=== PATIENT | male | born 1935 | race Caucasian/White ===

== ENCOUNTER 2022-09-03 11:42 | Emergency (ER) | payer MEDICARE, OTHER, SELFPAY ==
[2022-09-03 11:44] VITALS: BP 133/73; PULSE 53; RESP 18; TEMP 36.2; O2SAT 96; BMI 28.7
--- NOTE | 2022-09-03 11:44 | ED_ITS ---
HPI - General Adult General Date Seen: 09/03/22 Chief complaint: Neuro Symptoms/Altered Deficit Stated complaint: Slurred speech last night Time Seen by Provider: 09/03/22 11:42 Source: patient and family Mode of arrival: ambulatory Limitations: no limitations History of Present Illness HPI narrative: Patient is an 86-year-old male who had an episode last night of garbled speech. His son is here with him and helps to provide history. He apparently had called his daughter last night at around 7:00 p.m. and his speech was not making any sense. He was speaking relatively fluently but what he was saying did not make any sense. Patient says he was not aware of any problem when he called his daughter, he was surprised that his speech was off but he was aware of it once he started talking. He had not noted any problems prior to that and did not notice any other symptoms such as weakness, difficulty with vision, balance, swallowing, and did not have any headache, nausea, or other symptoms such as chest pain, lightheadedness, palpitations, shortness of breath etcetera. Over the course of their conversation, symptoms apparently improved, and they checked in on him a couple of times later in the evening and he was fine. They had apparently called paramedics but he was feeling fine at that time and declined transfer. His son does bring him in today for evaluation. He says he feels fine today, denies any symptoms. He denies any prior history of stroke. He does not have a history of atrial fibrillation, does take Coumadin due to history of valve replacement. Denies any recent trauma or illness. Related Data Home Medications Medication Instructions Recorded Confirmed atorvastatin 20 mg tablet 20 mg PO HS 12/23/21 08/26/22 celecoxib 200 mg capsule 200 mg PO DAILY 12/23/21 08/26/22 cholecalciferol (vitamin D3) 50 50 mcg PO DAILY 12/23/21 08/26/22 mcg (2,000 unit) capsule (Vitamin D3) warfarin 5 mg tablet 5 mg PO DAILY 12/23/21 08/26/22 Allergies Allergy/AdvReac Type Severity Reaction Status Date / Time indomethacin Allergy Intermediate Bleeding Verified 08/26/22 09:34 NSAIDS (Non-Steroidal Allergy Intermediate Bleeding Verified 08/26/22 09:34 Anti-Inflamma Sulfa (Sulfonamide Allergy Intermediate Hives Verified 08/26/22 09:34 Antibiotics) Review of Systems Status of ROS: Reports: 10 or more systems reviewed and unremarkable except as noted in History and below [facility] Medical History Arthritis Congestive heart failure (CHF) Hyperlipemia SHASTA (obstructive sleep apnea) Osteoarthritis of right knee Surgical History 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) H/O mitral valve replacement H/O vasectomy 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 In general, an alert, well-appearing patient. Head: Normocephalic, atraumatic. Eyes: Pupils are equal reactive. Extraocular movements are full. Conjunctivae are normal. ENT: Mucous membranes are moist. Throat is normal. Neck: Supple without lymphadenopathy. Heart: Regular rate and rhythm. No murmur or rub. Lungs: Clear bilaterally. No increased work of breathing, crackles or wheezes. Abdomen: Soft and nontender. No organomegaly. Extremities: Well perfused. No edema. No calf tenderness. Pulses intact. Neurologic: Patient is alert and oriented to person and place. Speech is fluent. Face is symmetric. Moves all extremities equally. Affect: Normal. Skin: Warm and dry. Well perfused. Const: Vital Signs, click to edit/add: Vital Signs - 24 hr 09/03/22 11:44 09/03/22 14:00 Temperature 97.2 F L Pulse Rate [Pulse Oximeter] 53 L 63 Respiratory Rate 18 Blood Pressure [Ri ght Upper Arm] 133/73 133/79 Pulse Oximetry 96 97 Oxygen Delivery Me thod Room Air Course Course Hospital Course: Diagnostic considerations include TIA, stroke, hemorrhage, encephalopathy, metabolic derangement, infectious process, acute coronary syndrome, among others. Patient had an EKG here which shows a sinus bradycardia, first-degree AV block with an incomplete right bundle-branch block. His ventricular rate is 40. I did labs which are generally unremarkable. White count is normal, hemoglobin is 13.4, platelets are very minimally low 134. INR is therapeutic at 2.4. Electrolytes are normal, creatinine is 1.1, blood sugar is 85. LFTs unremarkable, CRP less than 0.5. COVID is negative, TSH is normal, point of care troponin was 0.04. Head CT and CT angiogram read by Radiology was as fo ray[place]: IMPRESSION: 1. No CT evidence of acute cortical infarct. No acute intracranial hemorrhage. No other acute intracranial findings. 2. Mild chronic microvascular ischemic changes and multiple chronic bilateral cerebellar infarcts. Preliminary Report: Atherosclerotic disease. No large vessel occlusion. No definite acute intracranial process. No extra-axial fluid collections. No significant carotid artery stenosis. Please see final report I have reviewed all this with the patient and his son. I did discuss all this with the neurologist on-call at [place] as well, Dr. Feliciano. He did not have any recommendations for a change in anticoagulation. He felt that discharge with outpatient follow-up for further evaluation was reasonable. I do think that I am going to go ahead and have the patient set up for a Holter monitor, just to make sure that he is not having more significant bradycardia which might have contributed to his symptoms yesterday. All then have him follow up with his clinic as an outpatient and they can decide on further workup is indicated. Return at any time for recurrent symptoms or other concerns. Vital Signs Vital signs: Initial Vital Signs Temperature 97.2 F L 09/03/22 11:44 Temperature Source Temporal Artery Scan 09/03/22 11:44 Pulse Rate 53 L 09/03/22 11:44 Respiratory Rate 18 09/03/22 11:44 Blood Pressure 133/73 09/03/22 11:44 Blood Pressure Mean 93 09/03/22 11:44 Blood Pressure Position Supine 09/03/22 11:44 Pulse Oximetry 96 09/03/22 11:44 Oxygen Delivery Method 09/03/22 11:44 Vital Signs Temperature 97.2 F L 09/03/22 11:44 Pulse Rate 53 L 09/03/22 11:44 Respiratory Rate 18 09/03/22 11:44 Blood Pressure 133/73 09/03/22 11:44 Pulse Oximetry 96 09/03/22 11:44 Oxygen Delivery Method 09/03/22 11:44 Temperature 97.2 F L 09/03/22 11:44 Pulse Rate 63 09/03/22 14:00 Respiratory Rate 18 09/03/22 11:44 Blood Pressure 133/79 09/03/22 14:00 Pulse Oximetry 97 09/03/22 14:00 Oxygen Delivery Method 09/03/22 11:44 Medical Decision Making Lab Data Labs: Lab Results 09/03/22 09/03/22 09/03/22 Range/Units 12:27 12:30 12:30 WBC 8.43 (4.50-11.00) K/uL RBC 4.33 (4.30-5.90) m/uL Hgb 13.4 L (13.5-17.5) gm/dL Hct 40.8 (37.0-53.0) % MCV 94 (80-100) fL MCH 31 (26-34) pg MCHC 33 (32-36) gm/dL RDW Coeff of [place] 13.6 (11.5-15.5) % Plt Count 134 L (140-440) K/uL Neut % (Auto) 66.0 (42.0-72.0) % Lymph % (Auto) 25.6 (20-44) % [place] % (Auto) 6.3 (0.0-11.0) % Eos % (Auto) 1.8 (0.0-7.0) % Baso % (Auto) 0.2 (0.0-3.0) % Neut # (Auto) 5.56 (1.7-7.0) K/uL Lymph # (Auto) 2.16 (0.90-2.90) K/uL [place] # (Auto) 0.50 (0.00-0.90) K/UL Eos # (Auto) 0.15 (0.00-0.50) K/uL Baso # (Auto) 0.02 (0.00-0.30) K/uL ESR 3 (2-15) mm/hr INR (0.91-1.10) APTT (23-33) Seconds Sodium (135-149) mmol/L Potassium (3.6-5.1) mmol/L Chloride (96-114) mmol/L Carbon Dioxide (20-32) mmol/L BUN (7-30) mg/dL Creatinine (0.5-1.5) mg/dL Estimated Creat Clear Estimated GFR ml/min Glucose (60-115) mg/dL Calcium (8.4-10.6) mg/dL Total Bilirubin (0.1-1.5) mg/dL Direct Bilirubin (0.0-0.5) mg/dL AST (12-35) U/L ALT (4-50) U/L Alkaline Phosphatase (40-150) U/L C-Reactive Protein (0.5-1.0) mg/dL Total Protein (6.0-8.3) g/dL Albumin (3.3-5.0) g/dL TSH (0.270-4.200) uIU/mL SARS-CoV-2 (PCR) (Negative) POC Troponin I 0.04 (0.01-0.04) ng/ml 09/03/22 09/03/22 09/03/22 Range/Units 12:30 12:30 12:30 WBC (4.50-11.00) K/uL RBC (4.30-5.90) m/uL Hgb (13.5-17.5) gm/dL Hct (37.0-53.0) % MCV (80-100) fL MCH (26-34) pg MCHC (32-36) gm/dL RDW Coeff of [place] (11.5-15.5) % Plt Count (140-440) K/uL Neut % (Auto) (42.0-72.0) % Lymph % (Auto) (20-44) % [place] % (Auto) (0.0-11.0) % Eos % (Auto) (0.0-7.0) % Baso % (Auto) (0.0-3.0) % Neut # (Auto) (1.7-7.0) K/uL Lymph # (Auto) (0.90-2.90) K/uL [place] # (Auto) (0.00-0.90) K/UL Eos # (Auto) (0.00-0.50) K/uL Baso # (Auto) (0.00-0.30) K/uL ESR (2-15) mm/hr INR 2.41 H (0.91-1.10) APTT 41 H (23-33) Seconds Sodium 137 (135-149) mmol/L Potassium 4.4 (3.6-5.1) mmol/L Chloride 106 (96-114) mmol/L Carbon Dioxide 27 (20-32) mmol/L BUN 27 (7-30) mg/dL Creatinine 1.1 (0.5-1.5) mg/dL Estimated Creat Clear 51.62 Estimated GFR 66 ml/min Glucose 85 (60-115) mg/dL Calcium 8.6 (8.4-10.6) mg/dL Total Bilirubin 0.7 (0.1-1.5) mg/dL Direct Bilirubin 0.1 (0.0-0.5) mg/dL AST 29 (12-35) U/L ALT 23 (4-50) U/L Alkaline Phosphatase 78 (40-150) U/L C-Reactive Protein < 0.5 L (0.5-1.0) mg/dL Total Protein 6.4 (6.0-8.3) g/dL Albumin 3.7 (3.3-5.0) g/dL TSH 2.750 (0.270-4.200) uIU/mL SARS-CoV-2 (PCR) (Negative) POC Troponin I (0.01-0.04) ng/ml 09/03/22 Range/Units 12:30 WBC (4.50-11.00) K/uL RBC (4.30-5.90) m/uL Hgb (13.5-17.5) gm/dL Hct (37.0-53.0) % MCV (80-100) fL MCH (26-34) pg MCHC (32-36) gm/dL RDW Coeff of [place] (11.5-15.5) % Plt Count (140-440) K/uL Neut % (Auto) (42.0-72.0) % Lymph % (Auto) (20-44) % [place] % (Auto) (0.0-11.0) % Eos % (Auto) (0.0-7.0) % Baso % (Auto) (0.0-3.0) % Neut # (Auto) (1.7-7.0) K/uL Lymph # (Auto) (0.90-2.90) K/uL [place] # (Auto) (0.00-0.90) K/UL Eos # (Auto) (0.00-0.50) K/uL Baso # (Auto) (0.00-0.30) K/uL ESR (2-15) mm/hr INR (0.91-1.10) APTT (23-33) Seconds Sodium (135-149) mmol/L Potassium (3.6-5.1) mmol/L Chloride (96-114) mmol/L Carbon Dioxide (20-32) mmol/L BUN (7-30) mg/dL Creatinine (0.5-1.5) mg/dL Estimated Creat Clear Estimated GFR ml/min Glucose (60-115) mg/dL Calcium (8.4-10.6) mg/dL Total Bilirubin (0.1-1.5) mg/dL Direct Bilirubin (0.0-0.5) mg/dL AST (12-35) U/L ALT (4-50) U/L Alkaline Phosphatase (40-150) U/L C-Reactive Protein (0.5-1.0) mg/dL Total Protein (6.0-8.3) g/dL Albumin (3.3-5.0) g/dL TSH (0.270-4.200) uIU/mL SARS-CoV-2 (PCR) Negative SARS-CoV-2 (Negative) POC Troponin I (0.01-0.04) ng/ml Discharge Plan Discharge Prescriptions: No Action atorvastatin 20 mg tablet 20 mg PO HS Label Comments: TAKE 1 TABLET BY MOUTH EVERY DAY warfarin 5 mg tablet 5 mg PO DAILY Label Comments: TAKE HALF TABLET (2.5 MG) BY MOUTH EVERY MONDAY. TAKE 1 TABLET (5 MG) ALL OTHER DAYS OR DIRECTED cholecalciferol (vitamin D3) [Vitamin D3] 50 mcg (2,000 unit) capsule 50 mcg PO DAILY celecoxib 200 mg capsule 200 mg PO DAILY Label Comments: TAKE 1 CAPSULE BY MOUTH ONCE DAILY WITH A MEAL. Follow Up/Referrals: Jack Smith MD [Primary Care Provider] -
--- NOTE | 2022-09-03 12:25 | CT_ITS ---
Patient: PROSPER CANDELARIO Facility:?[facility] Patient ID:?[id number] Site Patient [id number]:?[id number]. Site :?[id number] Study:?CT-head Angio NON-ACUTE PE 95cc ISOVUE 370-09/03/2022 2:21:06 PM Ordering Physician:Christopher Dyson Final Report: INDICATION: Acute stroke, garbled speech. TECHNIQUE: CTA head with contrast bolus tracking and 3D MIP reconstruction. FINDINGS: There is normal opacification of the intracranial vasculature. There is no large vessel occlusion. No aneurysm is identified. IMPRESSION: No large vessel occlusion. Please note that all CT scans at this facility use dose modulation, iterative reconstruction, and/or weight-based dosing when appropriate to reduce radiation dose to as low as reasonably achievable. Dictated by Adriano Pendleton MD @ 09/03/2022 11:10:13 PM Signed by:?Adriano Pendleton MD @09/03/2022 11:10:13 PM (Electronic Signature)
--- NOTE | 2022-09-03 12:25 | CRLHL7_ITS ---
For Patients: As a result of the Century Cures Act, medical imaging exams and procedure reports are released immediately into your electronic medical record. You may view this report before your referring provider. If you have questions, please contact your health care provider. INDICATION: Acute stroke, garbled speech. TECHNIQUE: CTA head with contrast bolus tracking and 3D MIP reconstruction. FINDINGS: There is normal opacification of the intracranial vasculature. There is no large vessel occlusion. No aneurysm is identified. IMPRESSION: No large vessel occlusion. Please note that all CT scans at this facility use dose modulation, iterative reconstruction, and/or weight-based dosing when appropriate to reduce radiation dose to as low as reasonably achievable. Dictated by Adriano Pendleton MD @ 09/03/2022 11:10:13 PM (Electronically Signed)
--- NOTE | 2022-09-03 12:26 | CRLHL7_ITS ---
For Patients: As a result of the Century Cures Act, medical imaging exams and procedure reports are released immediately into your electronic medical record. You may view this report before your referring provider. If you have questions, please contact your health care provider. INDICATION: Garbled speech. TECHNIQUE: CT of the head without contrast. Coronal and sagittal reformats are included. COMPARISON: None. FINDINGS: No CT evidence of acute cortical infarct. No hyperdense vessels to suggest intracranial thrombus. No acute intracranial hemorrhage. No mass effect or midline shift. No hydrocephalus or extra-axial collections. Patchy white matter hypoattenuation, typical microvascular ischemic changes. Multiple small infarcts within the bilateral cerebellar hemispheres pin No acute osseous abnormalities. Mastoid air cells and paranasal sinuses are clear. Normal soft tissues. IMPRESSION: 1. No CT evidence of acute cortical infarct. No acute intracranial hemorrhage. No other acute intracranial findings. 2. Mild chronic microvascular ischemic changes and multiple chronic bilateral cerebellar infarcts. Please note that all CT scans at this facility use dose modulation, iterative reconstruction, and/or weight-based dosing when appropriate to reduce radiation dose to as low as reasonably achievable. Dictated by Ramírez Hameed MD @ 09/03/2022 2:53:11 PM (Electronically Signed)
[2022-09-03 13:05] LABS: Troponin, Point-of-Care* 0.04 ng/ml (0.01-0.04)
[2022-09-03 13:16] LABS: Basophils Absolute Auto 0.02 K/uL (0.00-0.30); Basophils Percent Auto 0.2 % (0.0-3.0); Eosinophils Absolute Auto 0.15 K/uL (0.00-0.50); Eosinophils Percent Auto 1.8 % (0.0-7.0); Hematocrit 40.8 % (37.0-53.0); Hemoglobin* 13.4 gm/dL (13.5-17.5); Immature Granulocytes Abs Auto 0.01 K/uL (0.00-0.30); Immature Granulocytes Pct Auto 0.1 %; Lymphocytes Absolute Auto 2.16 K/uL (0.90-2.90); Lymphocytes Percent Auto 25.6 % (20-44); Mean Corpuscular HGB Conc 33 gm/dL (32-36); Mean Corpuscular Hemoglobin 31 pg (26-34); Mean Corpuscular Volume 94 fL (80-100); Monocytes Percent Auto 6.3 % (0.0-11.0); Neutrophils Absolute Auto 5.56 K/uL (1.7-7.0); Platelet Count* 134 K/uL (140-440); RDW Coefficient of Variation % 13.6 % (11.5-15.5); Red Blood Count 4.33 m/uL (4.30-5.90); White Blood Count* 8.43 K/uL (4.50-11.00)
[2022-09-03 13:33] LABS: Slide Review Reflex No
[2022-09-03 13:44] LABS: Chloride* 106 mmol/L (96-114)
[2022-09-03 13:45] LABS: Albumin* 3.7 g/dL (3.3-5.0); Sodium* 137 mmol/L (135-149)
[2022-09-03 13:46] LABS: INR 2.41 (0.91-1.10); Potassium* 4.4 mmol/L (3.6-5.1); Prothrombin Time 27.4 Seconds
[2022-09-03 13:47] LABS: Creatinine* 1.1 mg/dL (0.5-1.5); Est. Creatinine Clearance* 51.62; Estimated Glomerular Filt Rate 66 ml/min; Partial Thromboplastin Time* 41 Seconds (23-33)
[2022-09-03 13:48] LABS: Alkaline Phosphatase* 78 U/L (40-150); Aspartate Amino Transferase* 29 U/L (12-35); Bilirubin Direct* 0.1 mg/dL (0.0-0.5); Bilirubin Total* 0.7 mg/dL (0.1-1.5); Carbon Dioxide* 27 mmol/L (20-32); Total Protein* 6.4 g/dL (6.0-8.3)
[2022-09-03 13:49] LABS: Alanine Aminotransferase* 23 U/L (4-50); Blood Urea Nitrogen* 27 mg/dL (7-30); Calcium* 8.6 mg/dL (8.4-10.6); Glucose* 85 mg/dL (60-115)
[2022-09-03 13:54] LABS: C Reactive Protein* < 0.5 mg/dL (0.5-1.0)
[2022-09-03 13:57] LABS: SARS PCR* Negative SARS-CoV-2 (Negative)
[2022-09-03 14:00] VITALS: BP 133/79; PULSE 63; O2SAT 97
[2022-09-03 14:25] LABS: Erythrocyte SedimentationRate* 3 mm/hr (2-15)
[2022-09-03 16:01] VITALS: BP 153/101; PULSE 53; RESP 20
== END 2022-09-03 16:29 | disposition home or self-care (01) ==
PROVIDERS: Emergency Provider Emergency Medicine; PCP Surgery
DX: R47.81 Slurred speech (principal)
CPT/HCPCS: 36415; 70450; 70496; 70498; 80048; 80076; 84443; 84484; 85025; 85610; 85651; 85730; 86140; 87635; 93005; 93225; 93226; 99284; 99285; Q9967

== ENCOUNTER 2022-10-05 15:51 | Emergency (ER) | payer MEDICARE, OTHER, SELFPAY ==
[2022-10-05 16:16] VITALS: BP 170/91; PULSE 64; RESP 16; TEMP 36.6; O2SAT 97; BMI 30.8
[2022-10-05 16:26] VITALS: O2SAT 98
--- NOTE | 2022-10-05 16:26 | CRLHL7_ITS ---
For Patients: As a result of the Cures Act, medical imaging exams and procedure reports are released immediately into your electronic medical record. You may view this report before your referring provider. If you have questions, please contact your health care provider. Indication: Trauma. Technique: Right shoulder, 3 views. Comparison: None. Findings: Bones: Alignment is normal. No fractures or bone lesions. Joint spaces: Diffuse degenerative changes.. Soft tissues: Unremarkable. Impression: No sign of acute injury. Dictated by Mary Beth Ray MD @ 10/05/2022 5:26:34 PM (Electronically Signed)
--- NOTE | 2022-10-05 16:27 | CRLHL7_ITS ---
For Patients: As a result of the Century Cures Act, medical imaging exams and procedure reports are released immediately into your electronic medical record. You may view this report before your referring provider. If you have questions, please contact your health care provider. INDICATION: FALL ON BLOOD THINNERS TECHNIQUE: CT of the head without contrast. Coronal and sagittal reformats. Bone and soft tissue algorithms. COMPARISON: CT 09/03/2022 FINDINGS: Small chronic lacunar infarcts in the bilateral cerebellum. No acute intracranial hemorrhage or extraaxial collection. No evidence of acute cortical infarction. No mass effect or midline shift. There is moderate enlargement of the 3rd and lateral ventricles, somewhat disproportionate to the depths of the sulci, with crowding of structures at the vertex. Moderate regions of decreased attenuation within the periventricular and subcortical white matter of both cerebral hemispheres most likely reflects chronic microvascular ischemic disease and age related change in this patient. Vascular calcifications within the carotid siphons and vertebral arteries. Orbital contents are normal. No calvarial fractures. No lytic or sclerotic osseous lesions within the calvarium or skull base. Scalp and other imaged soft tissue structures are normal. Mastoid air cells are clear. Chronic nonunited C1 anterior arch fracture. IMPRESSION: 1. No acute intracranial abnormality. 2. Disproportionate enlargement of the ventricles with respect to depth of the sulci raising the possibility of communicating/normal pressure hydrocephalus in the appropriate clinical setting. 3. Chronic lacunar infarcts in the bilateral cerebellum. 4. Chronic nonunited C1 anterior arch fracture. Please note that all CT scans at this facility use dose modulation, iterative reconstruction, and/or weight-based dosing when appropriate to reduce radiation dose to as low as reasonably achievable. Dictated by Royer Lovell MD @ 10/05/2022 6:06:40 PM (Electronically Signed)
[2022-10-05 17:49] LABS: Chloride* 106 mmol/L (96-114)
[2022-10-05 17:50] LABS: Potassium* 4.3 mmol/L (3.6-5.1); Sodium* 137 mmol/L (135-149)
[2022-10-05 17:52] LABS: Carbon Dioxide* 25 mmol/L (20-32); Creatinine* 1.1 mg/dL (0.5-1.5); Est. Creatinine Clearance* 51.62; Estimated Glomerular Filt Rate 66 ml/min; INR 2.91 (0.91-1.10); Prothrombin Time 31.8 Seconds
[2022-10-05 17:53] VITALS: BP 142/65; PULSE 56; O2SAT 95
[2022-10-05 17:53] LABS: Blood Urea Nitrogen* 28 mg/dL (7-30); Calcium* 9.1 mg/dL (8.4-10.6); Glucose* 112 mg/dL (60-115)
[2022-10-05 18:02] LABS: NT Pro B Type NatriureticPept* 1140 pg/mL
[2022-10-05 18:04] LABS: Troponin I* 0.04 ng/mL (0.01-0.04)
[2022-10-05 18:12] LABS: PCR FLU A Negative PCR FLU A (Negative); PCR FLU B Negative PCR FLU B (Negative); PCR RSV Negative PCR RSV (Negative)
--- NOTE | 2022-10-05 18:13 | ED.GENADULT ---
HPI - General Adult General Chief complaint: Fall/Minor Trauma Stated complaint: Fall, dizzy, doesn't know why he fell Time Seen by Provider: 10/05/22 16:20 History of Present Illness HPI narrative: 86-year-old man brought to the emergency department via EMS [place] get some wood. TTA. In later conversation Yo and his son acknowledge somewhat of a shuffling gait for some time. Unclear circumstances to this fall though he does note that fell few times today and more recently. Says he has been falling lately. Or least endorses weakness over the last year so. Unclear whether not he is really feeling more dizzy or how fell today. Further questioning reveals recent evaluation for arrhythmia. This has included some periods of tachycardia and bradycardia per their report. Does not sound as though much came of the monitoring. Their take from meeting with the transaction processor was that while we could put a pacemaker in you but I do not think it will do much good No headaches. No visual changes. Primary complaint of pain is in the right shoulder area. Thinks probably fell on this area. No chest area pain. Scraped his head yesterday in superior portion-noting this abrasion during exam. Related Data Home Medications Medication Instructions Recorded Confirmed atorvastatin 20 mg tablet 20 mg PO HS 12/23/21 10/05/22 celecoxib 200 mg capsule 200 mg PO DAILY 12/23/21 10/05/22 cholecalciferol (vitamin D3) 50 50 mcg PO DAILY 12/23/21 10/05/22 mcg (2,000 unit) capsule (Vitamin D3) warfarin 5 mg tablet 5 mg PO DAILY 12/23/21 10/05/22 Allergies Allergy/AdvReac Type Severity Reaction Status Date / Time indomethacin Allergy Intermediate Bleeding Verified 10/05/22 16:27 Sulfa (Sulfonamide Allergy Intermediate Hives Verified 10/05/22 16:27 Antibiotics) Review of Systems Status of ROS: Reports: 6 or more systems reviewed and unremarkable except as noted in History and below [facility] Medical History Arthritis ?M19.90 - Unspecified osteoarthritis, unspecified site (ICD-10) Congestive heart failure (CHF) ?I50.9 - Heart failure, unspecified (ICD-10) Hyperlipemia ?E78.5 - Hyperlipidemia, unspecified (ICD-10) SHASTA (obstructive sleep apnea) ?G47.33 - Obstructive sleep apnea (adult) (pediatric) (ICD-10) Osteoarthritis of right knee ?M17.11 - Unilateral primary osteoarthritis, right knee (ICD-10) Surgical History 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) ?M43.27 - Fusion of spine, lumbosacral region (ICD-10) H/O mitral valve replacement ?Z95.2 - Presence of prosthetic heart valve (ICD-10) H/O vasectomy ?Z98.52 - Vasectomy status (ICD-10) 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 Evidence of bleeding with light abrasion on top of scalp relatively fresh possibly yesterday. Small blood with abrasion at left hand dorsum middle. GCS of 15. Pupils are brisk and equal approximate 2 mm. Able to move all extremities without difficulty other than protecting the right arm appears at the shoulder. Cranial nerves 2-12 are intact. Extraocular movements are full and without nystagmus. Bruise on left mid back musculature. Nontender. Soreness to palpation and fullness anterolateral shoulder the deltoid area or little anterior to the acromion. Any movement really of the shoulder joint though hurts. I do not see indication of trauma at the elbow. There is no pain to direct palpation of the AC joint area or the scapula. A little too tender to really test rotator cuff musculature. Extremities otherwise are without indication of injury. No lower extremity edema. Well perfused. Head other than as noted above is atraumatic. Neck is supple nontender. No reproduction of pain to palpation over the chest. Abdomen is overweight soft and nontender. Heart with regular rate and rhythm slow near bradycardic. No instability or pain to anterior compression/palpation of the pelvis. Back as noted above is nontender with left midback bruising. Oropharynx with intact dentition. Is moist. Const: Vital Signs, click to edit/add: Vital Signs - 24 hr 10/05/22 16:16 10/05/22 16:26 10/05/22 17:53 Temperature 97.8 F Pulse Rate 56 L Pulse Rate [Pulse Oximeter] 64 Respiratory Rate 16 Blood Pressure 142/65 H Blood Pressure [Le ft Upper Arm] 170/91 H Pulse Oximetry 97 98 95 Oxygen Delivery Me thod Room Air Documenting provider has reviewed patient's vital signs: yes Course Vital Signs Vital signs: Initial Vital Signs Temperature 97.8 F 10/05/22 16:16 Temperature Source Temporal Artery Scan 10/05/22 16:16 Pulse Rate 64 10/05/22 16:16 Respiratory Rate 16 10/05/22 16:16 Blood Pressure 170/91 H 10/05/22 16:16 Blood Pressure Mean 117 H 10/05/22 16:16 Blood Pressure Position Supine 10/05/22 16:16 Pulse Oximetry 97 10/05/22 16:16 Oxygen Delivery Method Room Air 10/05/22 16:16 Vital Signs Temperature 97.8 F 10/05/22 16:16 Pulse Rate 64 10/05/22 16:16 Respiratory Rate 16 10/05/22 16:16 Blood Pressure 170/91 H 10/05/22 16:16 Pulse Oximetry 97 10/05/22 16:16 Oxygen Delivery Method Room Air 10/05/22 16:16 Temperature 97.8 F 10/05/22 16:16 Pulse Rate 56 L 10/05/22 17:53 Respiratory Rate 16 10/05/22 16:16 Blood Pressure 142/65 H 10/05/22 17:53 Pulse Oximetry 95 10/05/22 17:53 Oxygen Delivery Method Room Air 10/05/22 16:16 Medical Decision Making MDM Narrative Medical decision making narrative: Cardiac versus trip and fall. Head CT by my read seems to show enlarged right ventricle in particular while still present on prior CT is now more prominent. Concern of normal pressure hydrocephalus as reviewed by Radiology. This might explain some more recent discoordination. On labs INR is increasing. Within goal but might need some adjustment soon. Discussed with Dr. Paredes in Neurology anticipating workup yet tonight though after long conversation Mr. Vallejo would prefer to do this outpatient which I think is also acceptable as family is going to be able to be present until this gets sorted. Sister has wheeled walker. Feels he will be able to manage this. Mr. Orozco has standard walker. Given arm sling and feels improved. See patient discharge plan Lab Data Lab results reviewed: Yes I reviewed the patient's lab results Labs: Lab Results 10/05/22 10/05/22 Range/Units 17:05 17:11 INR 2.91 H (0.91-1.10) Sodium 137 (135-149) mmol/L Potassium 4.3 (3.6-5.1) mmol/L Chloride 106 (96-114) mmol/L Carbon Dioxide 25 (20-32) mmol/L BUN 28 (7-30) mg/dL Creatinine 1.1 (0.5-1.5) mg/dL Estimated Creat Clear 51.62 Estimated GFR 66 ml/min Glucose 112 (60-115) mg/dL Calcium 9.1 (8.4-10.6) mg/dL Troponin I 0.04 (0.01-0.04) ng/mL NT-Pro-B Natriuret Pep 1140 pg/mL SARS-CoV-2 (PCR) Negative SARS-CoV-2 (Negative) Influenza Type A (PCR) Negative PCR FLU A (Negative) Influenza Type B (PCR) Negative PCR FLU B (Negative) RSV (PCR) Negative PCR RSV (Negative) ECG Data Attestation: I personally reviewed and interpreted this ECG as follows: (Sinus rhythm rate of 65. First-degree AV block. Developing right bundle branch block) Critical Care Time Critical Care Time Total Critical Care Time in Minutes: 25 Discharge Plan Discharge Clinical Impression: Gait disturbance, Abrasion, Fall, Contusion of right shoulder Patient Disposition: Home w/ Parent or Adult Condition: Stable Additional Instructions: Wear this arm sling for comfort as needed over the next few days or week. I would try to ice the shoulder as discussed 2-3 times daily over the next few days. It sounds like it would be a good idea to have a walker for mobility in the short term. Perhaps a wheeled walker would do better as discussed. Please call tomorrow to [facility]. Phone number is [phone] You can mention that I spoke to Dr. Lena perez and we are recommending an evaluation for normal pressure hydrocephalus. (see radiology reads of imaging that we printed --take this with) Return for increasing and severe headache, any focal weakness, any other pass out event, chest pain, shortness of breath. If this shoulder isn't improving over a week, would follow-up with your primary care provider or Orthopedics (their phone #[phone]) for another evaluation. I would try to encourage early mobility of your shoulder if possible with some reaching exercises. Please also report your in INR to your managing Clinic. On 09/03 your INR was 2.4 and today it is 2.9 Prescriptions: No Action atorvastatin 20 mg tablet 20 mg PO HS Patient Comments: TAKE 1 TABLET BY MOUTH EVERY DAY warfarin 5 mg tablet 5 mg PO DAILY Patient Comments: TAKE HALF TABLET (2.5 MG) BY MOUTH EVERY MONDAY. TAKE 1 TABLET (5 MG) ALL OTHER DAYS OR DIRECTED cholecalciferol (vitamin D3) [Vitamin D3] 50 mcg (2,000 unit) capsule 50 mcg PO DAILY celecoxib 200 mg capsule 200 mg PO DAILY Patient Comments: TAKE 1 CAPSULE BY MOUTH ONCE DAILY WITH A MEAL. Follow Up/Referrals: Jack Smith MD [Primary Care Provider] - Stand Alone Forms: [employer] Info Instructions
[2022-10-05 19:02] LABS: SARS PCR* Negative SARS-CoV-2 (Negative)
[2022-10-05] MEDS: ACETAMINOPHEN 500 MG TABLET 1000 MG PO (20:23)
== END 2022-10-05 21:37 | disposition home or self-care (01) ==
PROVIDERS: Emergency Provider Family Medicine; PCP Surgery
DX: S40.011A Contusion of right shoulder, initial encounter (principal); W19.XXXA Unspecified fall, initial encounter; R26.9 Unspecified abnormalities of gait and mobility
CPT/HCPCS: 36415; 70450; 73030; 80048; 83880; 84484; 85610; 87631; 93005; 94761; 99284; 99291; A9270; G0390

== ENCOUNTER 2022-10-23 16:03 | Emergency (ER) | payer MEDICARE, OTHER, SELFPAY ==
[2022-10-23 16:14] VITALS: BP 155/76; PULSE 55; RESP 16; TEMP 36.4; O2SAT 98; BMI 29.4
--- NOTE | 2022-10-23 16:25 | CRLHL7_ITS ---
For Patients: As a result of the Century Cures Act, medical imaging exams and procedure reports are released immediately into your electronic medical record. You may view this report before your referring provider. If you have questions, please contact your health care provider. Indication: Headache Technique: Noncontrast head CT Comparison: Head CT 10/05/2022 Findings: No acute intracranial hemorrhage or mass. Generalized parenchymal volume loss. Periventricular hypo lucencies may represent chronic small vessel ischemic change. No acute extra-axial air fluid collections are seen. 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 The lateral and 3rd ventricles are slightly disproportionately enlarged compared to the sulci. Skull and scalp are unremarkable. Impression: 1. No acute intracranial hemorrhage or mass. Mild enlargement of the lateral 3rd ventricles slightly disproportionate to the sulci could be seen with NPH. Please note that all CT scans at this facility use dose modulation, iterative reconstruction, and/or weight-based dosing when appropriate to reduce radiation dose to as low as reasonably achievable. Dictated by Evelyn Anthony MD @ 10/23/2022 5:06:36 PM (Electronically Signed)
--- NOTE | 2022-10-23 17:16 | ED.GENADULT ---
HPI - General Adult General Chief complaint: Headache/Migraine Stated complaint: Unexplained headaches Time Seen by Provider: 10/23/22 16:05 Source: patient and family Mode of arrival: ambulatory Limitations: no limitations History of Present Illness HPI narrative: 86-year-old male coming in today complaining of a headache. He states that it comes across the forehead lasts for about a minute or less and then goes away. He states that has occurred about 3 times today. He is quite concerned because he never gets a headache. When these episodes occur he denies any neurologic deficits. He denies any confusion, slurred speech. He does state that he is unsteady on his feet but this is not necessarily new. He has suffered more recent falls and was seen in the ER in September, has since had neurology evaluation at no ran with MRI evaluation. I am unclear of those results, as he is unsure and his son was with him is also unsure of next steps. He denies any recent falls. No fevers or chills. No blurry vision. No changes in his hearing. No nausea or vomiting. No chest pain. He denies increasing weakness. Related Data Home Medications Medication Instructions Recorded Confirmed atorvastatin 20 mg tablet 20 mg PO HS 12/23/21 10/05/22 celecoxib 200 mg capsule 200 mg PO DAILY 12/23/21 10/05/22 cholecalciferol (vitamin D3) 50 50 mcg PO DAILY 12/23/21 10/05/22 mcg (2,000 unit) capsule (Vitamin D3) warfarin 5 mg tablet 5 mg PO DAILY 12/23/21 10/05/22 Allergies Allergy/AdvReac Type Severity Reaction Status Date / Time indomethacin Allergy Intermediate Bleeding Verified 10/05/22 16:27 Sulfa (Sulfonamide Allergy Intermediate Hives Verified 10/05/22 16:27 Antibiotics) Review of Systems Status of ROS: Reports: 10 or more systems reviewed and unremarkable except as noted in History and below [facility] Medical History Osteoarthritis of right knee ?M17.11 - Unilateral primary osteoarthritis, right knee (ICD-10) SHASTA (obstructive sleep apnea) ?G47.33 - Obstructive sleep apnea (adult) (pediatric) (ICD-10) Congestive heart failure (CHF) ?I50.9 - Heart failure, unspecified (ICD-10) Hyperlipemia ?E78.5 - Hyperlipidemia, unspecified (ICD-10) Arthritis ?M19.90 - Unspecified osteoarthritis, unspecified site (ICD-10) Surgical History Hx of tonsillectomy ?Z90.89 - Acquired absence of other organs (ICD-10) H/O vasectomy ?Z98.52 - Vasectomy status (ICD-10) 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) ?Z96.652 - Presence of left artificial knee joint (ICD-10) 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 Alert and oriented. Answers questions appropriately. Mood and affect are appropriate. Thoughts are goal oriented and rational. No tangential or magical thinking noted. Patient speaks in full sentences without needing to catch his breath. Speech is not slurred or pressured. HEENT: Normocephalic atraumatic. Pupils are equally round reactive to light. Extraocular muscles are intact. Conjunctivae are moist without any icterus noted. Moist mucous membranes. Neck is soft. Cardiovascular: Heart is regular rate and rhythm S1 and S2 are present without any murmurs. Lungs: Clear to auscultation bilaterally no wheezes rhonchi or rales are appreciated. Patient takes deep breaths without any discomfort. Abdomen: Soft and nontender nondistended with normal bowel sounds. Extremities: Bilateral lower extremities are without edema. Skin: Well perfused without any obvious rashes. Strength is 5/5 of the upper and lower extremities. Reflexes are 2+ and symmetric at the knees. Cranial nerves 3-12 are normal. [id number] is normal. There is no nystagmus either horizontally or vertically. Hand rfid systems engineer is normal and symmetric. No pronator drift. Normal facial symmetry. Const: Vital Signs, click to edit/add: Vital Signs - 24 hr 10/23/22 16:14 Temperature 97.5 F L Pulse Rate [Pulse Oximeter] 55 L Respiratory Rate 16 Blood Pressure [Ri ght Upper Arm] 155/76 H Pulse Oximetry 98 Oxygen Delivery Me thod Room Air Course Course Hospital Course: We discussed imaging today: Rule out any small bleed that may have been missed secondary to his falls and rule out increasing volume in the ventricles as he has had increased volume in the ventricles on previous imaging. Therefore we did go ahead proceed with a head CT which was unchanged from previous head CT. Vital Signs Vital signs: Initial Vital Signs Temperature 97.5 F L 10/23/22 16:14 Temperature Source Temporal Artery Scan 10/23/22 16:14 Pulse Rate 55 L 10/23/22 16:14 Respiratory Rate 16 10/23/22 16:14 Blood Pressure 155/76 H 10/23/22 16:14 Blood Pressure Mean 102 10/23/22 16:14 Blood Pressure Position Sitting 10/23/22 16:14 Pulse Oximetry 98 10/23/22 16:14 Oxygen Delivery Method Room Air 10/23/22 16:14 Vital Signs Temperature 97.5 F L 10/23/22 16:14 Pulse Rate 55 L 10/23/22 16:14 Respiratory Rate 16 10/23/22 16:14 Blood Pressure 155/76 H 10/23/22 16:14 Pulse Oximetry 98 10/23/22 16:14 Oxygen Delivery Method Room Air 10/23/22 16:14 Temperature 97.5 F L 10/23/22 16:14 Pulse Rate 55 L 10/23/22 16:14 Respiratory Rate 16 10/23/22 16:14 Blood Pressure 155/76 H 10/23/22 16:14 Pulse Oximetry 98 10/23/22 16:14 Oxygen Delivery Method Room Air 10/23/22 16:14 Medical Decision Making MDM Narrative Medical decision making narrative: 86-year-old male with 3 episodes of headache that lasted less than a minute, head CT unchanged from previous CT. Unclear etiology of his symptoms. We discussed symptomatic treatment and watchful waiting at the time. Discussed follow-up with neurology. Patient and son were in agreement and had no other questions. Medical Records Medical records reviewed: Yes I reviewed the patient's medical records Imaging Data CT scan - head: Attestation: I have reviewed the pertinent imaging results. Radiologist's impression: Noncontrast head CT Comparison: ?Head CT 10/05/2022 Findings: ?No acute intracranial hemorrhage or mass. Generalized parenchymal volume loss. Periventricular hypo lucencies may represent chronic small vessel ischemic change. No acute extra-axial air fluid collections are seen. 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 The lateral and 3rd ventricles are slightly disproportionately enlarged compared to the sulci. Skull and scalp are unremarkable. Impression: ?1. No acute intracranial hemorrhage or mass. Mild enlargement of the lateral 3rd ventricles slightly disproportionate to the sulci could be seen with NPH. Discharge Plan Discharge Clinical Impression: Headache Patient Disposition: Home, Self-Care Condition: Stable Additional Instructions: Return to the emergency department if your symptoms are getting worse. Otherwise, follow-up with your neurologist for further management. Prescriptions: No Action atorvastatin 20 mg tablet 20 mg PO HS Patient Comments: TAKE 1 TABLET BY MOUTH EVERY DAY warfarin 5 mg tablet 5 mg PO DAILY Patient Comments: TAKE HALF TABLET (2.5 MG) BY MOUTH EVERY MONDAY. TAKE 1 TABLET (5 MG) ALL OTHER DAYS OR DIRECTED cholecalciferol (vitamin D3) [Vitamin D3] 50 mcg (2,000 unit) capsule 50 mcg PO DAILY celecoxib 200 mg capsule 200 mg PO DAILY Patient Comments: TAKE 1 CAPSULE BY MOUTH ONCE DAILY WITH A MEAL. Follow Up/Referrals: Jack Smith MD [Primary Care Provider] - Stand Alone Forms: [employer] Info Instructions
== END 2022-10-23 17:30 | disposition home or self-care (01) ==
PROVIDERS: Emergency Provider Family Medicine; PCP Surgery
DX: R51.9 Headache, unspecified (principal)
CPT/HCPCS: 70450; 99283; 99284

== ENCOUNTER 2023-01-25 09:30 | Outpatient (RCR) | payer MEDICARE, OTHER, SELFPAY | END 2023-05-25 23:59 | disposition home or self-care (01) | PROVIDERS: PCP Surgery; Visit Provider Surgery | DX: R26.81 Unsteadiness on feet (principal); M48.061 Spinal stenosis, lumbar region without neurogenic claudication; M75.101 Unspecified rotator cuff tear or rupture of right shoulder, not specified as traumatic; M12.811 Other specific arthropathies, not elsewhere classified, right shoulder; W19.XXXS Unspecified fall, sequela; Z74.09 Other reduced mobility; R53.1 Weakness; M25.511 Pain in right shoulder; Z51.89 Encounter for other specified aftercare | CPT/HCPCS: 97110; 97112; 97161 ==

== ENCOUNTER 2023-07-05 09:30 | Outpatient (RCR) | payer MEDICARE, OTHER, SELFPAY | END 2023-09-12 14:25 | disposition home or self-care (01) | PROVIDERS: PCP Surgery; Visit Provider Surgery | DX: R26.89 Other abnormalities of gait and mobility (principal); R26.81 Unsteadiness on feet; R26.9 Unspecified abnormalities of gait and mobility; R53.1 Weakness; Z51.89 Encounter for other specified aftercare | CPT/HCPCS: 97110; 97112; 97161 ==

== ENCOUNTER 2023-11-01 23:19 | Emergency (ER) | payer MEDICARE, OTHER, SELFPAY ==
--- OUTSIDE RECORDS SUMMARY | 2023-11-01 23:23 | XMS_ITS | Clinical Summary ---
Author Name Unknown Organization [facility] Address [place], [place] [address] Care Team Providers Care Sheet Metal Worker Maintenance Name Role Phone Randy Roberts MD Unavailable Rocky Borrero Unavailable Jack Smith MD Primary Care Provider [phone] [facility], [place] Unavailable [phone] Allergies Active Allergy Reactions Criticality Noted Date Comments Indomethacin GI Bleeding Nsaids (Non-Steroidal Anti-Inflammatory Drug) Bleeding High 08/26/2022 Sulfa (Sulfonamide Antibiotics) *Unknown - Childhood Rxn 03/31/2014 Medications Medication Sig Dispensed Refills Start Date End Date Status cholecalciferol (VITAMIN D-3) 2,000 unit capsuleIndications: osteoporosis Take 1 capsule by mouth once daily. Indications: OSTEOPOROSIS 0 4 Active amoxicillin (AMOXIL) 500 mg capsule TAKE 4 CAPSULES BY MOUTH 1 HOUR BEFORE DENTAL APPOINTMENT 1 7 Active ascorbic acid, vitamin C, (VITAMIN C) 1,000 mg tablet Take 1 tablet by mouth once daily. 0 0 Active BiPapIndications:OS A (obstructive sleep apnea) bPAP machine for home use at pressure: I: 21 E: 17 cmw , Heated humidifier x 1 q 5 yr, Humidifier chamber x 1 q 6 mo, Full face mask x1 q 3mos, with cushion x 1 q mo, standard tubing x 1 q 3 mo, Headgear x 1 q 6 mo, Filters: Disposable x 2 q mo non-disposable filters x1 q 6mo, Length of Need: 99 months, Frequency of use: Daily 1 Each 3 Active celecoxib (CELEBREX) 200 mg capsuleIndications: Primary osteoarthritis of knee, unspecified laterality Take 1 Capsule (200 mg) by mouth once daily with a meal. 90 Capsule 3 3 Active atorvastatin (LIPITOR) 20 mg tabletIndications:H yperlipidemia, unspecified hyperlipidemia type Take 1 Tablet (20 mg) by mouth once daily. 90 Tablet 3 3 Active mupirocin (BACTROBAN OINTMENT) ointment Apply topically to affected area(s) 2 times daily if needed (buttocks). Active acetaminophen (TYLENOL EXTRA STRGTH) 500 mg tabletIndications:S /P placement of cardiac pacemaker Take 2 Tablets (1,000 mg) by mouth every 6 hours if needed for Pain (For mild pain.). Max acetaminophen dose: 4000mg in 24 hrs. 4 Active warfarin (COUMADIN) 5 mg tabletIndications:A nticoagulation monitoring, INR range 2.5-3.5,History of mitral valve replacement with mechanical valve Take by mouth 2.5 mg (5 mg x 0.5) every Mon, Fri; 5 mg (5 mg x 1) all other days in the evening OR as directed 4 Active clotrimazole (LOTRIMIN) 1 % creamIndications:In tertrigo Apply topically to affected area(s) two times daily. 85 g 1 4 Active clotrimazole-betame thasone cream (LOTRISONE) 1-0.05 % creamIndications:Fu ngal dermatitis Apply topically to affected area(s) two times daily. Use for 2 weeks and take at least a week off before using again. 45 g 3 3 10/09/19 24 Discontinu ed(*Medica tion adjustment ) Active Problems Problem Noted Date Diagnosed Date Osteoarthritis of fingers of hands, bilateral Sinus node dysfunction 07/07/2023 Second degree Mobitz II AV block 07/07/2023 Syncope 07/07/2023 Normal pressure hydrocephalus 10/21/2022 Overview: CT emergency room [place] with more prominent enlarged right ventricle - bigger than before - Neurology suggested evaluation for shunt Atrial fibrillation with slow ventricular respon se 09/09/2022 Stage 3a chronic kidney disease 09/09/2022 Melanoma of left upper arm 09/08/2021 SHASTA 02/27/2015 AHI-52 03/02/2015 Anticoagulation monitoring, INR range 2.5-3.5 Spinal stenosis, lumbar region, with right leg p ain 07/11/2011 Vitamin D deficiency 05/13/2009 HYPERLIPIDEMIA 06/06/2007 History of mitral valve replacement with mechani ko valve Overview: For severe mitral regurgitation. Lifelong anticoagulation. 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 09/08/2021 04/04/2022 Melanoma in situ of upper arm, left 08/23/2021 04/04/2022 Routine adult health maintenance 02/26/2018 04/02/2021 Overview: Colonoscopy 02/2018 normal, no follow up needed S/P MVR (mitral valve replacement) 04/26/2014 04/02/2021 Severe sepsis 04/24/2014 01/19/2021 Leukocytosis 04/24/2014 04/02/2021 ACP (advance care planning) 04/17/2014 04/04/2022 Overview: Patient has identified Health Care Agent(s): Yes Add Health Care Agents: Yes Medical Proxies Health Care Agent(s): Primary Health Care Agent: Diana Vallejo Relationship: Spouse , [phone] Secondary Health Care Agent: Alexander Vallejo Relationship: son , -c Conservator: Relationship: Phone: Guardian: Relationship: Phone: Pt has blank HCD form at home. Dysuria 02/20/2009 08/06/2010 Ingrowing nail 06/01/2008 04/02/2021 Corns and callosities 10/04/20072020 REPLACEMENT HEART VALVE BY OTHER MEANS 04/02/2014 Encounter for Long-Term (Cur rent) Use of Anticoagulants 12/03/2013 Overview: INR Goal Range: 2.5 -3.5 Congestive heart failure, unspecified 08/06/2010 Rheumatoid Arthritis 022 Encounters Date Type Department Care Team Description 10/30/2023 8:40 AM CDT Office Visit [facility] [place] [address] [address] Jack Smith MD Follow Up (Intertrigo has improved per patient report) 10/30/2023 Travel 10/20/2023 Anticoagulation (warfarin) [facility] [place] [address] [address] 1, [facility] Anticoagulation 10/19/2023 11:30 AM CDT Orders Only [facility] [place] [address] [place] [address] Lab, [place] [facility] 10/19/2023 Travel 10/16/2023 Orders Only [facility] Scanner 1 scan: (1-Ord) INCOMING RECORDS-LABS, [facility], 10/16/2023 10/13/2023 10:00 AM CDT Office Visit [facility] [address] [place] [address] Vin Faustin MD Teleheart, [place] [facility] (Mitral valve replacement) 10/13/2023 Travel 10/10/2023 Orders Only [facility] Scanner 1 scan: (1-Ord) INCOMING RECORDS-[facility], 10/10/2023 10/09/2023 7:25 AM CDT Office Visit [facility] [place] [address] [address] Jack Smith MD Medication Management 10/09/2023 Travel 10/05/2023 11:00 AM CDT Orders Only [facility] [place] [place] [address] Lab, [place] [facility] 10/05/2023 Anticoagulation (warfarin) [facility] [address] [place] [address] 1, [facility] Anticoagulation 10/05/2023 Travel 10/02/2023 Telephone [facility] [address] [place] [id number] [place] [phone] Hazel Marinelli, RON Device Check (Pacemaker alert transmission for AF) 09/26/2023 Refill [facility] [address] [facility] [place] [address] Brennon Biggs, Refill Request (Clotrimazole-betamet hasone Cream) 09/26/2023 Travel 09/25/2023 Telephone [facility] [address] [place] [address] Jack Smith MD Anticoagulation 09/24/2023 Travel 09/21/2023 9:50 AM CDT Orders Only [address] [address] Lab, [facility] 09/21/[address] [phone] Makenzie Jon, RON Results 09/21/2023 Anticoagulation (warfarin) [facility] [address] [place] [address] 1, [facility] Anticoagulation 09/21/2023 Travel 09/14/2023 Anticoagulation (warfarin) [facility] [address] [place] [address] 1, [facility] Anticoagulation 09/13/2023 1:30 PM CDT Orders Only [facility] [address] [place] [address] Lab, [place] [facility] 09/13/2023 Travel 09/08/2023 9:00 AM CDT Orders Only [facility] [address] [facility] [place] [address] Lab, [place] [facility] 09/08/2023 Telephone [facility] [address] [place] [address] 1, [facility] Anticoagulation (Supra Therapeutic INR ) 09/08/2023 Anticoagulation (warfarin) [facility] [address] [place] [address] 1, [facility] Anticoagulation (Lab ) 09/08/2023 Travel 08/29/2023 Refill [facility] [address] [place] [address] Jack Smith MD Refill Request (Warfarin) 08/25/2023 11:15 AM PROGRESSIVE CARE UNIT REGISTERED NURSE Orders Only [facility] [address] [place] [address] Lab, [place] [facility] 08/25/2023 Anticoagulation (warfarin) [facility] [address] [place] [address] 1, [facility] Anticoagulation (Lab ) 08/25/2023 Travel 08/11/2023 1:30 PM PROGRESSIVE CARE UNIT REGISTERED NURSE Orders Only [facility] [address] [place] [address] Lab, [place] [facility] 08/11/2023 Telephone [facility] [address] [place] [address] Jack Smith MD Anticoagulation (Dosing ) 08/11/2023 Anticoagulation (warfarin) [facility] [address] [place] [address] 1, [facility] Anticoagulation 08/11/2023 Travel 08/04/2023 11:20 AM PROGRESSIVE CARE UNIT REGISTERED NURSE Orders Only [address] [address] Lab, [place] [facility] 08/04/2023 Anticoagulation (warfarin) [facility] [address] [place] [address] 1, [facility] Anticoagulation 08/04/2023 Travel from Last 3 Months Immunizations Name Administration Dates Next Due AMB INFLUENZA IIV3 (AGE 65+ YRS) PF (Flu Clinic Only) 04/24/2018 AMB Influenza, IIV3 (Age >=3 years)(Flu Clinic Only) 04/16/2013,04/03/2012,05/04/2010 COVID-19 Vaccine Spikevax (M oderna 50mcg/0.5mL) 12YO+ [id number] Formula PF 10/30/2023,05/08/2023 COVID-19 vaccine (StumbleUpon[employer] NTech 30mcg/0.3mL) 12YO+ BIVALENT PF, MDV 04/04/2022 COVID-19 vaccine ([employer]umble[employer] NTech 30mcg/0.3mL) 12YO+ CARLITOS-SUCROSE PF, MDV 09/17/2021 COVID-19 vaccine ([employer]umble[employer] NTech 30mcg/0.3mL) PF, MDV 04/26/2021,08/20/2020,07/30/2020 Influenza, High-dose Inactivated 05/23/2016,02/17,02/28/2014 Influenza, IIV3 (Age >=3 years) 04/13/2011 Influenza, Inactivated AIIV4 (Age 65+ Years) Preserv Free 05/08/2023,04/04/2022,04/02/2021,2019 Influenza, Inactivated IIV3 (Age 65+ Years) Preserv Free 03/14/2019,07/04/2017 Pneumococcal Poly,23-Valent (Pneumovax) 08/06/2010 Pneumococcal conj 13-Valent (Prevnar 13) 03/10/2015 Td (Age >=7 Years) 08/24/2005 Tdap 05/26/2021,08/06/2010 Zoster (Shingrix-RZV, recombinant) 11/21/2018, Family History Medical History Relation Name Comments Cancer Brother 2 Colon--age 57 Other Brother 3 multiple sclero sis Heart Disease Father Rheumatic Hear t Disease Good Health Mother at 95 Other Sister 2 multiple sclero sis Relation Name Status Comments Brother 1 (Age 58) MS Brother 2 Brother 3 Father (Age 67) Rheumatic Heart Disease Mother (Age 95) Old age Sister 1 (Age 78) MS Sister 2 Social History Tobacco Use Types Packs/Day Years Used Date Smoking Tobacco: Never Smokeless Tobacco: Never Tobacco Cessation:Counseling Given: Yes Alcohol Use Standard Drinks/Week Comments No 0 (1 standard drink = 0.6 oz pur e alcohol) PHQ-2 Answer Date Recorded PHQ-2 TOTAL SCORE 0 05/08/2023 Social Connections Answer Date Recorded Frequency of Communication with Friends and Fami ly 0 02/06/2023 Financial Resource Strain Answer Date R ecorded Difficulty of Paying Living Expenses 3 02/06/2023 Difficulty of Paying Living Expenses Not on file 02/06/2023 Food Insecurity Answer Date Recorded Worried About Running Out of Food in the Last Ye ar 1 02/06/2023 Transportation Needs Answer Date Record ed Lack of Transportation (Medical) 1 02/06/2023 Housing Stability Answer Date Recorded Unable to Pay for Housing in the Last Year 1 02/06/2023 Sex and Gender Information Value Date Recorded Sex Assigned at Not on file Gender Identity Not on file Sexual Orientation Not on file Obstetrics History Last Filed Vital Signs Vital Sign Reading Time Taken Comments Blood Pressure 111/70 10/30/2023 8:51 AM CDT Pulse 82 10/30/2023 8:51 AM CDT Temperature 36.8 ??C (98.2 ??F) 07/08/2023 8:41 AM CS T Respiratory Rate 18 07/08/2023 8:41 AM PROGRESSIVE CARE UNIT REGISTERED NURSE Oxygen Saturation 97% 10/30/2023 8:51 AM CDT Inhaled Oxygen Concentration - - Weight 91.2 kg (201 lb) 10/30/2023 8:51 AM CDT Height 177.8 cm (5' 10) 07/07/2023 11:55 AM PROGRESSIVE CARE UNIT REGISTERED NURSE Body Mass Index 28.84 07/07/2023 11:55 AM PROGRESSIVE CARE UNIT REGISTERED NURSE Plan of Treatment Upcoming Encounters Date Type Department Care Team (Late st Contact Info) Description 11/02/2023 9:45 AM CDT Orders Only [facility] [address] [place] [address] Lab, [place] 11/28/2023 8:30 AM CDT Cardiac Device Check [facility] [address] [place] [address] 01/30/2024 Cardiac Device Check [facility] [phone] Health Maintenance Due Date Last Done Comments COVID-19 vaccine series ( season) 2023 10/30/2023, 05/08/2023, 04/04/2022, Additional history exists Influenza for age 65+ 02/18/2024 05/08/2023 , 04/04/2022, 04/02/2021, Additional history exists BMI (ht and wt on same day) for age 18+ 05/08/2024 05/08/2023, 04/24/2023, 02/06/2023, Additional history exists Depression screening for age 12+ 05/08/2024 05/08/2023, 05/08/2023, 04/07/2022, Additional history exists Medicare Wellness for age 65+ 05/08/2024, 04/04/2022, 04/02/2021, Additional history exists Tetanus booster 05/26/2031 05/26/2021, 07/20, 08/24/2005 Pneumococcal series for age 65+ Completed 5, 08/06/2010 Zoster (shingles) series for age 50+ Completed 11/21/2018, 08/28/2018 Tdap Completed 05/26/2021, 08/06/2010 Medical Devices Implanted Type Area Upholstery Covers Inspector Device Identifier Shelf Expiration Date Model / Serial / Lot Bone Matrix 10cc Vitoss Foam Ba2x Synth - [id number] Implanted:Qty : 1 on 04/15/2014 by Kunal Gerard MD at [facility] Right: Lumbar Vertebrae [place] [employer] 08/17/[id number] / / [id number] Screw Lmbr Post 7.7l48dnkh Cnnltd - [id number] Implanted:Qty : 1 on 04/15/2014 by Kunal Gerard MD at [facility] Right: Lumbar Vertebrae [employer] [id number]# / / Description:7.5 * 45 mm sext ant screw Screw Lmbr Post 7.1a63ajib Cnnltd - [id number] Implanted:Qty : 2 on 04/15/2014 by Kunal Gerard MD at [facility] Right: Lumbar Vertebrae Medtronic Spine/Ortho [id number]# / / [id number] - [id number] Implanted:Qty : 1 on 04/15/2014 by Kunal Gerard MD at [facility] Right: Lumbar Vertebrae Medtronic 11/07/2019 [id number] / / [id number] Description:Capstone control spinal system interbody fusion device (15 mm * 27 mm * 6 degrees) Chris 40mm Titnm Sextant - [id number] Implanted:Qty : 1 on 04/15/2014 by Kunal Gerard MD at [facility] Right: Lumbar Vertebrae Medtronic Spine/Ortho [id number]# / / Screw Lmbr Post [id number] Fa Cnnltd - [id number] Implanted:Qty : 1 on 04/15/2014 by Kunal Gerard MD at [facility] Right: Lumbar Vertebrae Medtronic Spine/Ortho [id number]# / / Chris 35mm Titnm Sextant - [id number] Implanted:Qty : 1 on 04/15/2014 by Kunal Gerard MD at [facility] Right: Lumbar Vertebrae Medtronic Spine/Ortho [id number]# / / Set Screw Lmbr Antltd - [id number] Implanted:Qty : 4 on 04/15/2014 by Kunal Gerard MD at [facility] Right: Lumbar Vertebrae Medtronic Spine/Ortho [id number]# / / Explanted Type Area Upholstery Covers Inspector Device Identifier Shelf Expiration Date Model / Serial / Lot Rinku - [id number] Explanted:Qty: 1 on 04/15/2014 by Kunal Gerard MD at [facility] Right: Spine Medtronic Spine/Ortho 02/21/2019 [id number] / / [id number] Procedures Procedure Name Priority Date/Time Associated Diagnosis Comments PROTIME-INR STAT 10/19/2023 12:09 PM CDT Anticoagulation monitoring, INR range 2.5-3.5 History of mitral valve replacement with mechanical valve SCAN CORRESP-LABORATORY RESULTS 10/16/2023 12:00 AM CDT SCAN CORRESP-LABORATORY RESULTS 10/10/2023 12:00 AM CDT INR,POCT Routine 10/05/2023 11:06 AM CDT Anticoagulation monitoring, INR range 2.5-3.5 History of mitral valve replacement with mechanical valve PROTIME-INR STAT 09/21/2023 10:14 AM CDT Anticoagulation monitoring, INR range 2.5-3.5 History of mitral valve replacement with mechanical valve PROTIME-INR STAT 09/13/2023 2:01 PM CDT Anticoagulation monitoring, INR range 2.5-3.5 History of mitral valve replacement with mechanical valve PROTIME-INR Routine 09/08/2023 9:20 AM CDT Anticoagulation monitoring, INR range 2.5-3.5 History of mitral valve replacement with mechanical valve INR,POCT Routine 08/25/2023 1:01 PM PROGRESSIVE CARE UNIT REGISTERED NURSE Anticoagulation monitoring, INR range 2.5-3.5 History of mitral valve replacement with mechanical valve INR,POCT Routine 08/11/2023 1:51 PM PROGRESSIVE CARE UNIT REGISTERED NURSE Anticoagulation monitoring, INR range 2.5-3.5 History of mitral valve replacement with mechanical valve PROTIME-INR STAT 08/04/2023 11:34 AM PROGRESSIVE CARE UNIT REGISTERED NURSE Anticoagulation monitoring, INR range 2.5-3.5 History of mitral valve replacement with mechanical valve from Last 3 Months Results * (ABNORMAL) PROTIME-INR (10/19/2023 12:09 PM CDT) Only the most recent of5 resultswithin the time period is included. INR 3.5(H) <1.3 10/19/2023 9:32 PM CDT [facility] PROTIME 37.4(H) 10.3 - 12.3 sec 10/19/2023 9:32 PM CDT [facility] Blood BLOOD SPECIMEN / Unknown Venipuncture / Unknown 10/19/2023 12:09 PM CDT 10/19/2023 12:09 PM CDT Narrative [facility] - 10/19/2023 9:32 PM CDT ?Therapeutic Range 2.0-3.0 for most anticoagulated patients 2.5-3.5 or 4.0 for high risk patients The INR is only used for patients on stable oral anticoagulant therapy. It makes no significant contribution to the diagnosis or treatment of patients whose Protime is prolonged for other reasons. INR results are increased when heparin levels exceed 1.0 U/mL, which corresponds to an aPTT >125 seconds if the patient is on UFH. Jack Smith MD HEMATOLOGY Performing Organization Address [facility] Co de Phone Number [facility] [address] [place] [address], * SCAN CORRESP-LABORATORY RESULTS (10/16/2023 12:00 AM CDT) Only the most recent of2 resultswithin the time period is included. Scanner OTHER * (ABNORMAL) INR,POCT (10/05/2023 11:06 AM CDT) Only the most recent of3 resultswithin the time period is included. INR 3.7(H) <1.3 10/05/2023 11:10 AM CDT [facility] Blood BLOOD SPECIMEN / Unknown 10/05/2023 11:06 AM CDT 10/05/2023 11:10 AM CDT Narrative [facility] - 10/05/2023 11:10 AM CDT ?Therapeutic Range 2.0-3.0 for most anticoagulated patients 2.5-3.5 or 4.0 for high risk patients Jack Smith MD LABORATORY Performing Organization Address [facility] de Phone Number [facility] [address] [place] [address], [place] [phone] from Last 3 Months Advance Directives Documents on File Type Date Recorded Patient Skin Fitter Expl anation Healthcare Directive 06/23/2021 022 * Full Code (Latest Code Status on File) Date Activated Date Inactivated Comments 07/07/2023 3:16 PM 07/08/2023 3:15 PM Question Answer Comments Code Status Discussion: Reviewed Preferences * Full Code Date Activated Date Inactivated Comments 09/08/2021 9:21 AM 09/08/2021 3:10 PM Question Answer Comments Code Status Discussion: Other not disc ussed * Full Code Date Activated Date Inactivated Comments 04/24/2014 6:07 AM 04/27/2014 2:46 PM * Full Code Date Activated Date Inactivated Comments 04/24/2014 3:58 AM 04/24/2014 6:07 AM * Full Code Date Activated Date Inactivated Comments 04/15/2014 11:29 AM 04/18/2014 5:44 PM Care Teams Sheet Metal Worker Maintenance Relationship Specialty Start Date End Date Jack Smith [place] [address] PCP - General Family Practice 10/08/13 Randy Roberts MD Surgery - Orthopedics 08/12/11 Rocky Borrero [address] [place] [address] Supervisor [place] 08/12/[address], [place] [address] 02/06/23
--- OUTSIDE RECORDS SUMMARY | 2023-11-01 23:23 | XMS_ITS | Continuity of Care Document ---
Author Name Unknown Organization [facility] Address [address] [place] [address] Phone Care Team Providers Care Truck Headlight Assembler Name Role Phone Denis Abraham MD Unavailable Unavailable Allergies, Adverse Reactions, Alerts Substance Reaction Status Criticality INDOMETHACIN SODIUM Active No Infor mation indomethacin Active No Information Medications Medication Instructions Dosage Effective Dates (start - stop) Status Comments COUMADIN (unknown strength) Not Available - Active LOVENOX (unknown strength) Not Available - Active CELEBREX (unknown strength) Not Available - Active TYLENOL EXTRA STRENGTH (unknown strength) Not Available - Active Procedures Procedure Date Office/Outpatient Visit,[facility] 2013 X-Ray Exam Lwr Spine, Min 4 Views Advance Directives Directive Yes / No Effective Date File Name No Information Encounters Encounter Description Practice Location Reason(s) For Visit Diagnoses Date Provider Providers Copied on Encounter [facility], [address], [place], [place], [id number], [place] tel:[phone] [facility] No Information 2-201 5 Abraham Denis. [facility] [place], [address] [place] [address], [address], [place], [place], [id number] , [place]. [phone] Office/Outpat ient Visit,[facility] Z [facility] [place], [address], [place], [address], [place] tel:[phone] [facility] [place] [facility] [place] Apr- 0-201 4 Abraham Denis. [facility] [place], [address] [place] [address], [address], [place], [place], [id number] , [place]. tel:[phone] Referring Provider: Dakota Holcomb, [address], [address] . tel:[phone] Family History Family Member Type Diagnosis Age At Onset No Information Payers Payer name Insurance type Covered alliance party ID Authoriza tion(s) No Information Social History Type Description Quantity Date Captured Comments Sex Male Smoking Status No Information Chief Complaint And Reason For Visit No Information Reason For Referral Reason For Referral No Information History Of Present Illness Encounter Date Complaint History Of Prese nt Illness No Information Functional Status Date Functional Assessmen t No Information Instructions Date Instruction Additional Infor mation No Information Assessments Type Assessment Date No Information Patient Care Teams Name Effective Dates (start - stop) Status Members No Information
[2023-11-01 23:24] VITALS: BP 143/82; PULSE 75; RESP 16; TEMP 36.2; O2SAT 100; BMI 28.7
--- NOTE | 2023-11-02 00:22 | ED.FALL ---
HPI - Fall General Time Seen by Provider: 00:22 Date Seen: 11/02/23 Chief Complaint: Fall/Minor Trauma Stated Complaint: fall, bruised ribs and injured hand Time Seen by Provider: 11/02/23 00:16 Source: patient, RN notes reviewed and old records reviewed Mode of arrival: ambulatory Limitations: no limitations History of Present Illness HPI Narrative: 87-year-old male who comes in today with a fall. Patient slipped and fell against a counter edge at home, complains of pain of his left ribs as well as right hand. Patient is anticoagulated for heart valve replacement. He denies head injury loss of consciousness. Said he did not have any chest pain, lightheadedness prior to was fall. Has been ambulatory since, has not taken anything for his pain. Scheduled to have INR checked tomorrow and says it has ?been bouncing around. ? Related Data Home Medications Medication Instructions Recorded Confirmed atorvastatin 20 mg tablet 20 mg PO HS 12/23/21 01/25/23 celecoxib 200 mg capsule 200 mg PO DAILY 12/23/21 01/25/23 cholecalciferol (vitamin D3) 50 50 mcg PO DAILY 12/23/21 01/25/23 mcg (2,000 unit) capsule (Vitamin D3) warfarin 5 mg tablet 5 mg PO DAILY 12/23/21 01/25/23 Previous Rx's Medication Instructions Recorded lidocaine 5 % topical patch 1 patch topical DAILY #15 ea 11/02/23 (Lidoderm) Allergies Allergy/AdvReac Type Severity Reaction Status Date / Time indomethacin Allergy Intermediate Bleeding Verified 01/26/23 10:00 Sulfa (Sulfonamide Allergy Intermediate Hives Verified 01/26/23 10:00 Antibiotics) Review of Systems Status of ROS: Reports: 10 or more systems reviewed and unremarkable except as noted in History and below [facility] Medical History Osteoarthritis of right knee ?M17.11 - Unilateral primary osteoarthritis, right knee (ICD-10) SHASTA (obstructive sleep apnea) ?G47.33 - Obstructive sleep apnea (adult) (pediatric) (ICD-10) Congestive heart failure (CHF) ?I50.9 - Heart failure, unspecified (ICD-10) Hyperlipemia ?E78.5 - Hyperlipidemia, unspecified (ICD-10) Arthritis ?M19.90 - Unspecified osteoarthritis, unspecified site (ICD-10) Surgical History Hx of tonsillectomy ?Z90.89 - Acquired absence of other organs (ICD-10) H/O vasectomy ?Z98.52 - Vasectomy status (ICD-10) 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) ?Z96.652 - Presence of left artificial knee joint (ICD-10) 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) ?M43.27 - Fusion of spine, lumbosacral region (ICD-10) H/O mitral valve replacement ?Z95.2 - Presence of prosthetic heart valve (ICD-10) Social History Smoking Status: Never smoker Second hand tobacco smoke exposure: No How often do you have a drink containing alcohol: never How often do you have six or more drinks on one occasion: Never AUDIT-C Alcohol total score: 0 Non-prescribed substance use: denies use service: No Exam Narrative: Exam Narrative: General: Well-developed and well-nourished, no acute distress Head: Atraumatic and normocephalic Eyes: Pupils are equal reactive, extraocular motions intact, conjunctiva clear ENT: External nose and ears are normal, posterior pharynx without erythema or exudate Neck: No midline cervical tenderness, full spontaneous range of motion the neck, trachea midline, no adenopathy Heart: Regular rate and rhythm no murmurs or thrills Lungs: Clear to auscultation bilaterally without wheezes or crackles. Mild swelling with early bruising of the left posterior lateral chest wall Abdomen: Soft, nontender, nondistended with active bowel sounds Musculoskeletal: No tenderness, deformity, or edema Neurologic: Awake, alert, and oriented x3, no gross focal neurologic deficits, cranial nerves intact as tested Psych: Mood and affect are appropriate Skin: 2 x 3 cm area of bruising on the dorsum of the right hand in the 1st webspace, no deformity, no bony tenderness Const: Vital Signs, click to edit/add: Vital Signs - 24 hr 11/01/23 23:24 11/02/23 01:40 Temperature 97.1 F L Pulse Rate [Left P ulse Oximeter] 75 61 Respiratory Rate 16 18 Blood Pressure [Ri ght Upper Arm] 143/82 H 132/83 Pulse Oximetry 100 96 Oxygen Delivery Me thod Room Air Room Air Course Course ED Course: Patient seen and examined, reviewed most recent ER visit from October 2022 when patient was seen with a headache, treated in the department with negative evaluation and released. Patient is currently anticoagulated with Coumadin due to history of valve replacement. Patient presents today after trip and fall at home. He complains of left flank pain and has some tenderness of the posterior lateral and lateral ribs with some swelling and early bruising in this area, x-ray ordered to evaluate for rib fracture or underlying lung injury. Patient has no hemoptysis or shortness of breath. Has not had INR checked recently and sounds like has been somewhat labile, INR will be checked here in head CT ordered as well. Reevaluation(s) Time of Reevaluation #1: 01:07 Reevaluation #1: Chest x-ray ordered and independently interpreted by me with left lateral 9th rib fracture, no hemothorax or pneumothorax, there is a wedge-shaped density on the AP view but this is not seen on any other views and likely represents overlying soft tissue. CT scan of the head independently interpreted by me does not demonstrate any acute findings. Patient is stable for discharge, should contact his primary care clinic as we are checking his INR today and he scheduled for recheck in the morning Time of Reevaluation #2: 01:34 Reevaluation #2: Reviewed radiology interpretation of CT and chest x-ray, question of 10th rib fracture that I identified. Patient will be discharged with prescription for oxycodone as needed for pain was well as Lidoderm patch, Tylenol of pain is not too bad. Time of Reevaluation #3: 01:44 Reevaluation #3: Updated patient and family on diagnosis and plan. Labs independently interpreted by me with INR 3.05. Patient stable for discharge. Vital Signs Vital signs: Initial Vital Signs Temperature 97.1 F L 11/01/23 23:24 Temperature Source Temporal Artery Scan 11/01/23 23:24 Pulse Rate 75 11/01/23 23:24 Pulse Rhythm Regular 11/01/23 23:24 Respiratory Rate 16 11/01/23 23:24 Blood Pressure 143/82 H 11/01/23 23:24 Blood Pressure Mean 102 11/01/23 23:24 Blood Pressure Position Sitting 11/01/23 23:24 Pulse Oximetry 100 11/01/23 23:24 Oxygen Delivery Method Room Air 11/01/23 23:24 Vital Signs Temperature 97.1 F L 11/01/23 23:24 Pulse Rate 75 11/01/23 23:24 Respiratory Rate 16 11/01/23 23:24 Blood Pressure 143/82 H 11/01/23 23:24 Pulse Oximetry 100 11/01/23 23:24 Oxygen Delivery Method Room Air 11/01/23 23:24 Temperature 97.1 F L 11/01/23 23:24 Pulse Rate 61 11/02/23 01:40 Respiratory Rate 18 11/02/23 01:40 Blood Pressure 132/83 11/02/23 01:40 Pulse Oximetry 96 11/02/23 01:40 Oxygen Delivery Method Room Air 11/02/23 01:40 Medications Administered Medications: Generic Name Dose Route Start Last Admin Trade Name Abdifatahq PRN Reason Stop Dose Admin Acetaminophen 650 mg 11/02/23 00:31 11/02/23 01:05 Acetaminophen 325 Mg Tablet PO 11/02/23 00:32 650 mg ONCE ONE Administration Lidocaine 1 patch 11/02/23 01:16 11/02/23 01:38 Lidocaine 5% Patch TRANSDERMA 11/02/23 01:17 1 patch ONCE ONE Administration Protocol MDM - Fall Lab Data Labs: Lab Results 11/02/23 Range/Units 01:05 INR 3.05 H (0.91-1.10) Discharge Plan Discharge Clinical Impression: Chest wall contusion, Anticoagulated on Coumadin, Contusion of hand, right, Left rib fracture Patient Disposition: Home w/ Parent or Adult Condition: Stable Instructions: Rib Fracture (ED), Contusion in Adults (ED), Blood Thinners (ED) Additional Instructions: Take Tylenol as needed for pain, apply Lidoderm patch as well. Take oxycodone as needed for more severe pain. Follow-up with your primary care doctor this week. Activity Level: No Restrictions Discharge Diet: Regular Prescriptions: New lidocaine [Lidoderm] 5 % adhesive patch,medicated 1 patch topical DAILY Qty: 15 0RF Rx Instructions: leave on most painful area for up to 12 hrs No Action atorvastatin 20 mg tablet 20 mg PO HS Patient Comments: TAKE 1 TABLET BY MOUTH EVERY DAY warfarin 5 mg tablet 5 mg PO DAILY Patient Comments: TAKE HALF TABLET (2.5 MG) BY MOUTH EVERY MONDAY. TAKE 1 TABLET (5 MG) ALL OTHER DAYS OR DIRECTED cholecalciferol (vitamin D3) [Vitamin D3] 50 mcg (2,000 unit) capsule 50 mcg PO DAILY celecoxib 200 mg capsule 200 mg PO DAILY Patient Comments: TAKE 1 CAPSULE BY MOUTH ONCE DAILY WITH A MEAL. Follow Up/Referrals: Jack Smith MD [Primary Care Provider] - Stand Alone Forms: [employer] Info Instructions
--- NOTE | 2023-11-02 00:31 | CT_ITS ---
Patient: PROSPER CANDELARIO Facility:?[facility] Patient ID:?[id number] Site Patient ID:?[id number]. Site :?[id number] Study:?CT-Head W/O-11/02/2023 1:08:47 AM Ordering Physician:LILLIANA Final Report: INDICATION: Fall on Coumadin. TECHNIQUE: CT head without contrast. COMPARISON: CT head 10/05/2022. FINDINGS: Brain parenchyma, CSF spaces, and extra-axial spaces: Mild global brain parenchymal volume loss. Areas of mild hypoattenuation within the bilateral periventricular and subcortical white matter, consistent with chronic small vessel ischemic disease. 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 The sales-white differentiation is normal. No sign of mass, hemorrhage, or midline shift. Unchanged configuration of the ventricles with mild dilatation of the lateral ventricles and 3rd ventricle. No extra-axial fluid collection. Skull base and calvarium: The visualized paranasal sinuses demonstrate no acute or significant findings. The mastoid air cells are clear. The visualized orbits are grossly unremarkable. No skull fractures. 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 Atherosclerotic calcification of the bilateral carotid siphons and V4 segments of the vertebral arteries. IMPRESSION: No evidence of an acute intracranial abnormality. No significant interval change compared to the prior exam. Please note that all CT scans at this facility use dose modulation, iterative reconstruction, and/or weight-based dosing when appropriate to reduce radiation dose to as low as reasonably achievable. Dictated by Jimmie Barkley MD @ 11/02/2023 1:25:51 AM Signed by:?Jimmie Barkley MD @11/02/2023 1:25:51 AM (Electronic Signature)
--- NOTE | 2023-11-02 00:31 | XR_ITS ---
Patient: PROSPER CANDELARIO Facility:?[facility] Patient ID:?[id number] Site Patient ID:?[id number]. Site :?[id number] Study:?XRay-Chest W/ LT RIBS-11/02/2023 1:10:28 AM Ordering Physician:LILLIANA Final Report: INDICATION: Fall, left posterior rib pain. TECHNIQUE: Left rib series five views COMPARISON: None. FINDINGS: Cardiovascular and mediastinum: Mild cardiomegaly. Two lead left chest cardiac device. Previous median sternotomy with mitral valve prosthesis. Atherosclerotic thoracic aorta. Lungs and pleural spaces: Bibasilar atelectasis. No pleural effusion. No pneumothorax. Bones and soft tissues: Acute, mildly displaced left lateral 9th, and possibly 10th, rib fracture. Partially imaged lumbar fusion postsurgical changes. Otherwise, unremarkable for age. IMPRESSION: Acute, mildly displaced left lateral 9th, and possibly 10th, rib fracture. No pneumothorax. Dictated by Jimmie Barkley MD @ 11/02/2023 1:30:32 AM Signed by:?Jimmie Barkley MD @11/02/2023 1:30:32 AM (Electronic Signature)
--- OUTSIDE RECORDS SUMMARY | 2023-11-02 00:42 | XMS_ITS | Clinical Summary ---
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 Overview: CT emergency room Wall with more prominent enlarged right ventricle - [...] Health Care Agent(s): Primary Health Care Agent: Dinaa Vallejo Relationship: Spouse , c-[phone] Secondary Health Care Agent: Alexander Vallejo Relationship: [...] Description 10/30/2023 8:40 AM CDT Office Visit [facility] [place] [address] [address] Jack Smith MD Follow Up (Intertrigo has improved per patient report) 10/30/2023 Travel 10/20/2023 Anticoagulation (warfarin) [facility] [place] [address] [address] 1, [facility] Anticoagulation 10/19/2023 11:30 AM CDT Orders Only [facility] [place] [address] [address] Lab, [place] [facility] 10/19/2023 Travel 10/16/2023 Orders Only [facility] Scanner 1 scan: (1-Ord) INCOMING RECORDS-LABS, [facility], 10/16/2023 10/13/2023 10:00 AM CDT Office Visit [facility] [address] [place] [address] Vin Faustin MD Teleheart, [facility] (Mitral valve replacement) 10/13/2023 Travel 10/10/2023 Orders Only [facility] Scanner 1 scan: (1-Ord) INCOMING RECORDS-[facility], 10/10/2023 10/09/2023 7:25 AM CDT Office Visit [facility] [place] [address] [address] Jack Smith MD Medication Management 10/09/2023 Travel 10/05/2023 11:00 AM CDT Orders Only [facility] [place] [address] [address] [address] Lab, [place] [facility] 10/05/2023 Anticoagulation (warfarin) [facility] [address] [place] [address] 1, [facility] Anticoagulation 10/05/2023 Travel 10/02/2023 Telephone [facility] [id number] [place] [phone] Hazel Marinelli, RON Device Check (Pacemaker alert transmission for AF) 09/26/2023 Refill [facility] [address] [facility] [address] Brennon Biggs, Refill Request (Clotrimazole-betamet hasone Cream) 09/26/2023 Travel 09/25/2023 Telephone [facility] [address] [place] [address] Jack Smith MD Anticoagulation 09/24/2023 Travel 09/21/2023 9:50 AM CDT Orders Only [address] [address] Lab, [place] [facility] 09/21/[address] [address] Makenzie Jon, RON Results 09/21/2023 Anticoagulation (warfarin) [facility] [address] [place] [address] 1, [facility] Anticoagulation 09/21/2023 Travel 09/14/2023 Anticoagulation (warfarin) [facility] [address] [place] [address] 1, [facility] Anticoagulation 09/13/2023 1:30 PM CDT Orders Only [facility] [address] [place] [address] Lab[place] [facility] 09/13/2023 Travel 09/08/2023 9:00 AM CDT Orders Only [facility] [address] [facility] [place] [address] Lab, [place] [facility] 09/08/2023 Telephone [facility] [address] [place] [address] 1, [facility] Anticoagulation (Supra Therapeutic INR ) 09/08/2023 Anticoagulation (warfarin) [facility] [address] [place] [address] 1, [facility] Anticoagulation (Lab ) 09/08/2023 Travel 08/29/2023 Refill [facility] [address] [place] [address] Jack Smith MD Refill Request (Warfarin) 08/25/2023 11:15 AM SWIMMING POOL ATTENDANT Orders Only [facility] [address] [place] [address] Lab, [place] [facility] 08/25/2023 Anticoagulation (warfarin) [facility] [address] [place] [address] 1, [facility] Anticoagulation (Lab ) 08/25/2023 Travel 08/11/2023 1:30 PM SWIMMING POOL ATTENDANT Orders Only [facility] [address] [place] [address] Lab[facility] [place] [facility] 08/11/2023 Telephone [facility] [address] [place] [address] Jack Smith MD Anticoagulation (Dosing ) 08/11/2023 Anticoagulation (warfarin) [facility] [address] [place] [address] 1, [facility] Anticoagulation 08/11/2023 Travel 08/04/2023 11:20 AM SWIMMING POOL ATTENDANT Orders Only [address] [address] Lab, [place] 08/04/2023 Anticoagulation (warfarin) [facility] [address] [place] [address] 1, [facility] Anticoagulation 08/04/2023 Travel from Last 3 Months Immunizations Name Administration Dates Next Due AMB INFLUENZA IIV3 (AGE 65+ YRS) PF (Flu Clinic Only) 04/24/2018 AMB Influenza, IIV3 (Age >=3 years)(Flu Clinic Only) 04/16/2013,04/03/2012,05/04/2010 COVID-19 Vaccine Spikevax (M oderna 50mcg/0.5mL) 12YO+ [id number] Formula PF 10/30/2023,05/08/2023 COVID-19 vaccine (AppbistroBio NTech 30mcg/0.3mL) 12YO+ BIVALENT PF, MDV 04/04/2022 COVID-19 vaccine (AppbistroBio NTech 30mcg/0.3mL) 12YO+ CARLITOS-SUCROSE PF, MDV 09/17/2021 COVID-19 vaccine (AppbistroBio NTech 30mcg/0.3mL) PF, MDV 04/26/2021,08/20/2020,07/30/2020 Influenza, High-dose [...] T Respiratory Rate 18 07/08/2023 8:41 AM SWIMMING POOL ATTENDANT Oxygen Saturation 97% 10/30/2023 8:51 AM CDT Inhaled Oxygen Concentration - - Weight 91.2 kg (201 lb) 10/30/2023 8:51 AM CDT Height 177.8 cm (5' 10) 07/07/2023 11:55 AM SWIMMING POOL ATTENDANT Body Mass Index 28.84 07/07/2023 11:55 AM SWIMMING POOL ATTENDANT Plan of Treatment Upcoming Encounters Date Type Department Care Team (Late st Contact Info) Description 11/02/2023 9:45 AM CDT Orders Only [facility] [address] [place] [address] Lab, [place] 11/28/2023 8:30 AM CDT Cardiac Device Check [facility] [place] [facility] [address] [place] [address] 01/30/2024 Cardiac Device Check [facility] [phone] Health Maintenance Due Date Last Done Comments [...] 05/26/2021, 08/06/2010 Medical Devices Implanted Type Area Meteorology Instructor Device Identifier Shelf Expiration Date Model / Serial / Lot Bone Matrix 10cc Vitoss Foam Ba2x Synth - [id number] Implanted:Qty : 1 on 04/15/2014 by Kunal Gerard MD at [facility] Right: Lumbar Vertebrae Edward Spine 08/17/[id number]# / / [id number] Screw Lmbr Post [id number] Cnnltd - [id number] Implanted:Qty : 1 on 04/15/2014 by Kunal Gerard MD at [facility] Right: Lumbar Vertebrae Medtronic Spine/Ortho [id number]# / / Description:7.5 * 45 mm sext ant screw Screw Lmbr Post 7.7a45faor Cnnltd - [id number] Implanted:Qty : 2 on 04/15/2014 by Kunal Gerard MD at [facility] Right: Lumbar Vertebrae Medtronic Spine/Ortho [id number]# / / [id number] - [id number] Implanted:Qty : 1 on 04/15/2014 by Kunal Gerard MD at [facility] Right: Lumbar Vertebrae Medtronic 11/07/2019 [id number] / / [id number] Description:Capstone control spinal system interbody fusion device (15 mm * 27 mm * 6 degrees) Chris 40mm Titnm Sextant - [id number] Implanted:Qty : 1 on 04/15/2014 by Kunal Gerard MD at [facility] Right: Lumbar Vertebrae Medtronic Spine/Ortho [id number]# / / Screw Lmbr Post 7.7x57jhat Fa Cnnltd - [id number] Implanted:Qty : 1 on 04/15/2014 by Kunal Gerard MD at [facility] Right: Lumbar Vertebrae Medtronic Spine/Ortho [id number]# / / Chris 35mm Titnm Sextant - [id number] Implanted:Qty : 1 on 04/15/2014 by Kunal Gerard MD at [facility] Right: Lumbar Vertebrae Medtronic Spine/Ortho [id number]# / / Set Screw Lmbr Antltd - [id number] Implanted:Qty : 4 on 04/15/2014 by Kunal Gerard MD at [facility] Right: Lumbar Vertebrae Medtronic Spine/Ortho [id number]# / / Explanted Type Area Meteorology Instructor Device Identifier Shelf Expiration Date Model / Serial / Lot Rinku - [id number] Explanted:Qty: 1 on 04/15/2014 by Kunal Gerard MD at [facility] Right: Spine Medtronic Spine/Ortho 02/21/2019 [id number]# / / [id number] Procedures Procedure Name Priority Date/Time Associated Diagnosis [...] mechanical valve INR,POCT Routine 08/25/2023 1:01 PM SWIMMING POOL ATTENDANT Anticoagulation monitoring, INR range 2.5-3.5 History of mitral valve replacement with mechanical valve INR,POCT Routine 08/11/2023 1:51 PM SWIMMING POOL ATTENDANT Anticoagulation monitoring, INR range 2.5-3.5 History of mitral valve replacement with mechanical valve PROTIME-INR STAT 08/04/2023 11:34 AM SWIMMING POOL ATTENDANT Anticoagulation monitoring, INR range 2.5-3.5 History of mitral valve replacement with mechanical valve from Last 3 Months Results * (ABNORMAL) PROTIME-INR (10/19/2023 12:09 PM CDT) Only the most recent of5 resultswithin the time period is included. INR 3.5(H) <1.3 10/19/2023 9:32 PM CDT [facility] PROTIME 37.4(H) 10.3 - 12.3 sec 10/19/2023 9:32 PM CDT [facility] Blood BLOOD SPECIMEN / Unknown Venipuncture / Unknown 10/19/2023 12:09 PM CDT 10/19/2023 12:09 PM CDT Narrative [facility] - 10/19/2023 9:32 PM CDT ?Therapeutic [...] Jack Smith MD HEMATOLOGY Performing Organization Address [facility] Co de Phone Number [facility] [address] [place] [address], * SCAN CORRESP-LABORATORY RESULTS (10/16/2023 12:00 AM CDT) Only the most recent of2 resultswithin the time period is included. Scanner OTHER * (ABNORMAL) INR,POCT (10/05/2023 11:06 AM CDT) Only the most recent of3 resultswithin the time period is included. INR 3.7(H) <1.3 10/05/2023 11:10 AM CDT [facility] Blood BLOOD SPECIMEN / Unknown 10/05/2023 11:06 AM CDT 10/05/2023 11:10 AM CDT Narrative [facility] - 10/05/2023 11:10 AM CDT ?Therapeutic Range 2.0-3.0 for most anticoagulated patients 2.5-3.5 or 4.0 for high risk patients Jack Smith MD LABORATORY Performing Organization Address [facility] de Phone Number [facility] [address] [place] [address], [place] [phone] from Last 3 Months Advance Directives Documents on File Type Date Recorded Patient Inspector Multifocal Lens Expl anation Healthcare Directive 06/23/2021 022 * [...] 11:29 AM 04/18/2014 5:44 PM Care Teams Patent Examiner Relationship Specialty Start Date End Date Jack Smith [place] [address] PCP - General Family Practice 10/08/13 Randy Roberts MD Surgery - Orthopedics 08/12/11 Rocky Borrero [address] [place] [address] Mineral Surveyor 08/12/[address], [place] [address] 02/06/23
--- OUTSIDE RECORDS SUMMARY | 2023-11-02 00:42 | XMS_ITS | Continuity of Care Document ---
Author Name Unknown Organization [facility] Address [address] [place] [address] Phone Care Team Providers Care Area Forester Name Role Phone Denis Abraham MD Unavailable [...] Available - Active Procedures Procedure Date Office/Outpatient Visit,[facility] 2013 X-Ray Exam Lwr Spine, Min 4 Views Advance Directives Directive Yes / No Effective Date File Name No Information Encounters Encounter Description Practice Location Reason(s) For Visit Diagnoses Date Provider Providers Copied on Encounter [facility], [address], [place], [place], [id number], [place] tel:[phone] [facility] No Information 2-201 5 Abraham Denis. [facility] [place], [address] [place] [address], [address], [place], [place], [id number] , [place]. [phone] Office/Outpat ient Visit,[facility] Z [facility], [address], [place], [address], [place] tel:[phone] [facility] [place] Apr- 0-201 4 Abraham Denis. [facility] [place], [address] [place] [address], [address], [place], [place], [id number] , [place]. tel:[phone] Referring Provider: Dakota Holcomb, [address], [address] . tel:[phone] Family History Family Member Type Diagnosis Age At Onset No Information Payers Payer name Insurance type Covered republican ID Authoriza tion(s) No Information Social History [...]
--- OUTSIDE RECORDS SUMMARY | 2023-11-02 00:43 | XMS_ITS | Continuity of Care Document ---
Author Name Unknown Organization [facility] Address [address] [place] [address] Phone Care Team Providers Care Nitroglycerin Nitrator Operator Batch Name Role Phone Denis Abraham MD Unavailable [...] Available - Active Procedures Procedure Date Office/Outpatient Visit,[facility] 2013 X-Ray Exam Lwr Spine, Min 4 Views Advance Directives Directive Yes / No Effective Date File Name No Information Encounters Encounter Description Practice Location Reason(s) For Visit Diagnoses Date Provider Providers Copied on Encounter [facility], [address], [place], [place], [id number], [place] tel:[phone] [facility] No Information 2-201 5 Abraham Denis. [facility], [address] [place] [address], [address], [place], [place], [id number] , [place]. [phone] Office/Outpat ient Visit,[facility], [address], [place], [address], [place] tel:[phone] [facility] [place] [facility] [place] Apr- 0-201 4 Abraham Denis. [facility], [address] [place] [address], [address], [place], [place], [id number] , [place]. tel:[phone] Referring Provider: Dakota Holcomb, [address], [address] . tel:[phone] Family History Family Member Type Diagnosis Age [...]
[2023-11-02] MEDS: ACETAMINOPHEN 325 MG TABLET 650 MG PO (01:05)
[2023-11-02 01:30] LABS: INR 3.05 (0.91-1.10); Prothrombin Time 33.9 Seconds
[2023-11-02] MEDS: LIDOCAINE 5% PATCH 1 PATCH TRANSDERMA (01:38)
[2023-11-02 01:40] VITALS: BP 132/83; PULSE 61; RESP 18; O2SAT 96
== END 2023-11-02 01:57 | disposition home or self-care (01) ==
PROVIDERS: Emergency Provider Family Medicine; PCP Surgery
DX: S22.32XA Fracture of one rib, left side, initial encounter for closed fracture (principal); W01.190A Fall on same level from slipping, tripping and stumbling with subsequent striking against furniture, initial encounter
CPT/HCPCS: 36415; 70450; 71101; 85610; 99284; A9270

== ENCOUNTER 2023-11-13 12:24 | Emergency (ER) | payer MEDICARE, OTHER, SELFPAY ==
[2023-11-13 12:28] VITALS: BP 131/77; PULSE 70; RESP 16; TEMP 36.8; O2SAT 99; BMI 28.7
--- NOTE | 2023-11-13 12:44 | CRLHL7_ITS ---
For Patients: As a result of the Century Cures Act, medical imaging exams and procedure reports are released immediately into your electronic medical record. You may view this report before your referring provider. If you have questions, please contact your health care provider. Indication: Trauma, left-sided rib fracture Technique: Volumetric multidetector CT images of the chest were obtained after the administration of IV contrast. 75 cc Isovue 370 low osmolar intravenous contrast Comparison: None available. Findings: The thoracic inlet and thyroid gland are unremarkable. The thoracic aorta is nonaneurysmal. There is no central filling defect to suggest pulmonary embolism. There is no mediastinal, hilar or axillary adenopathy. There is mild central bronchial thickening. There is loculated left basilar pleural effusion with adjacent compressive atelectasis. There is no pneumothorax. There is no evidence of pulmonary mass or suspicious pulmonary nodule. Demonstration of mildly comminuted fractures of the posterior aspects of the 9th, 10th, 11th and 12th ribs with additional lateral fracture of the 9th rib. There is an associated intramuscular hematoma within the medial left paraspinous muscles. This measures up to 4.5 x 3.9 centimeters. The thoracic vertebral body heights are grossly maintained with endplate Schmorl`s defects. There is no significant spondylolisthesis or displaced fracture. There are flowing anterior osteophytes. Impression: Comminuted fractures of the posterior 9th, 10th, 11th, and 12th ribs with associated intramuscular hematoma within the inferior medial paraspinous muscles measuring up to 4.5 centimeters. Loculated left basilar pleural effusion is appreciated with adjacent compressive atelectasis. Please note that all CT scans at this facility use dose modulation, iterative reconstruction, and/or weight-based dosing when appropriate to reduce radiation dose to as low as reasonably achievable. Dictated by Ankit Zuniga MD @ 11/13/2023 2:15:00 PM (Electronically Signed)
--- NOTE | 2023-11-13 12:46 | ED_ITS ---
HPI - General Adult General Date Seen: 11/13/23 Chief complaint: Unspecified Complaint, Adult Stated complaint: LT sided pain after fall 1wk ago Time Seen by Provider: 11/13/23 12:28 Source: patient and family Mode of arrival: ambulatory Limitations: no limitations History of Present Illness HPI narrative: Patient is an 87-year-old male here with his son for evaluation of continued pain after a rib fracture about 11 days ago. He says he stumbled, hit his left side on the edge of a counter top. He was seen here, had x-rays which showed a likely fracture of the 10th rib. He says he had been doing okay for the 1st few days but over the past couple of days has been having more pain in that area. He has not had abdominal pain. Does note a little bit of constipation related to the oxycodone. No vomiting. Denies shortness of breat. It does hurt to take a deep breath. No fevers or cough. No hematuria. He has extensive bruising now over the left side. INR was checked on the and was 3.0, patient notes that his desired ranges between 2 and half and 3 and half. He has continued to use Tylenol and occasional oxycodone for pain. He lives independently, his son is with him here today. Related Data Home Medications ?Medication ?Instructions ?Recorded ?Confirmed atorvastatin 20 mg tablet 20 mg PO HS 12/23/21 11/13/23 celecoxib 200 mg capsule 200 mg PO DAILY 12/23/21 11/13/23 cholecalciferol (vitamin D3) 50 50 mcg PO DAILY 12/23/21 01/25/23 mcg (2,000 unit) capsule (Vitamin D3) warfarin 5 mg tablet 5 mg PO DAILY 12/23/21 11/13/23 oxycodone 5 mg tablet 5 mg PO Q6H PRN pain 11/13/23 11/13/23 Previous Rx's ?Medication ?Instructions ?Recorded lidocaine 5 % topical patch 1 patch topical DAILY #15 ea 11/02/23 (Lidoderm) Allergies Allergy/AdvReac Type Severity Reaction Status Date / Time indomethacin Allergy Intermediate Bleeding Verified 01/26/23 10:00 Sulfa (Sulfonamide Allergy Intermediate Hives Verified 01/26/23 10:00 Antibiotics) Review of Systems Status of ROS: Reports: 10 or more systems reviewed and unremarkable except as noted in History and below PFSH PFSH Medical History Osteoarthritis of right knee ?M17.11 - Unilateral primary osteoarthritis, right knee (ICD-10) SHASTA (obstructive sleep apnea) ?G47.33 - Obstructive sleep apnea (adult) (pediatric) (ICD-10) Congestive heart failure (CHF) ?I50.9 - Heart failure, unspecified (ICD-10) Hyperlipemia ?E78.5 - Hyperlipidemia, unspecified (ICD-10) Arthritis ?M19.90 - Unspecified osteoarthritis, unspecified site (ICD-10) Surgical History Hx of tonsillectomy ?Z90.89 - Acquired absence of other organs (ICD-10) H/O vasectomy ?Z98.52 - Vasectomy status (ICD-10) 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 In general, an alert, nontoxic elderly male. Looks comfortable, breathing easily. Head: Normocephalic, atraumatic. Eyes: Pupils are equal reactive. Extraocular movements are full. Conjunctivae are normal. ENT: Mucous membranes are moist Neck: Supple without lymphadenopathy. Heart: Regular rate and rhythm. No murmur or rub. Lungs: Clear bilaterally. No increased work of breathing, crackles or wheezes. Breath sounds slightly decreased at the left base. Back: He has some swelling over the posterior rib cage on the left, tenderness here. No crepitus or subcu air. He has extensive subcutaneous bruising over the left flank into the gluteal area. He does not have tenderness over the bruised areas with any significance. He has no midline spinal tenderness. Abdomen: Soft and nontender. Delete Neurologic: Patient is alert and oriented to person and place. Speech is fluent. Face is symmetric. Moves all extremities equally. Affect: Normal. Skin: Warm and dry. Well perfused. Const: Vital Signs, click to edit/add: Vital Signs - 24 hr 11/13/23 12:28 11/13/23 14:32 Temperature 98.3 F Pulse Rate [Pulse Oximeter] 70 78 Respiratory Rate 16 18 Blood Pressure [Ri ght Upper Arm] 131/77 120/77 Pulse Oximetry 99 95 Oxygen Delivery Me thod Room Air Room Air Documenting provider has reviewed patient's vital signs: yes Course Course ED Course: Records were reviewed. Patient declines anything for pain right now. With his age and anticoagulation, I think it is reasonable to do a CT scan to rule out other rib fractures, pneumothorax, hemothorax, etc. He does not have any abdominal tenderness or pain, my suspicion for intra-abdominal or retroperitoneal injuries is fairly low. Will recheck his INR, CBC to look at hemoglobin and do a CT scan with contrast for further evaluation. INR is somewhat supratherapeutic today at 4. Hemoglobin is 11, 13.4 when checked about a year and half ago. Metabolic panel is unremarkable. White blood cell count is normal at 9.8. CT scan by my review showed some fluid in the chest cavity, loculated, certainly could be hemo thorax. He does have posterior rib fractures on the left. Final radiology read as follows:Findings: The thoracic inlet and thyroid gland are unremarkable. The thoracic aorta is nonaneurysmal. There is no central filling defect to suggest pulmonary embolism. There is no mediastinal, hilar or axillary adenopathy. There is mild central bronchial thickening. There is loculated left basilar pleural effusion with adjacent compressive atelectasis. There is no pneumothorax. There is no evidence of pulmonary mass or suspicious pulmonary nodule. Demonstration of mildly comminuted fractures of the posterior aspects of the 9th, 10th, 11th and 12th ribs with additional lateral fracture of the 9th rib. There is an associated intramuscular hematoma within the medial left paraspinous muscles. This measures up to 4.5 x 3.9 centimeters. The thoracic vertebral body heights are grossly maintained with endplate Schmorl`s defects. There is no significant spondylolisthesis or displaced fracture. There are flowing anterior osteophytes. Impression: Comminuted fractures of the posterior 9th, 10th, 11th, and 12th ribs with associated intramuscular hematoma within the inferior medial paraspinous muscles measuring up to 4.5 centimeters. Loculated left basilar pleural effusion is appreciated with adjacent compressive atelectasis. Case discussed with Dr. Kwong, general surgery as well as Dr. Sanford at [facility]. Patient is a week and half after this injury, he actually seems to be doing quite well. We all agree that it is reasonable to send him home. I am going to have him hold his Coumadin for a couple of days, he can continue to use Tylenol as needed an oxycodone if needed for more significant pain. He should follow-up with his clinic this week, I think it would be reasonable to recheck a hemoglobin and make sure it is stable. If at any time me as new symptoms such as fever, significant uncontrolled pain, difficulty breathing, return to the emergency department. Vital Signs Vital signs: Initial Vital Signs Temperature 98.3 F 11/13/23 12:28 Temperature Source Temporal Artery Scan 11/13/23 12:28 Pulse Rate 70 11/13/23 12:28 Respiratory Rate 16 11/13/23 12:28 Blood Pressure 131/77 11/13/23 12:28 Blood Pressure Mean 95 11/13/23 12:28 Blood Pressure Position Sitting 11/13/23 12:28 Pulse Oximetry 99 11/13/23 12:28 Oxygen Delivery Method Room Air 11/13/23 12:28 Vital Signs Temperature 98.3 F 11/13/23 12:28 Pulse Rate 70 11/13/23 12:28 Respiratory Rate 16 11/13/23 12:28 Blood Pressure 131/77 11/13/23 12:28 Pulse Oximetry 99 11/13/23 12:28 Oxygen Delivery Method Room Air 11/13/23 12:28 Temperature 98.3 F 11/13/23 12:28 Pulse Rate 78 11/13/23 14:32 Respiratory Rate 18 11/13/23 14:32 Blood Pressure 120/77 11/13/23 14:32 Pulse Oximetry 95 11/13/23 14:32 Oxygen Delivery Method Room Air 11/13/23 14:32 Medications Administered Medications: Discontinued Medications Generic Name Dose Route Start Last Admin Trade Name Luiz PRN Reason Stop Dose Admin Sodium Chloride 500 mls @ 500 mls/hr 11/13/23 12:44 11/13/23 14:59 0.9 % Sodium Chloride 500 Ml IV 11/13/23 13:43 Infused .Q1H ONE Infusion Medical Decision Making Lab Data Labs: Lab Results 11/13/23 Range/Units 12:55 WBC 9.78 (4.50-11.00) K/uL RBC 3.62 L (4.30-5.90) m/uL Hgb 11.0 L (13.5-17.5) gm/dL Hct 33.8 L (37.0-53.0) % MCV 93 (80-100) fL MCH 30 (26-34) pg MCHC 33 (32-36) gm/dL RDW Coeff of [place] 13.8 (11.5-15.5) % Plt Count 185 (140-440) K/uL Neut % (Auto) 82.1 H (42.0-72.0) % Lymph % (Auto) 11.5 L (20-44) % [place] % (Auto) 5.4 (0.0-11.0) % Eos % (Auto) 0.7 (0.0-7.0) % Baso % (Auto) 0.1 (0.0-3.0) % Neut # (Auto) 8.00 H (1.7-7.0) K/uL Lymph # (Auto) 1.10 (0.90-2.90) K/uL [place] # (Auto) 0.50 (0.00-0.90) K/UL Eos # (Auto) 0.07 (0.00-0.50) K/uL Baso # (Auto) 0.01 (0.00-0.30) K/uL Abs Immat Gran (auto) 0.02 (0.00-0.30) K/uL Imm/Tot Granulo (auto) 0.2 % INR 4.14 H (0.91-1.10) Sodium 137 (135-149) mmol/L Potassium 3.8 (3.6-5.1) mmol/L Chloride 106 (96-114) mmol/L Carbon Dioxide 24 (20-32) mmol/L Anion Gap 7 (7-15) mEq/L BUN 33 H (7-30) mg/dL Creatinine 1.1 (0.5-1.5) mg/dL Estimated Creat Clear 50.69 Estimated GFR 66 ml/min Glucose 162 H (60-115) mg/dL Calcium 8.7 (8.4-10.6) mg/dL Discharge Plan Discharge Clinical Impression: Multiple closed fractures of ribs of left side Patient Disposition: Home w/ Parent or Adult Condition: Stable Instructions: Rib Fracture (ED) Additional Instructions: CT scan today shows multiple rib fractures and some bleeding in the muscles between the ribs. Your Coumadin level is slightly high, your INR was 4. Please hold your Coumadin for the next 2 days, follow-up in clinic for recheck INR and hemoglobin. You can continue to use oxycodone if needed. Otherwise, Tylenol, ice may be helpful as well. If you have new symptoms such as significant shortness of breath, fever, severe uncontrolled pain, return at any time to the emergency department. Prescriptions: No Action atorvastatin 20 mg tablet 20 mg PO HS Patient Comments: TAKE 1 TABLET BY MOUTH EVERY DAY warfarin 5 mg tablet 5 mg PO DAILY Patient Comments: TAKE HALF TABLET (2.5 MG) BY MOUTH EVERY MONDAY. TAKE 1 TABLET (5 MG) ALL OTHER DAYS OR DIRECTED cholecalciferol (vitamin D3) [Vitamin D3] 50 mcg (2,000 unit) capsule 50 mcg PO DAILY celecoxib 200 mg capsule 200 mg PO DAILY Patient Comments: TAKE 1 CAPSULE BY MOUTH ONCE DAILY WITH A MEAL. oxycodone 5 mg tablet 5 mg PO Q6H PRN (Reason: pain) lidocaine [Lidoderm] 5 % adhesive patch,medicated 1 patch topical DAILY Qty: 15 0RF Rx Instructions: leave on most painful area for up to 12 hrs Follow Up/Referrals: Jack Smith MD [Primary Care Provider] - Stand Alone Forms: adQ Info Instructions
[2023-11-13 13:03] LABS: Basophils Absolute Auto 0.01 K/uL (0.00-0.30); Basophils Percent Auto 0.1 % (0.0-3.0); Eosinophils Absolute Auto 0.07 K/uL (0.00-0.50); Eosinophils Percent Auto 0.7 % (0.0-7.0); Hematocrit 33.8 % (37.0-53.0); Immature Granulocytes Abs Auto 0.02 K/uL (0.00-0.30); Immature Granulocytes Pct Auto 0.2 %; Lymphocytes Percent Auto 11.5 % (20-44); Mean Corpuscular HGB Conc 33 gm/dL (32-36); Mean Corpuscular Hemoglobin 30 pg (26-34); Mean Corpuscular Volume 93 fL (80-100); Monocytes Percent Auto 5.4 % (0.0-11.0); Neutrophils Percent Auto 82.1 % (42.0-72.0); Platelet Count* 185 K/uL (140-440); RDW Coefficient of Variation % 13.8 % (11.5-15.5); Red Blood Count 3.62 m/uL (4.30-5.90); White Blood Count* 9.78 K/uL (4.50-11.00)
[2023-11-13 13:04] LABS: Slide Review Reflex No
--- OUTSIDE RECORDS SUMMARY | 2023-11-13 13:07 | XMS_ITS | Clinical Summary ---
Author Organization [facility] Address [place], [place] [address] Care Team Providers Care Honeycomb Decapper Name Role Phone Randy Roberts MD Unavailable Rocky Borrero Unavailable Jack Smith MD Primary Care Provider [phone] [facility], [place] Unavailable Allergies Active Allergy Reactions Criticality Noted Date Comments Indomethacin GI Bleeding Nsaids (Non-Steroidal Anti-Inflammatory Drug) Bleeding High 08/26/2022 Sulfa (Sulfonamide Antibiotics) *Unknown - Childhood Rxn 03/31/2014 Medications Medication Sig Dispensed Refills Start Date End Date Status cholecalciferol (VITAMIN D-3) 2,000 unit capsuleIndications:o steoporosis Take 1 capsule by mouth once daily. Indications: OSTEOPOROSIS 0 04/18/2014 Active amoxicillin (AMOXIL) 500 mg capsule TAKE 4 CAPSULES BY MOUTH 1 HOUR BEFORE DENTAL APPOINTMENT 1 03/02/2017 Active ascorbic acid, vitamin C, (VITAMIN C) 1,000 mg tablet Take 1 tablet by mouth once daily. 0 03/26/2020 Active BiPapIndications:SHASTA (obstructive sleep apnea) bPAP machine for home [...] months, Frequency of use: Daily 1 Each 04/24/2023 Active celecoxib (CELEBREX) 200 mg capsuleIndications:P rimary osteoarthritis of knee, unspecified laterality Take 1 Capsule (200 mg) by mouth once daily with a meal. 90 Capsule 3 05/08/2023 Active atorvastatin (LIPITOR) 20 mg tabletIndications:Hy perlipidemia, unspecified hyperlipidemia type Take 1 Tablet (20 mg) by mouth once daily. 90 Tablet 3 05/08/2023 Active mupirocin (BACTROBAN OINTMENT) ointment Apply topically to affected area(s) 2 times daily if needed (buttocks). Active acetaminophen (TYLENOL EXTRA STRGTH) 500 mg tabletIndications:S/ P placement of cardiac pacemaker Take 2 Tablets (1,000 mg) by mouth every 6 hours if needed for Pain (For mild pain.). Max acetaminophen dose: 4000mg in 24 hrs. 07/08/2023 Active warfarin (COUMADIN) 5 mg tabletIndications:An ticoagulation monitoring, INR range 2.5-3.5,History of mitral valve replacement with mechanical valve Take by mouth 2.5 mg (5 mg x 0.5) every Mon, Fri; 5 mg (5 mg x 1) all other days in the evening OR as directed 09/21/2023 Active clotrimazole (LOTRIMIN) 1 % creamIndications:Int ertrigo Apply topically to affected area(s) two times daily. 85 g 1 10/09/2023 Active oxyCODONE (ROXICODONE) 5 mg immediate release tabletIndications:Cl osed fracture of multiple ribs of left side with routine healing, subsequent encounter Take 1 Tablet (5 mg) by mouth every 6 hours if needed for Pain. 28 Tablet 11/07/2023 Active Active Problems Problem Noted Date Diagnosed Date Osteoarthritis of fingers of hands, bilateral Sinus node dysfunction 07/07/2023 Second degree Mobitz II AV block 07/07/2023 Syncope 07/07/2023 Normal pressure hydrocephalus 10/21/2022 Overview: CT emergency room [place] with more prominent enlarged right ventricle - [...] Care Agent: Diana Vallejo Relationship: Spouse , [phone] Secondary Health Care Agent: Alexander Vallejo Relationship: [...] Encounters Date Type Department Care Team Description 11/07/2023 10:05 AM CDT Office Visit [facility] [address] [place] [address] Jack Smith MD ER Follow up (Fall /Still sore /Cracked ribs) 11/07/2023 Orders Only [facility] Scanner 1 scan: (1-Ord) INCOMING RECORDS-CT, [facility] and [facility], 11/07/2023 11/07/2023 Orders Only [facility] Scanner 1 scan: (1-Ord) INCOMING RECORDS-LABS, [facility], 11/07/2023 11/07/2023 Travel 11/06/2023 Telephone [facility] [address] [facility] [place] [address] Jack Smith MD appointment 11/04/2023 Anticoagulation (warfarin) [facility] [address] [place] [address] 1, [facility] Anticoagulation 11/03/2023 Telephone [facility] [address] [place] [address] Jack Smith MD Medication Management 11/02/2023 Orders Only [facility] SERVICES Scanner 1 scan: (1-Ord) [place], CHEST, 11/02/2023 11/02/2023 Orders Only [facility] Scanner 1 scan: (1-Ord) [facility], CT HEAD/BRAIN WO CON, 11/02/2023 10/30/2023 8:40 AM CDT Office Visit [facility] [address] [place] [address] Jack Smith MD Follow Up (Intertrigo has improved per patient report) 10/30/2023 Travel 10/20/2023 Anticoagulation (warfarin) [facility] [address] [place] [address] 1, [facility] Anticoagulation 10/19/2023 11:30 AM CDT Orders Only [facility] [address] [place] [address] Lab, [place] [facility] 10/19/2023 Travel 10/16/2023 Orders Only [facility] SERVICES Scanner 1 scan: (1-Ord) INCOMING RECORDS-LABS, [facility], 10/16/2023 10/13/2023 10:00 AM CDT Office Visit [facility] [address] [place] [address] Vin Faustin MD Teleheart, [facility] Telehealth (Mitral valve replacement) 10/13/2023 Travel 10/10/2023 Orders Only [facility] Scanner 1 scan: (1-Ord) INCOMING RECORDS-LABS, [facility], 10/10/2023 10/09/2023 7:25 AM CDT Office Visit [facility] [address] [place] [address] Jack Smith MD Medication Management 10/09/2023 Travel 10/05/2023 11:00 AM CDT Orders Only [facility] [address] [facility] [place] [address] Lab, [place] [facility] 10/05/2023 Anticoagulation (warfarin) [facility] [address] [place] [address] 1, [facility] Anticoagulation 10/05/2023 Travel 10/02/2023 Telephone [facility] [address] [place] [address] Hazel Marinelli RN Device Check (Pacemaker alert transmission for AF) 09/26/2023 Refill [facility] [address] [place] [address] Brennon Biggs DO Refill Request (Clotrimazole-betamet hasone Cream) 09/26/2023 Travel 09/25/2023 Telephone [facility] [address] [place] [address] Jack Smith MD Anticoagulation 09/24/2023 Travel 09/21/2023 9:50 AM CDT Orders Only [facility] [address] [place] [address] Lab, [facility] 09/21/2023 Telephone [facility] [address] [facility] [place] [address] Makenzie Jon RN Results 09/21/2023 Anticoagulation (warfarin) [facility] [address] [place] [address] 1, [facility] Anticoagulation 09/21/2023 Travel 09/14/2023 Anticoagulation (warfarin) [facility] [address] [place] [address] 1, [facility] Anticoagulation 09/13/2023 1:30 PM CDT Orders Only [facility] [address] [place] [address] Lab, [place] [facility] 09/13/2023 Travel 09/08/2023 9:00 AM CDT Orders Only [facility] [address] [place] [address] Lab, [place] [facility] 09/08/2023 Telephone [facility] [address] [place] [address] 1, [facility] Anticoagulation (Supra Therapeutic INR ) 09/08/2023 Anticoagulation (warfarin) [facility] [address] [place] [address] 1, [facility] Anticoagulation (Lab ) 09/08/2023 Travel 08/29/2023 Refill [facility] [address] [place] [address] Jack Smith MD Refill Request (Warfarin) 08/25/2023 11:15 AM REHABILITATION TEAM LEAD Orders Only [facility] [address] [place] [address] Lab, [place] [facility] 08/25/2023 Anticoagulation (warfarin) [facility] [address] [place] [address] 1, [facility] Anticoagulation (Lab ) 08/25/2023 Travel from Last 3 Months Immunizations Name Administration Dates Next Due AMB INFLUENZA IIV3 (AGE 65+ YRS) PF (Flu Clinic Only) 04/24/2018 AMB Influenza, IIV3 (Age >=3 years)(Flu Clinic Only) 04/16/2013,04/03/2012,05/04/2010 COVID-19 Vaccine Spikevax (M oderna 50mcg/0.5mL) 12YO+ [id number] Formula PF 10/30/2023,05/08/2023 COVID-19 vaccine (Pfizer-Bio NTech 30mcg/0.3mL) 12YO+ BIVALENT PF, MDV 04/04/2022 COVID-19 vaccine (Pfizer-Bio NTech 30mcg/0.3mL) 12YO+ CARLITOS-SUCROSE PF, MDV 09/17/2021 COVID-19 vaccine (PlaceIQ-Bio NTech 30mcg/0.3mL) PF, MDV 04/26/2021,08/20/2020,07/30/2020 Influenza, High-dose [...] Sign Reading Time Taken Comments Blood Pressure 104/67 11/07/2023 10:11 AM CDT Pulse 82 11/07/2023 10:11 AM CDT Temperature 36.8 ??C (98.2 ??F) 07/08/2023 8:41 AM CS T Respiratory Rate 18 07/08/2023 8:41 AM REHABILITATION TEAM LEAD Oxygen Saturation 97% 11/07/2023 10:11 AM CDT Inhaled Oxygen Concentration - - Weight 93 kg (205 lb) 11/07/2023 10:11 AM CDT Height 177.8 cm (5' 10) 07/07/2023 11:55 AM REHABILITATION TEAM LEAD Body Mass Index 29.41 07/07/2023 11:55 AM REHABILITATION TEAM LEAD Plan of Treatment Upcoming Encounters Date Type Department Care Team (Late st Contact Info) Description 11/21/2023 9:30 AM CDT Orders Only [facility] [address] [place] [address] [place] 11/28/2023 8:30 AM CDT Cardiac Device Check [facility] [address] [place] [address] [address] 01/30/2024 Cardiac Device Check [facility] [phone] Health Maintenance Due Date Last Done Comments COVID-19 vaccine series (2022- season) 2023 10/30/2023, 05/08/2023, 04/04/2022, Additional history [...] 05/26/2021, 08/06/2010 Medical Devices Implanted Type Area Sow Manager Device Identifier Shelf Expiration Date Model / Serial / Lot Bone Matrix 10cc Vitoss Foam Ba2x Synth - [id number] Implanted:Qty : 1 on 04/15/2014 by Kunal Gerard MD at [facility] Right: Lumbar Vertebrae [employer] 08/17/[id number] / / [id number] Screw Lmbr Post 7.2x07wybg Cnnltd - [id number] Implanted:Qty : 1 on 04/15/2014 by Kunal Gerard MD at [facility] Right: Lumbar Vertebrae [employer] Sp[employer]Ortho [id number]# / / Description:7.5 * 45 mm sext ant screw Screw Lmbr Post 7.4z12axwe Cnnltd - [id number] Implanted:Qty : 2 on 04/15/2014 by Kunal Gerard MD at [facility] Right: Lumbar Vertebrae [employer] Spine/Ortho [id number]# / / [id number] - [id number] Implanted:Qty : 1 on 04/15/2014 by Kunal Gerard MD at [facility] Right: Lumbar Vertebrae Medtronic 11/07/2019 [id number] / / [id number] Description:Capstone control spinal system interbody fusion device (15 mm * 27 mm * 6 degrees) Chris 40mm Titnm Sextant - [id number] Implanted:Qty : 1 on 04/15/2014 by Kunal Gerard MD at [facility] Right: Lumbar Vertebrae Medtronic Spine/Ortho [id number]# / / Screw Lmbr Post 7.1e13owve Fa Cnnltd - [id number] Implanted:Qty : 1 on 04/15/2014 by Kunal Gerard MD at [facility] Right: Lumbar Vertebrae Medtronic Spine/Ortho [id number]# / / Chris 35mm Titnm Sextant - [id number] Implanted:Qty : 1 on 04/15/2014 by Kunal Gerard MD at [facility] Right: Lumbar Vertebrae Medtronic Spine/Ortho [id number]# / / Set Screw Lmbr Antltd - [id number] Implanted:Qty : 4 on 04/15/2014 by Kunal Gerard MD at [facility] Right: Lumbar Vertebrae Medtronic Spine/Ortho [id number]# / / Explanted Type Area Sow Manager Device Identifier Shelf Expiration Date Model / Serial / Lot Rinku - [id number] Explanted:Qty: 1 on 04/15/2014 by Kunal Gerard MD at [facility] Right: Spine Medtronic Spine/Ortho 02/21/2019 [id number] / / [id number] Procedures Procedure Name Priority Date/Time Associated Diagnosis Comments SCAN CORRESP-LABORATORY RESULTS 11/07/2023 12:00 AM CDT SCAN CORRESP-IMAGING 11/07/2023 12:00 AM CDT SCAN-RADIOLOGY REPORT 11/02/2023 12:00 AM CDT SCAN-CT INTERPRETATION 12:00 AM CDT PROTIME-INR STAT 10/19/2023 12:09 PM CDT Anticoagulation [...] mechanical valve INR,POCT Routine 08/25/2023 1:01 PM REHABILITATION TEAM LEAD Anticoagulation monitoring, INR range 2.5-3.5 History of mitral valve replacement with mechanical valve from Last 3 Months Results * SCAN CORRESP-LABORATORY RESULTS (11/07/2023 12:00 AM CDT) Only the most recent of3 resultswithin the time period is included. Scanner OTHER * SCAN CORRESP-IMAGING (11/07/2023 12:00 AM CDT) Anatomical Region Laterality Modality Other Scanner OTHER * SCAN-RADIOLOGY REPORT (11/02/2023 12:00 AM CDT) Anatomical Region Laterality Modality Other Scanner OTHER * SCAN-CT INTERPRETATION (11/02/2023 12:00 AM CDT) Anatomical Region Laterality Modality Other Scanner OTHER * (ABNORMAL) PROTIME-INR (10/19/2023 12:09 PM CDT) Only the most recent of4 resultswithin the time period is included. INR 3.5(H) <1.3 10/19/2023 9:32 PM CDT [facility] PROTIME 37.4(H) 10.3 - 12.3 sec 10/19/2023 9:32 PM CDT [facility] Blood BLOOD SPECIMEN / Unknown Venipuncture / Unknown 10/19/2023 12:09 PM CDT 10/19/2023 12:09 PM CDT Narrative [facility] - 10/19/2023 9:32 [...] is on UFH. Jack Smith MD HEMATOLOGY [facility] [address] [place] [address], * (ABNORMAL) INR,POCT (10/05/2023 11:06 AM CDT) Only the most recent of2 resultswithin the time period is included. INR 3.7(H) <1.3 10/05/2023 11:10 AM CDT [facility] Blood BLOOD SPECIMEN / Unknown 10/05/2023 11:06 AM CDT 10/05/2023 11:10 AM CDT Narrative [facility] - 10/05/2023 11:10 AM CDT ?Therapeutic Range 2.0-3.0 for most anticoagulated patients 2.5-3.5 or 4.0 for high risk patients Jack Smith MD LABORATORY [facility] [address] [place] [address], from Last 3 Months Advance Directives Documents on File Type Date Recorded Patient Human Service Worker Expl anation Healthcare Directive 06/23/2021 022 * [...] 11:29 AM 04/18/2014 5:44 PM Care Teams Honeycomb Decapper Relationship Specialty Start Date End Date Jack Smiht MD [address] [place] [address] PCP - General Family Practice 10/08/13 Randy Roberts MD Surgery - Orthopedics 08/12/11 Rocky Borrero [address] [facility] [address] Recruiting Assistant 08/12/[address] [address] 02/06/23
--- OUTSIDE RECORDS SUMMARY | 2023-11-13 13:07 | XMS_ITS | Continuity of Care Document ---
Author Organization [facility] Address [address] [place] [address] Phone Care Team Providers Care Animal Nutrition Consultant Name Role Phone Denis Abraham MD Unavailable Unavailable Allergies, Adverse Reactions, Alerts Substance Reaction Status Criticality INDOMETHACIN SODIUM Active No Infor mation indomethacin Active No Information Medications Medication Instructions Dosage Effective Dates (start - stop) Status Comments TYLENOL EXTRA STRENGTH (unknown strength) Not Available - Active CELEBREX (unknown strength) Not Available - Active LOVENOX (unknown strength) Not Available - Active COUMADIN (unknown strength) Not Available - Active Procedures Procedure Date Office/Outpatient Visit,[facility] 2013 X-Ray Exam Lwr Spine, Min 4 Views Advance Directives Directive Yes / No Effective Date File Name No Information Encounters Encounter Description Practice Location Reason(s) For Visit Diagnoses Date Provider Providers Copied on Encounter [facility], [address], [place], [place], [id number], [place] tel:[phone] [facility] No Information 2-201 5 Abraham Denis. [facility], [address] [place] [address], [address], [place], [place], [id number] , [place]. tel:[phone] Office/Outpat ient Visit,[facility] Z [facility], [address], [place], [address], [place] tel:[phone] [facility] [place] Apr- 0-201 4 Abraham Denis. [facility], [address] [place] [address], [address], [place], [place], [id number] , [place]. tel:[phone] Referring Provider: Dakota Holcomb, [address], [address] . tel:[phone] Family History Family Member Type Diagnosis Age At Onset No Information Payers Payer name Insurance type Covered green party ID Authoriza tion(s) No Information Social [...]
--- OUTSIDE RECORDS SUMMARY | 2023-11-13 13:08 | XMS_ITS | Continuity of Care Document ---
Author Organization [facility] Address [address] [place] [address] Phone Care Team Providers Care Collections Curator Name Role Phone Denis Abraham MD Unavailable [...] Copied on Encounter [facility], [address], [place], [place], [id number], [place] tel:[phone] [facility] No Information 2-201 5 Abraham Denis. [facility], [address] [place] [place] [address], [address], [place], [place], [id number] , [place]. tel:[phone] Office/Outpat ient Visit,[facility] Z [facility], [address], [place], [address], [place] tel:[phone] [facility] [place] Apr- 0-201 4 Abraham Denis. [facility], [address], [address], [place], [place], [id number] , [place]. tel:[phone] Referring Provider: Dakota Holcomb, [address], [address] . tel:[phone] Family History Family Member Type Diagnosis Age At Onset No Information Payers Payer name Insurance type Covered democrat ID Authoriza tion(s) No Information Social History [...]
[2023-11-13 13:16] LABS: Chloride* 106 mmol/L (96-114); Potassium* 3.8 mmol/L (3.6-5.1); Sodium* 137 mmol/L (135-149)
[2023-11-13 13:19] LABS: Anion Gap 7 mEq/L (7-15); Blood Urea Nitrogen* 33 mg/dL (7-30); Carbon Dioxide* 24 mmol/L (20-32); Creatinine* 1.1 mg/dL (0.5-1.5); Est. Creatinine Clearance* 50.69; Estimated Glomerular Filt Rate 66 ml/min; Glucose* 162 mg/dL (60-115); INR 4.14 (0.91-1.10); Prothrombin Time 43.4 Seconds
[2023-11-13 13:20] LABS: Calcium* 8.7 mg/dL (8.4-10.6)
[2023-11-13] MEDS: 0.9 % SODIUM CHLORIDE 500 ML 500 ML IV (13:35)
[2023-11-13 14:32] VITALS: BP 120/77; PULSE 78; RESP 18; O2SAT 95
== END 2023-11-13 15:00 | disposition home or self-care (01) ==
PROVIDERS: Emergency Provider Emergency Medicine; PCP Surgery
DX: S22.32XA Fracture of one rib, left side, initial encounter for closed fracture (principal); W01.10XA Fall on same level from slipping, tripping and stumbling with subsequent striking against unspecified object, initial encounter
CPT/HCPCS: 36415; 71260; 80048; 85025; 85610; 99284; J7030; Q9967

== ENCOUNTER 2024-03-13 13:50 | Emergency (ER) | payer MEDICARE, OTHER, SELFPAY ==
--- NOTE | 2024-03-13 14:10 | CRLHL7_ITS ---
For Patients: As a result of the Century Cures Act, medical imaging exams and procedure reports are released immediately into your electronic medical record. You may view this report before your referring provider. If you have questions, please contact your health care provider. INDICATION: FALL. LACERATION TOP OF HEAD TECHNIQUE: CT of the head was performed without IV contrast. COMPARISON: 10/23/2022. FINDINGS: Parenchyma: No acute hemorrhage, infarction, or mass. Moderate scattered periventricular white matter hypoattenuation is nonspecific and is favored to represent chronic small vessel ischemic disease. Ventricles and extra-axial spaces: Moderate involutional changes. Visualized paranasal sinuses: Mild mucosal thickening of the bilateral ethmoid sinuses. Mastoid air cells: Clear. Bones: No focal abnormality. 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 Additional comment: None. IMPRESSION: No acute intracranial abnormality. Please note that all CT scans at this facility use dose modulation, iterative reconstruction, and/or weight-based dosing when appropriate to reduce radiation dose to as low as reasonably achievable. Dictated by Romain Edwards MD @ 03/13/2024 2:56:11 PM (Electronically Signed)
[2024-03-13 14:12] VITALS: BP 120/81; PULSE 84; RESP 18; TEMP 36.4; O2SAT 98; BMI 29.5
--- NOTE | 2024-03-13 14:37 | ED_ITS ---
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 He was going to bed last night around midnight. He was sitting on the edge of his bed and he thinks he probably fell asleep and fell forward. He thinks he hit the top of his head against the top of his his bedside table. He recalls falling and had no less of consciousness. He landed on both of his knees and they were sore. He had some difficulty getting off the floor because he had injuries to his knees and right elbow. However he was able to get himself up. He has been able to ambulate (with his cane) since then. He has knee pain and elbow pain and city was bleeding from the top of his head he came to the ER this morning. He was bleeding from a cut on the top of his head. Bleeding was controlled by direct pressure at home. He does not have a headache. Vision is at baseline. No nausea or vomiting. No confusion. He does not have any neck pain. He does have some back pain which is chronic, but may be worse than normal. No chest pain or rib pain. No abdominal pain. No pain in his hips or pelvis. He does have knee pain, more so in the right knee than in the left knee. He has had a previous left knee replacement. He takes warfarin for history of AFib. He was due to have an INR checked today. He missed his dose of warfarin this morning, and may have for gotten yesterday as well. No other unusual bleeding or bruising. Related Data Home Medications ?Medication ?Instructions ?Recorded ?Confirmed atorvastatin 20 mg tablet 20 mg PO HS 12/23/21 01/25/24 celecoxib 200 mg capsule 200 mg PO DAILY 12/23/21 01/25/24 cholecalciferol (vitamin D3) 50 50 mcg PO DAILY 12/23/21 01/25/24 mcg (2,000 unit) capsule (Vitamin D3) warfarin 5 mg tablet 5 mg PO DAILY 12/23/21 01/25/24 Previous Rx's ?Medication ?Instructions ?Recorded lidocaine 5 % topical patch 1 patch topical DAILY #15 ea 11/02/23 (Lidoderm) Allergies Allergy/AdvReac Type Severity Reaction Status Date / Time indomethacin Allergy Intermediate Bleeding Verified 01/25/24 09:00 Sulfa (Sulfonamide Allergy Intermediate Hives Verified 01/25/24 09:00 Antibiotics) [facility] Medical History Osteoarthritis of right knee ?M17.11 - Unilateral primary osteoarthritis, right knee (ICD-10) SHASTA (obstructive sleep apnea) ?G47.33 - Obstructive sleep apnea (adult) (pediatric) (ICD-10) Congestive heart failure (CHF) ?I50.9 - Heart failure, unspecified (ICD-10) Hyperlipemia ?E78.5 - Hyperlipidemia, unspecified (ICD-10) Arthritis ?M19.90 - Unspecified osteoarthritis, unspecified site (ICD-10) Surgical History Hx of tonsillectomy ?Z90.89 - Acquired absence of other organs (ICD-10) H/O vasectomy ?Z98.52 - Vasectomy status (ICD-10) 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, [facility]) Smoking Status: Never smoker Second hand tobacco smoke exposure: No How often do you have a drink containing alcohol: never How often do you have six or more drinks on one occasion: Never AUDIT-C Alcohol total score: 0 Non-prescribed substance use: denies use service: No Exam Narrative: Exam Narrative: Primary Survey: A- patent. Speaking clearly. Phonation normal. No stridor. B- breathing easily. Lung sounds clear and equal. Oxygen saturation normal on room air C- no active bleeding. Blood pressure stable. Symmetric pulses and cap refill in 4 extremities. D- alert and oriented x3. GCS 15. No focal deficits. He does have a 2 cm cut on the vertex of his scalp. Slow venous oozing. No arterial bleeding. No significant hematoma. Constitutional: Appears well-developed and well-nourished. Alert. Conversant. Non toxic. HENT: Head: . 2 cm cut on the vertex of his scalp. No depressed skull fracture, Raccoon Eyes, Medina's sign, or hemotympanum. Face normal. Bilateral hearing aids Nose: Nose normal. Mouth/Throat: Oral mucosa is clear and moist. no trismus. Pharynx normal. Tonsils symmetric. No tonsillar enlargement, erythema, or exudate. Eyes: Conjunctivae normal. EOM normal. Pupils equal, round, and reactive to light. No scleral icterus. Neck: Normal range of motion. Neck supple. No tracheal deviation present. No posterior midline tenderness. No step-off. Cardiovascular: Normal rate, regular rhythm. No gallop. No friction rub. No murmur heard. Symmetric radial artery pulses Pulmonary/Chest: Effort normal. No stridor. No respiratory distress. No wheezes. No rales. No rhonchi . No tenderness. Abdominal: Soft. Bowel sounds normal. No distension. No mass. No tenderness. No rebound. No guarding. Musculoskeletal: RUE: Normal range of motion. Tenderness over the right elbow including the medial and lateral epicondyles, olecranon. He does have full range of motion from flexion beyond 90? out to extension. Normal pronation/supination of his f orearm. No clavicle, shoulder, humeral shaft, forearm, wrist, or hand tenderness. No deformity LUE: Normal range of motion. No tenderness. No deformity Mild tenderness of his low back. No midline step-off. No bruising. No abrasion. Pelvis stable. Hips nontender. RLE: Normal range of motion. No edema. Right anterior knee tenderness. No deformity no swelling. No bony crepitus. LLE: Normal range of motion. No edema. Left knee anterior tenderness. No deformity Lymph: No cervical adenopathy. Neurological: Alert and oriented to person, place, and time. Normal strength. CN II-VII intact. No sensory deficit. GCS eye subscore is 4. GCS verbal subscore is 5. GCS motor subscore is 6. Normal coordination . Walks with his cane. Skin: Skin is warm and dry. No rash noted. No pallor. Normal capillary refill. Psychiatric: Normal mood. Normal affect. Const: Vital Signs, click to edit/add: Vital Signs - 24 hr 03/13/24 14:12 Temperature 97.5 F L Pulse Rate [Right Pulse Oximeter] 84 Respiratory Rate 18 Blood Pressure [Ri ght Upper Arm] 120/81 Pulse Oximetry 98 Oxygen Delivery Me thod Room Air Course Vital Signs Vital signs: Initial Vital Signs Temperature 97.5 F L 03/13/24 14:12 Temperature Source Temporal Artery Scan 03/13/24 14:12 Pulse Rate 84 03/13/24 14:12 Respiratory Rate 18 03/13/24 14:12 Blood Pressure 120/81 03/13/24 14:12 Blood Pressure Mean 94 03/13/24 14:12 Blood Pressure Position Sitting 03/13/24 14:12 Pulse Oximetry 98 03/13/24 14:12 Oxygen Delivery Method Room Air 03/13/24 14:12 Vital Signs Temperature 97.5 F L 03/13/24 14:12 Pulse Rate 84 03/13/24 14:12 Respiratory Rate 18 03/13/24 14:12 Blood Pressure 120/81 03/13/24 14:12 Pulse Oximetry 98 03/13/24 14:12 Oxygen Delivery Method Room Air 03/13/24 14:12 Temperature 97.5 F L 03/13/24 14:12 Pulse Rate 84 03/13/24 14:12 Respiratory Rate 18 03/13/24 14:12 Blood Pressure 120/81 03/13/24 14:12 Pulse Oximetry 98 03/13/24 14:12 Oxygen Delivery Method Room Air 03/13/24 14:12 Medical Decision Making MDM Narrative Medical decision making narrative: Very pleasant 88-year-old gentleman who is on warfarin presenting to the ER today with a ground level mechanical fall. He slipped off the edge of his bed last night and scraped the top of his head against his bedside table. Sounds like he landed awkwardly on the floor and may have twisted his knees. He was able to get himself up and stayed home last night but came into the ER this morning has had ongoing bleeding from a cut on the top of his scalp. This patient presents with blunt head trauma. Differential includes intracranial injuries (e.g. skull fracture, epidural hematoma, subdural hematoma, intracerebral hemorrhage, and traumatic subarachnoid hemorrhage), verses concussion or other traumatic brain injury. CT imaging was obtained and fortunately was normal. Patient's INR is therapeutic. The overall he is neurologically intact. He is safe to go home with his son. The patient/family understand that they must return if any red flags appear/develop in the coming hours/days, as this may represent an indication to perform a repeat CT scan or further evaluation. I have noted that red flags include: headaches that get worse, increased drowsiness, strange behavior, repetitive speech, seizures, repeated vomiting, growing confusion, increased irritability, slurred speech, weakness or numbness, and loss of responsiveness. He did have a laceration on the top of his head. Findings and exam are consistent with an uncomplicated laceration which was repaired as noted above. There is no evidence at this time to suggest any associated fracture or foreign body. There is no evidence to suggest intracranial injury and patient is neurologically in tact. The patient is to follow up for suture removal as instructed in 5-7 days. Indications to seek urgent reevaluation and signs of infection (including but not limited to increasing pain, redness, swelling, fevers, and drainage) were reviewed. Tetanus is up-to-date. This is a clean and noncontaminated wound in which prophylactic antibiotics are not indicated. An understanding of the discharge instructions and need for follow up were verbally confirmed. facial laceration. He also injured his elbow when he fell. Neurologically intact in the right arm. No evidence for laceration. X-rays negative for fracture. No exam or history evidence to suggest dislocation. He also injured both of his knees when he fell. Right knee more than left. X- rays are negative for any acute fracture. There is an effusion in the right knee which could suggest a possible internal derangement. However no definite ligamentous laxity on my exam. He will follow-up with orthopedics if not improving within the next 2-3 days for repeat evaluation. He will return to the ER if worse. At this point we think that his fall was likely related to slipping off the edge of his bed rather than a syncopal event or seizure. He recalls falling and recalls hitting his head. No loss of consciousness. Lab Data Labs: Lab Results 03/13/24 Range/Units 15:36 WBC 8.97 (4.50-11.00) K/uL RBC 4.50 (4.30-5.90) m/uL Hgb 13.2 L (13.5-17.5) gm/dL Hct 41.7 (37.0-53.0) % MCV 93 (80-100) fL MCH 29 (26-34) pg MCHC 32 (32-36) gm/dL RDW Coeff of [place] 14.8 (11.5-15.5) % Plt Count 133 L (140-440) K/uL Neut % (Auto) 65.0 (42.0-72.0) % Lymph % (Auto) 25.4 (20-44) % [place] % (Auto) 7.0 (0.0-11.0) % Eos % (Auto) 2.2 (0.0-7.0) % Baso % (Auto) 0.3 (0.0-3.0) % Neut # (Auto) 5.82 (1.7-7.0) K/uL Lymph # (Auto) 2.28 (0.90-2.90) K/uL [place] # (Auto) 0.60 (0.00-0.90) K/UL Eos # (Auto) 0.20 (0.00-0.50) K/uL Baso # (Auto) 0.03 (0.00-0.30) K/uL Abs Immat Gran (auto) 0.01 (0.00-0.30) K/uL Imm/Tot Granulo (auto) 0.1 % INR 2.28 H (0.91-1.10) Imaging Data CT scan - head: Attestation: I have reviewed the pertinent imaging results. Radiologist's impression: IMPRESSION: No acute intracranial abnormality. XR L spine: Attestation: I have reviewed the pertinent imaging results. Radiologist's impression: Impression: No acute displaced fracture or malalignment. Moderate degenerative changes of the visualized lumbar spine. Postsurgical changes from L5-S1 posterior spinal fusion. XR Elbow: Attestation: I have reviewed the pertinent imaging results. Radiologist's impression: Impression: Calcifications in the region of the elbow may represent sequela of chronic prior trauma. No definite acute displaced fracture or malalignment. No significant elbow joint effusion. XR knee: Attestation: I have reviewed the pertinent imaging results. Radiologist's impression: Right: 1. No acute displaced fracture or malalignment. 2. Moderate degenerative changes of the knee. 3. Moderate knee joint effusion. 4. Chondrocalcinosis. Left: Postsurgical changes from left total knee arthroplasty without acute fracture or hardware complication. Discharge Plan Discharge Clinical Impression: Laceration of scalp, Head injury, Contusion of elbow, right, Low back pain, Bilateral knee pain, Effusion of knee joint right Patient Disposition: Home, Self-Care Condition: Stable Instructions: Head Injury (ED), Acute Low Back Pain (ED), Knee Pain (ED), Facial Laceration (ED) Additional Instructions: As we discussed, please keep your scalp laceration clean. Wash it gently once per day. After it is cleaned reapply antibiotic ointment. Follow-up with your doctor or come back to the ER for suture removal in 5-7 days. Watch for signs of infection and if you have redness, swelling, or pus draining from your cut, please return to the ER right away. If you have worsening headache, blurry vision, nausea vomiting, or any other symptoms of brain injury, come back to the ER right away. We do not see any signs of broken bones in your elbow, low back, or in your knees. I suspect he probably bruised her elbow and sprained her back. He probably also injured the ligaments or cartilage in your right knee because you have some fluid on the knee. If your knee is not substantially improved within 2-3 days, please follow-up with the [facility]. You can call [phone] to schedule an ER follow-up appointment. Prescriptions: No Action atorvastatin 20 mg tablet 20 mg PO HS Patient Comments: TAKE 1 TABLET BY MOUTH EVERY DAY warfarin 5 mg tablet 5 mg PO DAILY Patient Comments: TAKE HALF TABLET (2.5 MG) BY MOUTH EVERY MONDAY. TAKE 1 TABLET (5 MG) ALL OTHER DAYS OR DIRECTED cholecalciferol (vitamin D3) [Vitamin D3] 50 mcg (2,000 unit) capsule 50 mcg PO DAILY celecoxib 200 mg capsule 200 mg PO DAILY Patient Comments: TAKE 1 CAPSULE BY MOUTH ONCE DAILY WITH A MEAL. lidocaine [Lidoderm] 5 % adhesive patch,medicated 1 patch topical DAILY Qty: 15 0RF Rx Instructions: leave on most painful area for up to 12 hrs Follow Up/Referrals: Jack Smith MD [Primary Care Provider] - Stand Alone Forms: [facility] Info Instructions Procedures Laceration Scalp laceration: Pre procedure diagnosis: 3 cm vertex scalp laceration Verification/time out: correct patient and correct site Site: scalp Size (cm): 3 Depth: simple, single layer Local Anesthetic: lidocaine 1% and with epi Pre-repair: wound explored Skin layer closed with: nylon Size (cm): 6-0 Number of sutures: 6 Technique: simple, interrupted
--- NOTE | 2024-03-13 14:48 | CRLHL7_ITS ---
For Patients: As a result of the Cures Act, medical imaging exams and procedure reports are released immediately into your electronic medical record. You may view this report before your referring provider. If you have questions, please contact your health care provider. Indication: FALL, RT ELBOW PAIN Technique: Two views of the right elbow. Comparison: None. Findings: Calcifications in the region of the elbow may represent sequela of chronic prior trauma. Moderate vascular calcification. No definite acute displaced fracture or malalignment. No significant elbow joint effusion. Impression: Calcifications in the region of the elbow may represent sequela of chronic prior trauma. No definite acute displaced fracture or malalignment. No significant elbow joint effusion. Dictated by Romain Edwards MD @ 03/13/2024 4:15:03 PM (Electronically Signed)
--- NOTE | 2024-03-13 14:48 | CRLHL7_ITS ---
For Patients: As a result of the Cures Act, medical imaging exams and procedure reports are released immediately into your electronic medical record. You may view this report before your referring provider. If you have questions, please contact your health care provider. Indication: FALL, LOW BACK PAIN Technique: Two views of the lumbar spine. Comparison: None. Findings: Moderate degenerative changes of the visualized spine with mild rightward curvature of the lumbar spine. Moderate facet arthropathy from L4-S1. Postsurgical changes from L5-S1 posterior spinal fusion. No acute displaced fracture or malalignment. Impression: No acute displaced fracture or malalignment. Moderate degenerative changes of the visualized lumbar spine. Postsurgical changes from L5-S1 posterior spinal fusion. Dictated by Romain Edwards MD @ 03/13/2024 4:17:55 PM (Electronically Signed)
--- NOTE | 2024-03-13 14:48 | CRLHL7_ITS ---
For Patients: As a result of the Cures Act, medical imaging exams and procedure reports are released immediately into your electronic medical record. You may view this report before your referring provider. If you have questions, please contact your health care provider. Indication: FALL, BILAT KNEE PAIN Technique: Three views of the bilateral knees. Comparison: 08/26/2022 Findings: Right: No acute displaced fracture or malalignment. Moderate tricompartmental degenerative changes. Moderate vascular calcification. Moderate knee joint effusion. Punctate radiodense debris is again seen in the soft tissues of the superior aspect of the knee. Meniscal calcification. Left: Postsurgical changes from total knee arthroplasty. No acute fracture or hardware complication. No significant knee joint effusion. Impression: Right: 1. No acute displaced fracture or malalignment. 2. Moderate degenerative changes of the knee. 3. Moderate knee joint effusion. 4. Chondrocalcinosis. Left: Postsurgical changes from left total knee arthroplasty without acute fracture or hardware complication. Dictated by Romain Edwards MD @ 03/13/2024 4:34:10 PM (Electronically Signed)
[2024-03-13 15:43] LABS: Basophils Absolute Auto 0.03 K/uL (0.00-0.30); Basophils Percent Auto 0.3 % (0.0-3.0); Eosinophils Percent Auto 2.2 % (0.0-7.0); Hematocrit 41.7 % (37.0-53.0); Hemoglobin* 13.2 gm/dL (13.5-17.5); Immature Granulocytes Abs Auto 0.01 K/uL (0.00-0.30); Immature Granulocytes Pct Auto 0.1 %; Lymphocytes Absolute Auto 2.28 K/uL (0.90-2.90); Lymphocytes Percent Auto 25.4 % (20-44); Mean Corpuscular HGB Conc 32 gm/dL (32-36); Mean Corpuscular Hemoglobin 29 pg (26-34); Mean Corpuscular Volume 93 fL (80-100); Neutrophils Absolute Auto 5.82 K/uL (1.7-7.0); Platelet Count* 133 K/uL (140-440); RDW Coefficient of Variation % 14.8 % (11.5-15.5); White Blood Count* 8.97 K/uL (4.50-11.00)
[2024-03-13 15:48] LABS: Slide Review Reflex No
[2024-03-13 16:07] LABS: INR 2.28 (0.91-1.10); Prothrombin Time 26.9 Seconds
--- OUTSIDE RECORDS SUMMARY | 2024-03-13 16:07 | XMS_ITS | Continuity of Care Document ---
Author Organization [facility] Address [address] [place] [address] Phone Care Team Providers Care File Clerk Name Role Phone Denis Abraham MD Unavailable [...] Available - Active Procedures Procedure Date Office/Outpatient Visit,[facility] 2013 X-Ray Exam Lwr Spine, Min 4 Views Advance Directives Directive Yes / No Effective Date File Name No Information Encounters Encounter Description Practice Location Reason(s) For Visit Diagnoses Date Provider Providers Copied on Encounter [facility], [address], [place], [place], [id number], [place] tel:[phone] [facility] No Information 2-201 5 Abraham Denis. [facility], [address] [place] [address], [address], [place], [place], [id number] , [place]. tel:[phone] Office/Outpat ient Visit,[facility] Z [facility], [address], [place], [address], [place] tel:[phone] [facility] [place] Apr- 0-201 4 Abraham Denis. [facility], [address] [place] [address], [address], [place], [place], [id number] , [place]. tel:[phone] Referring Provider: Dakota Holcomb, [address], [address] . tel:[phone] Family History Family Member Type Diagnosis Age [...]
--- OUTSIDE RECORDS SUMMARY | 2024-03-13 16:07 | XMS_ITS | Clinical Summary ---
Author Organization [facility] Address [place], [place] [address] Care Team Providers Care Spanish Speaking Nanny Name Role Phone Randy Roberts MD Unavailable [phone] Rocky Borrero Unavailable Jack Smith MD Primary Care Provider [phone] [facility], [place] Unavailable Allergies Active Allergy Reactions Criticality Noted Date Comments Indomethacin GI Bleeding Nsaids (Non-Steroidal Anti-Inflammatory Drug) Bleeding High 08/26/2022 Sulfa (Sulfonamide Antibiotics) *Unknown - Childhood Rxn 03/31/2014 Medications Medication Sig Dispensed Refills Start Date End Date Status cholecalciferol (VITAMIN D-3) 2,000 unit capsuleIndications :osteoporosis Take 1 capsule by mouth once daily. Indications: OSTEOPOROSIS 0 04/18/20 14 Active amoxicillin (AMOXIL) 500 mg capsule TAKE 4 CAPSULES BY MOUTH 1 HOUR BEFORE DENTAL APPOINTMENT 1 03/02/20 17 Active ascorbic acid, vitamin C, (VITAMIN C) 1,000 mg tablet Take 1 tablet by mouth once daily. 0 03/26/20 20 Active BiPapIndications:O SA (obstructive sleep apnea) bPAP machine for home [...] months, Frequency of use: Daily 1 Each 11 04/24/20 23 Active celecoxib (CELEBREX) 200 mg capsuleIndications :Primary osteoarthritis of knee, unspecified laterality Take 1 Capsule (200 mg) by mouth once daily with a meal. 90 Capsule 3 05/08/20 23 Active atorvastatin (LIPITOR) 20 mg tabletIndications: Hyperlipidemia, unspecified hyperlipidemia type Take 1 Tablet (20 mg) by mouth once daily. 90 Tablet 3 05/08/20 23 Active mupirocin (BACTROBAN OINTMENT) ointment Apply topically to affected area(s) 2 times daily if needed (buttocks). Active acetaminophen (TYLENOL EXTRA STRGTH) 500 mg tabletIndications: S/P placement of cardiac pacemaker Take 2 Tablets (1,000 mg) by mouth every 6 hours if needed for Pain (For mild pain.). Max acetaminophen dose: 4000mg in 24 hrs. 07/08/19 24 Active clotrimazole (LOTRIMIN) 1 % creamIndications:I ntertrigo Apply topically to affected area(s) two times daily. 85 g 1 10/09/19 24 Active oxyCODONE (ROXICODONE) 5 mg immediate release tabletIndications: Closed fracture of multiple ribs of left side with routine healing, subsequent encounter Take 1 Tablet (5 mg) by mouth every 6 hours if needed for Pain. 28 Tablet 11/07/19 24 Active warfarin (COUMADIN) 5 mg tabletIndications: Anticoagulation monitoring, INR range 2.5-3.5,History of mitral valve replacement with mechanical valve Take by mouth 2.5 mg (5 mg x 0.5) every Mon, Wed, Fri; 5 mg (5 mg x 1) all other days in the evening OR as directed 72 Tablet 02/23/20 24 Active warfarin (COUMADIN) 5 mg tabletIndications: Anticoagulation monitoring, INR range 2.5-3.5,History of mitral valve replacement with mechanical valve Take by mouth 2.5 mg (5 mg x 0.5) every Wed; 5 mg (5 mg x 1) all other days in the evening OR as directed 01/19/20 24 024 Discontinued(Ot her - add note to specify (E-cancel not sent)) warfarin (COUMADIN) 5 mg tabletIndications: Anticoagulation monitoring, INR range 2.5-3.5,History of mitral valve replacement with mechanical valve Take by mouth 02/19: Hold; Otherwise 2.5 mg every Mon, Wed, Fri; 5 mg all other days in the evening OR as directed 02/21/20 024 Discontinued Active Problems Problem Noted Date Diagnosed Date Osteoarthritis of fingers of hands, bilateral Sinus node dysfunction 07/07/2023 Second degree Mobitz II AV block 07/07/2023 Syncope 07/07/2023 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 Lifelong anticoagulation. 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 09/08/2021 04/04/2022 Melanoma in situ of upper arm, left 08/23/2021 04/04/2022 Routine adult health maintenance 02/26/2018 04/02/2021 Overview (02/26/2018): Colonoscopy 02/2018 normal, no follow up needed S/P MVR (mitral valve replacement) 04/26/2014 04/02/2021 Severe sepsis 04/24/2014 01/19/2021 Leukocytosis 04/24/2014 04/02/2021 ACP (advance care planning) 04/17/2014 04/04/2022 Overview (04/24/2014): Patient has identified Health Care Agent(s): Yes Add Health Care Agents: Yes Medical Proxies Health Care Agent(s): Primary Health Care Agent: Diana Vallejo Relationship: Spouse , [phone] Secondary Health Care Agent: Alexander Vallejo Relationship: son , -c Conservator: Relationship: Phone: Guardian: Relationship: Phone: Pt has blank HCD form at home. Dysuria 02/20/2009 08/06/2010 Ingrowing nail 06/01/2008 04/02/2021 Corns and callosities 10/04/20072020 REPLACEMENT HEART VALVE BY OTHER MEANS 04/02/2014 Encounter for Long-Term (Cur rent) Use of Anticoagulants 12/03/2013 Overview (03/04/2009): INR Goal Range: 2.5 -3.5 Congestive heart failure, unspecified 08/06/2010 Rheumatoid Arthritis 022 Encounters Date Type Department Care Team Description 03/08/2024 Telephone [facility] [address] [place] [address] Jack Smith MD Anticoagulation (Chart Update lab orders/[facility] ) 02/28/2024 9:45 AM CDT Orders Only [facility] [address] [place] [address] Lab, [place] 02/28/2024 Telephone [facility] [address] [place] [address] Jack Smith MD Anticoagulation (Review dosing) 02/28/2024 Anticoagulation (warfarin) [facility] [address] [place] [address] 1, [facility] Anticoagulation 02/28/2024 Travel 02/23/2024 Refill [facility] [address] [place] [address] Jack Smith MD Refill Request (Warfarin) 02/21/2024 Telephone [facility] [address] [facility] [address] Jack Smith MD Anticoagulation (INR >5.0) 02/20/2024 1:30 PM CDT Orders Only [facility] [address] [place] [address] Lab, [place] 02/20/2024 Anticoagulation (warfarin) [facility] [address] [facility] [address] [facility]tico[facility] 02/20/2024 Travel 02/02/2024 9:30 AM CDT Orders Only [facility] [address] [facility] [address] [facility] [place] 02/02/2024 Anticoagulation (warfarin) [facility] [address] [facility] [address] 1, [facility]ticoagulation 02/02/2024 Travel 01/19/2024 10:00 AM CDT Orders Only [facility] [address] [facility] [address] Lab[facility] 01/19/2024 Anticoagulation (warfarin) [facility] [address] [facility] [address] 1, [facility]tico[facility] 01/19/2024 Travel 01/15/2024 Telephone [facility] [address] [facility] [address] Jack Smith MD Anticoagulation (Misplaced Warfarin dosing.) 01/05/2024 10:45 AM CDT Orders Only [facility] [address] [facility] [address] [facility] 01/05/2024 Anticoagulation (warfarin) [facility] [address] [facility] [address] 1, [facility]ticoagulation 01/05/2024 Travel 12/26/2023 1:15 PM CDT Orders Only [facility] [address] [facility] [address] Lab[facility] 12/26/2023 Anticoagulation (warfarin) [facility] [address] [place] [address] 1, [facility] Anticoagulation 12/26/2023 Travel 12/23/2023 Telephone [facility] [address] [facility] [address] Jack Smith MD Anticoagulation 12/22/2023 10:00 AM CDT Orders Only [facility] [address] [facility] [address] Lab, [place] 12/22/2023 Anticoagulation (warfarin) [facility] [address] [facility] [address] 1, [facility]tico[facility] 12/22/2023 Travel 12/15/2023 9:10 AM CDT Orders Only [facility] [address] [facility] [place] [address] Lab, [facility] 12/15/2023 Telephone [facility] [address] [facility] [address] Jack Smith MD Medication Management 12/15/2023 Anticoagulation (warfarin) [facility] [address] [facility] [address] 1, [facility] Antico[facility] 12/15/2023 Travel from Last 3 Months Immunizations Name Administration Dates Next Due AMB INFLUENZA IIV3 (AGE 65+ YRS) PF (Flu Clinic Only) 04/24/2018 AMB Influenza, IIV3 (Age >=3 years)(Flu Clinic Only) 04/16/2013,04/03/2012,05/04/2010 COVID-19 VACCINE SPIKEVAX (M ODERNA 50MCG/0.5ML) 12YO+ PFS 10/30/2023,05/08/2023 COVID-19 vaccine (Pfizer-Bio NTech 30mcg/0.3mL) 12YO+ BIVALENT PF, MDV 04/04/2022 COVID-19 vaccine (Pfizer-Bio NTech 30mcg/0.3mL) 12YO+ CARLITOS-SUCROSE PF, MDV 09/17/2021 COVID-19 vaccine (Pfizer-Bio NTech 30mcg/0.3mL) PF, MDV 04/26/2021,08/20/2020,07/30/2020 Influenza, High-dose [...] of Communication with Friends and Fami ly Not on file 02/15/2024 Financial Resource Strain Answer Date R ecorded [...] Sign Reading Time Taken Comments Blood Pressure 121/73 11/24/2023 11:56 AM CDT Pulse 86 11/24/2023 11:56 AM CDT Temperature 36.8 ??C (98.2 ??F) 07/08/2023 8:41 AM CS T Respiratory Rate 18 07/08/2023 8:41 AM LEPIDOPTERIST Oxygen Saturation 96% 11/24/2023 11:56 AM CDT Inhaled Oxygen Concentration - - Weight 92.6 kg (204 lb 1.6 oz) 11/24/2023 11:56 AM CDT Height 177.8 cm (5' 10) 07/07/2023 11:55 AM LEPIDOPTERIST Body Mass Index 29.29 07/07/2023 11:55 AM LEPIDOPTERIST Plan of Treatment Upcoming Encounters Date Type Department Care Team (Late st Contact Info) Description 04/02/2024 Cardiac Device Check [facility] [phone] 06/04/2024 10:30 AM LEPIDOPTERIST Office Visit [facility] [address] [place] [address] Onesimo Clayton MD [address] [place] [address] Health Maintenance Due Date Last Done Comments RSV vaccine for adults or (1 - 1-dose 75+ series) 2012 COVID-19 vaccine series ( season) 2024 10/30/2023, 05/08/2023, 04/04/2022, Additional history exists Influenza [...] 05/26/2021, 08/06/2010 Medical Devices Implanted Type Area Heavy Duty Truck Mechanic Device Identifier Shelf Expiration Date Model / Serial / Lot Bone Matrix 10cc Vitoss Foam Ba2x Synth - [id number] Implanted:Qty : 1 on 04/15/2014 by Kunal Gerard MD at [facility] Right: Lumbar Vertebrae [employer] [place] Spine 08/17/[id number] / / [id number] Screw Lmbr Post [id number] Cnnltd - [id number] Implanted:Qty : 1 on 04/15/2014 by Kunal Gerard MD at [facility] Right: Lumbar Vertebrae Medtronic Spine/Ortho [id number]# / / Description:7.5 * 45 mm sext ant screw Screw Lmbr Post 7.4g40xnbj Cnnltd - [id number] Implanted:Qty : 2 on 04/15/2014 by Kunal Gerard MD at [facility] Right: Lumbar Vertebrae Medtronic Spine/Ortho [id number]# / / [id number] - [id number] Implanted:Qty : 1 on 04/15/2014 by Kunal Gerard MD at [facility] Right: Lumbar Vertebrae Medtronic 11/07/2019 [id number] / / [id number] Description:Capstone control spinal system interbody fusion device (15 mm * 27 mm * 6 degrees) Chris 40mm Titnm Sextant - [id number] Implanted:Qty : 1 on 04/15/2014 by Kunal Gerard MD at [facility] Right: Lumbar Vertebrae Medtronic Spine/Ortho [id number]# / / Screw Lmbr Post 7.0z36leak Fa Cnnltd - [id number] Implanted:Qty : 1 on 04/15/2014 by Kunal Gerard MD at [facility] Right: Lumbar Vertebrae Medtronic Spine/Ortho [id number]# / / Chris 35mm Titnm Sextant - [id number] Implanted:Qty : 1 on 04/15/2014 by Kunal Gerard MD at [facility] Right: Lumbar Vertebrae Medtronic Spine/Ortho [id number]# / / Set Screw Lmbr Antltd - [id number] Implanted:Qty : 4 on 04/15/2014 by Kunal Gerard MD at [facility] Right: Lumbar Vertebrae Medtronic Spine/Ortho [id number]# / / Explanted Type Area Heavy Duty Truck Mechanic Device Identifier Shelf Expiration Date Model / Serial / Lot Rinku - [id number] Explanted:Qty: 1 on 04/15/2014 by Kunal Gerard MD at [facility] Right: Spine Medtronic Spine/Ortho 02/21/2019 [id number]# / / [id number] Procedures Procedure Name Priority Date/Time Associated Diagnosis Comments PROTIME-INR STAT 02/28/2024 10:00 AM CDT Anticoagulation monitoring, INR range 2.5-3.5 History of mitral valve replacement with mechanical valve PROTIME-INR Routine 02/20/2024 2:10 PM CDT Anticoagulation monitoring, INR range 2.5-3.5 History of mitral valve replacement with mechanical valve INR,POCT Routine 02/02/2024 12:07 PM CDT Anticoagulation monitoring, INR range 2.5-3.5 History of mitral valve replacement with mechanical valve INR,POCT Routine 01/19/2024 10:33 AM CDT Anticoagulation monitoring, INR range 2.5-3.5 History of mitral valve replacement with mechanical valve INR,POCT Routine 01/05/2024 10:14 AM CDT Anticoagulation monitoring, INR range 2.5-3.5 History of mitral valve replacement with mechanical valve INR,POCT Routine 12/26/2023 1:25 PM CDT Anticoagulation monitoring, INR range 2.5-3.5 History of mitral valve replacement with mechanical valve PROTIME-INR STAT 12/22/2023 10:29 AM CDT Anticoagulation monitoring, INR range 2.5-3.5 History of mitral valve replacement with mechanical valve PROTIME-INR STAT 12/15/2023 9:36 AM CDT Anticoagulation monitoring, INR range 2.5-3.5 History of mitral valve replacement with mechanical valve from Last 3 Months Results * (ABNORMAL) PROTIME-INR (02/28/2024 10:00 AM CDT) Only the most recent of4 resultswithin the time period is included. INR 2.4(H) <1.3 02/28/2024 3:32 PM CDT [facility] PROTIME 26.3(H) 10.3 - 12.3 sec 02/28/2024 3:32 PM CDT [facility] Blood BLOOD SPECIMEN / Unknown Venipuncture / Unknown 02/28/2024 10:00 AM CDT 02/28/2024 10:01 AM CDT [facility] - 02/28/2024 3:32 PM CDT ?Therapeutic Range 2.0-3.0 for most [...] is on UFH. Jack Smith MD HEMATOLOGY [facility] [address] [place] [address], * (ABNORMAL) INR,POCT (02/02/2024 12:07 PM CDT) Only the most recent of4 resultswithin the time period is included. INR 3.0(H) <1.3 02/02/2024 12:08 PM CDT [facility] Blood BLOOD SPECIMEN / Unknown Venipuncture / Unknown 02/02/2024 12:07 PM CDT 02/02/2024 12:08 PM CDT Narrative [facility] - 02/02/2024 12:08 PM CDT ?Therapeutic Range 2.0-3.0 for most anticoagulated patients 2.5-3.5 or 4.0 for high risk patients Jack Smith MD LABORATORY [facility] [address] [facility] [facility] [address], from Last 3 Months Advance Directives Documents on File Type Date Recorded Patient Cloud Subject Matter Expert Expl anation Healthcare Directive 06/23/2021 022 * [...] 11:29 AM 04/18/2014 5:44 PM Care Teams Spanish Speaking Nanny Relationship Specialty Start Date End Date Jack Smith MD [address] [place] [address] PCP - General Family Practice 10/08/13 Randy Roberts MD Surgery - Orthopedics 08/12/11 Rocky Borrero [address] [place] [address] Complex Director 08/12/[address] [address] 02/06/23
--- OUTSIDE RECORDS SUMMARY | 2024-03-13 16:08 | XMS_ITS | Continuity of Care Document ---
Author Organization [facility] Address [address] [place] [address] Phone Care Team Providers Care Auction Assistant Name Role Phone Denis Abraham MD Unavailable [...] Copied on Encounter [facility], [address], [place], [place], [id number], [place] tel:[phone] [facility] No Information 2-201 5 Abraham Denis. [facility] [place], [address] [place] [address], [address], [place], [place], [id number] , [place]. tel:[phone] Office/Outpat ient Visit,[facility] [place], [address], [place], [address], [place] tel:[phone] [facility] [place] [facility] [place] Apr- 0-201 4 Abraham Denis. [facility] [place], [address] [place] [address], [address], [place], [place], [id number] , [place]. tel:[phone] Referring Provider: Dakota Holcomb, [address], [address] . tel:[phone] Family History Family Member Type Diagnosis Age [...]
== END 2024-03-13 17:12 | disposition home or self-care (01) ==
PROVIDERS: Emergency Provider Emergency Medicine; PCP Surgery
DX: S01.01XA Laceration without foreign body of scalp, initial encounter (principal); M25.461 Effusion, right knee; M54.50 Low back pain, unspecified
CPT/HCPCS: 12002; 36415; 70450; 72100; 73070; 73562; 85025; 85610; 99284

== ENCOUNTER 2024-04-03 11:15 | Outpatient (RCR) | payer MEDICARE, OTHER, SELFPAY ==
--- NOTE | 2024-01-26 15:38 | PT.OPEX ---
PT [place] Outpatient Eval PT [facility] Outpatient Eval Start: 01/26/24 12:43 Freq: Status: Active Protocol: Document 01/26/24 12:46 SHELDON (Rec: 01/26/24 15:37 KLV [id number]) E-signed By Shahida Sarabia, PT Physical Therapy Outpatient Evaluation Insurance Information Insurance Name Other; See Comments Insurance Information/Comments UMR Medical Diagnosis Right rotator cuff tear arthropathy Primary OA of right shoulder Treating Diagnosis Right shoulder pain, limited shoulder ROM, muscle weakness, poor postural positioning/ strength Imaging Report Information Images show advanced joint space narrowing glenohumeral joint. This space is more notable [id number] on axillary view Sclerotic changes to the humeral head broad the. Small osteophytes off the inferior humeral head and glenoid. Superior head migration. Decrease acromial humeral space. Type 2 acromion. Calcifications seen superior to the AC joint, which may be consistent with AC joint arthrosis. Glenohumeral joint is still concentrically reduced. No fractures or avulsions. Subjective Subjective Yo reports to PT with chronic right shoulder pain and disability. Initially injury occurred 10/05/22 when he fell directly on to right shoulder. No fx noted at that time and recent imaging primarily shows joint space OA . Generally he has been using his left arm for most things such as showering and reaching up into cupboards so he does not irritate the right shoulder. Because of this he does not feel very limited with activity however would like to start being able to use his right shoulder and strengthen more without irritating it. Looking for direction today on how to do this. There was discussion with orthopedics that if he does feel limited with shoulder use upon starting to strengthen, reverse TSA may be the next step. Patient would like to avoid this if possible PMH: CHF, Hx of cancer, OA Pain Comments 10/26 Date of Last Physician Visit 01/25/24 Current Work Status Retired Objective Other/Pertinent Objective Standing UE AROM (R/L): -ER0: 45/58 -Abd: 132/136 -FF: 133/137 -IR: T12/T12 UE Strength (R/L): -ER0: R: 3/5, L: 4/5 -IR0: R: 5/5, L: 5/5 -FF: R: 3+/5, L: 4+/5 -Abduction: R: 4/5, L: 4+/5 Rounded shoulder and forward head posturing Impingement: -Dyer-Jose E: + Labral: -Modified Joy?s: + Bicep Tendon: -Speeds: - Rotator Cuff: -Drop Arm Test: - -ER Lag: - -Belly Press: - Functional Test Performed & Score QuickDASH: 40.9/100 Assessment Assessment/Impression Patient is an 88 year old male presenting to physical therapy for evaluation and treatment of chronic right shoulder pain. Patient presents with relatively good AROM with most limited motion being ER, RC weakness however no significant RC involvement noted today. Greatest weakness lies in FF and ER. These impairments are limiting the patients ability to use his right arm for daily activities such as showering, dressing, reaching forward and overhead. Patient appears motivated to participate in PT and presents with good prognosis to improve mobility, strength, proprioception and return to functional activities with skilled physical therapy intervention. Plan of Care Rehabilitation Potential Good Physical Therapy Goals In 4 visits: Pt will demonstrate WFL and symmetrical shoulder ROM with <2/10 pain Pt will report <2/10 with reaching into cupboards In 8 visits: Pt will exhibit 15-20 point improvement in QuickDASH Outcome measure to demonstrate functional improvement and progress towards goals Pt will exhibit RC, GH, and periscapular strength no less than 4/5 in order to lift/ carry/perform repetitive activities overhead Pt will demonstrate consistent HEP compliance to ensure progress in reaching established goals during course of care. Treatment Plan/Direct Interventions Ice/Cold/Vasopneumatic,Joint Mobilization,Manual Therapy, Neuromuscular Re-ed,Self-Care/ Home Management,Therapeutic Activities,Therapeutic Exercises Frequency/Duration 1x/wk for 4 weeks with additional 2-4 sessions prn based on progress Patient Will Be Discharged From Therapy Completion of LTG(s), Independent w/HEP, Independently Progressing Evaluation Billing Untimed Code Treatment Minutes 15 Complexity Low Certification Information Initial Certification Date 01/26/24 Ending Certification Date 04/21/24 Provider Signature Required Yes Provider Signature Shows Agreement With POC & Medical Necessity Physician NPI Number Write NPI# Here Physician Comment/Change : Physician Signature & Date Requested Please Sign/Date Here
== END 2024-04-03 13:02 | disposition home or self-care (01) ==
PROVIDERS: PCP Surgery; Visit Provider Physician Assistant Surgical
DX: M75.101 Unspecified rotator cuff tear or rupture of right shoulder, not specified as traumatic (principal); M19.011 Primary osteoarthritis, right shoulder; M25.511 Pain in right shoulder; Z74.09 Other reduced mobility; M62.81 Muscle weakness (generalized); R29.3 Abnormal posture; Z51.89 Encounter for other specified aftercare
CPT/HCPCS: 97110; 97161

== ENCOUNTER 2024-06-14 12:48 | Outpatient (CLI) | payer MEDICARE, OTHER, SELFPAY | END 2024-06-14 12:49 | disposition home or self-care (01) | LOC: WOUND 12:51 | PROVIDERS: PCP Surgery; Visit Provider Nurse Practitioner Family | DX: S81.812A Laceration without foreign body, left lower leg, initial encounter (principal); I50.9 Heart failure, unspecified; Z95.2 Presence of prosthetic heart valve; Z79.01 Long term (current) use of anticoagulants | CPT/HCPCS: 97597; G0463 ==

== ENCOUNTER 2024-06-21 15:11 | Outpatient (CLI) | payer MEDICARE, OTHER, SELFPAY | END 2024-06-21 15:12 | disposition home or self-care (01) | LOC: WOUND 15:12 | PROVIDERS: PCP Surgery; Visit Provider Nurse Practitioner Family | DX: S81.812A Laceration without foreign body, left lower leg, initial encounter (principal); I50.9 Heart failure, unspecified; Z95.2 Presence of prosthetic heart valve; Z79.01 Long term (current) use of anticoagulants | CPT/HCPCS: G0463 ==

== ENCOUNTER 2024-06-28 10:06 | Outpatient (CLI) | payer MEDICARE, OTHER, SELFPAY | END 2024-06-28 10:07 | disposition home or self-care (01) | LOC: WOUND 10:07 | PROVIDERS: PCP Surgery; Visit Provider Nurse Practitioner Family | DX: S81.812D Laceration without foreign body, left lower leg, subsequent encounter (principal); I50.9 Heart failure, unspecified; Z95.2 Presence of prosthetic heart valve; Z79.01 Long term (current) use of anticoagulants | CPT/HCPCS: G0463 ==

== ENCOUNTER 2024-07-17 13:00 | Outpatient (RCR) | payer MEDICARE, OTHER, SELFPAY | END 2024-08-22 10:37 | disposition home or self-care (01) | PROVIDERS: PCP Surgery; Visit Provider Surgery | DX: R41.89 Other symptoms and signs involving cognitive functions and awareness (principal); R26.89 Other abnormalities of gait and mobility; R29.6 Repeated falls; Z74.1 Need for assistance with personal care; Z51.89 Encounter for other specified aftercare | CPT/HCPCS: 97110; 97112; 97116; 97162; 97166; 97535 ==

== ENCOUNTER 2024-08-13 19:21 | Inpatient (IN) | payer MEDICARE, OTHER, SELFPAY ==
[2024-08-13] VITALS (17 sets, daily range): BP systolic 85–130; BP diastolic 51–77; PULSE 54–89; RESP 16–18; TEMP 37.1–39.4; O2SAT 92–96; BMI 27.3; BMI 25.3
--- OUTSIDE RECORDS SUMMARY | 2024-08-13 19:23 | XMS_ITS ---
Author Name Interface, [id number] lity Address [address] [place] [address] [address] [place] [address] Organization [facility] Address [address] [place] [address] [address] [place] [address] Care Team Providers Care Tree Care Foreman Name Role Phone Jovanny Richardson Unavailab le Allergies and Adverse Reactions Medication/Group Name Reaction Severity Date Sulfamide 07/26/2021 Plan Date Type Value 03/24/2022 APPOINTMENT OV 10 MIN Reason for Visit OV 10 MIN Encounters Date Name 03/24/2022 Melanoma Medications Date Name Route Dose Frequency Instructions Start Date End Date Status Celecoxib Oral ac tive Atorvastatin Oral active Cholecalciferol Oral 2.0 active Warfarin Oral act romy Ascorbic Acid Oral active Amoxicillin Oral For dental work active Problems Diagnosis Status Date of Diagnosi s Melanoma Active 06/14/2021 Vital Signs Date Type Value 03/24/2022 Height 70.00 03/24/2022 Pain Scale 0.00
--- OUTSIDE RECORDS SUMMARY | 2024-08-13 19:23 | XMS_ITS | CCD ---
Author Name Interface, [id number] lity Address [address] [place], [place] [address] [place] [address] Organization [facility] Address [address] [place], [place] [address] [place] [address] Care Team Providers Care Teacher Assistant Name Role Phone Jovanny Richardson Unavailable Unavailab le Reason for Visit Encounters Medications Social History
--- OUTSIDE RECORDS SUMMARY | 2024-08-13 19:23 | XMS_ITS | Continuity of Care Document ---
Author Organization [facility] Address [address] [place] [address] Phone Care Team Providers Care Drawing Kiln Operator Name Role Phone Denis Abraham MD Unavailable [...] Available - Active Procedures Procedure Date Office/Outpatient Visit,[facility] 2013 X-Ray Exam Lwr Spine, Min 4 Views Advance Directives Directive Yes / No Effective Date File Name No Information Encounters Encounter Description Practice Location Reason(s) For Visit Diagnoses Date Provider Providers Copied on Encounter [facility], [address], [place], [place], [id number], [place] tel:[phone] [facility] No Information 2-201 5 Abraham Denis. [facility] [place], [address] [place] [address], [address], [place], [place], [id number] , [place]. tel:[phone] Office/Outpat ient Visit,[facility] Z [facility] [place], [address], [place], [address], [place] tel:[phone] [facility] [place] [facility] [place] Apr- 0-201 4 Abraham Denis. [facility] [place], [address] [place] [address], [address], [place], [place], [id number] , [place]. tel:[phone] Referring Provider: Dakota Holcomb, [address], [address] . tel:[phone] Family History Family Member Type Diagnosis Age At Onset No Information Payers Payer name Insurance type Covered libertarian ID Authoriza tion(s) No Information Social History [...]
--- OUTSIDE RECORDS SUMMARY | 2024-08-13 19:23 | XMS_ITS | Clinical Summary ---
Author Organization [facility] Address [address] [place] [address] Care Team Providers Care Director Fixed Income Name Role Phone Randy Roberts MD Unavailable Rocky Borrero Unavailable Jack Smith MD Primary Care Provider [phone] [facility] Allergies Active Allergy Reactions Criticality Noted Date Comments Indomethacin GI Bleeding Nsaids (Non-Steroidal Anti-Inflammatory Drug) Bleeding High 08/26/2022 Sulfa (Sulfonamide Antibiotics) *Unknown - Childhood Rxn 03/31/2014 Medications cholecalciferol (VITAMIN D-3) 2,000 unit capsuleIndication s:osteoporosis Take 1 capsule by mouth once daily. Indications: OSTEOPOROSIS 0 04/18/20 14 Active amoxicillin (AMOXIL) 500 mg capsule TAKE 4 CAPSULES BY MOUTH 1 HOUR BEFORE DENTAL APPOINTMENT 1 03/02/20 17 Active ascorbic acid, vitamin C, (VITAMIN C) 1,000 mg tablet Take 1 tablet by mouth once daily. 0 03/26/20 20 Active BiPapIndications: SHASTA (obstructive sleep apnea) bPAP machine for home [...] months, Frequency of use: Daily 1 Each 04/24/20 23 Active acetaminophen (TYLENOL EXTRA STRGTH) 500 mg tabletIndications :S/P placement of cardiac pacemaker Take 2 Tablets (1,000 mg) by mouth every 6 hours if needed for Pain (For mild pain.). Max acetaminophen dose: 4000mg in 24 hrs. 07/08/19 24 Active clotrimazole (LOTRIMIN) 1 % creamIndications: Intertrigo Apply topically to affected area(s) two times daily. 85 g 1 10/09/19 24 Active atorvastatin (LIPITOR) 20 mg tabletIndications :Hyperlipidemia, unspecified hyperlipidemia type Take 1 Tablet (20 mg) by mouth once daily. 90 Tablet 3 05/10/20 24 Active celecoxib (CELEBREX) 200 mg capsuleIndication s:Primary osteoarthritis of knee, unspecified laterality Take 1 Capsule (200 mg) by mouth once daily with a meal. 90 Capsule 3 05/10/20 24 Active warfarin (COUMADIN) 5 mg tabletIndications :Anticoagulation monitoring, INR range 2.5-3.5,History of mitral valve replacement with mechanical valve Take by mouth 5 mg (5 mg x 1) every Mon, Mon, Fri; 2.5 mg (5 mg x 0.5) all other days in the evening OR as directed 08/01/19 25 Active warfarin (COUMADIN) 5 mg tabletIndications :Anticoagulation monitoring, INR range 2.5-3.5,History of mitral valve replacement with mechanical valve TAKE BY MOUTH 2.5 MG (5 MG X 0.5) EVERY MONDAY/MONDAY /MONDAY AND 5 MG (5 MG X 1) ALL OTHER DAYS IN THE EVENING OR DIRECTED 76 Tablet 05/30/20 24 025 Discontin ued(Reord er (E-cancel not sent)) warfarin (COUMADIN) 5 mg tabletIndications :Anticoagulation monitoring, INR range 2.5-3.5,History of mitral valve replacement with mechanical valve Take by mouth 5 mg (5 mg x 1) every Mon, Mon, Mon; 2.5 mg (5 mg x 0.5) all other days in the evening OR as directed 07/26/19 25 025 Discontin ued(Reord er (E-cancel not sent)) Active Problems Problem Noted Date Diagnosed Date Osteoarthritis of fingers of hands, 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 07/07/2023 Syncope 07/07/2023 Atrial fibrillation with slow ventricular respon se [...] Problem Noted Date Diagnosed Date Resolved Date Sinus node dysfunction 07/07/202305/10 Normal pressure hydrocephalus 10/21/2022 05/10/2024 Overview (10/21/2022): CT emergency room [place] with more prominent enlarged right ventricle - bigger than before - Neurology suggested evaluation for shunt 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 [...] Care Agent: Diana Vallejo Relationship: Spouse , [phone] Secondary Health Care Agent: Alexander Vallejo Relationship: [...] Encounters Date Type Department Care Team Description 08/06/2024 Telephone [facility] [address] [facility] [place] [address] Jcak Smith MD Anticoagulation (Review update) 08/01/2024 2:00 PM PRODUCTION PACKAGER Orders Only [facility] [address] [place] [place] [address] Lab, [place] <No scans attached> 08/01/2024 Anticoagulation (warfarin) [facility] [address] [facility] [place] [address] 1, [facility] Anticoagulation 08/01/2024 Travel 07/26/2024 1:15 PM PRODUCTION PACKAGER Orders Only [facility] [address] [facility] [place] [address] [place], [place] [facility] 07/26/2024 Anticoagulation (warfarin) [facility] [address] [facility] [place] [address] 1, [facility] Anticoagulation (lab) 07/26/2024 Travel 07/16/2024 Anticoagulation (warfarin) [facility] [address] [facility] [place] [address] 1, [facility] Anticoagulation 07/16/2024 Travel 06/04/2024 10:30 AM PRODUCTION PACKAGER Office Visit [facility] [address] [place] [address] Onesimo Clayton MD Sleep Follow-up 06/03/2024 Orders Only [facility] Scanner 1 scan: (1-Ord) RESMED, COMPLIANCE REPORT, 06/03/2024 06/03/2024 Travel 05/30/2024 Refill [facility] [address] [place] [address] Jack Smith MD Refill Request (Warfarin) 05/29/2024 Telephone [facility] [address] [place] [address] Jack Smith MD Anticoagulation (Dosing Review) 05/21/2024 10:30 AM PRODUCTION PACKAGER Orders Only [facility] Alfredo [facility] [place] [address] Lab, [place] 05/21/2024 Anticoagulation (warfarin) [facility] [address] [place] [address] 1, [place] Anticoagulation 05/21/2024 Travel 05/20/2024 Travel from Last 3 Months Immunizations Name Administration Dates Next Due AMB INFLUENZA IIV3 (AGE 65+ YRS) PF (Flu Clinic Only) 04/24/2018 AMB Influenza, IIV3 (Age >=3 years)(Flu Clinic Only) 04/16/2013,04/03/2012,05/04/2010 COVID-19 VACCINE SPIKEVAX (M ODERNA 50MCG/0.5ML) 12YO+ PFS 05/10/2024,10/30/2023,05/08/2023 COVID-19 vaccine (Pfizer-Bio NTech 30mcg/0.3mL) 12YO+ BIVALENT PF, MDV 04/04/2022 COVID-19 vaccine (Pfizer-Bio NTech 30mcg/0.3mL) 12YO+ CARLITOS-SUCROSE PF, MDV 09/17/2021 COVID-19 vaccine (Pfizer-Bio NTech 30mcg/0.3mL) PF, MDV 04/26/2021,08/20/2020,07/30/2020 Influenza, High-dose Inactivated 05/23/2016,02/17,02/28/2014 Influenza, IIV3 (Age >=3 years) 04/13/2011 Influenza, Inactivated AIIV4 (Age 65+ Years) Preserv Free 05/08/2023,04/04/2022,04/02/2021,2019 Influenza, Inactivated IIV3 (Age 65+ Years) Preserv Free 05/10/2024,03/14/2019,07/04/2017 Pneumococcal Poly,23-Valent (Pneumovax) 08/06/2010 Pneumococcal conj 13-Valent [...] Answer Date Recorded PHQ-2 TOTAL SCORE 0 05/10/2024 Social Connections Answer Date Recorded Do you often feel lonely or isolated from those around you? 0 05/10/2024 Financial Resource Strain Answer Date R ecorded Difficulty of Paying Living Expenses 3 05/10/2024 Difficulty of Paying Living Expenses Not on file 05/10/2024 Food Insecurity Answer Date Recorded Do you worry your food will run out before you are able to buy more? 1 05/10/2024 Transportation Needs Answer Date Record ed Does lack of transportation keep you from medica l appointments? 1 05/10/2024 Does lack of transportation keep you from work, meetings or getting things that you need? 1 05/10/2024 Housing Stability Answer Date Recorded What is your housing situation today? 1 05/10/2024 Interpersonal Safety Answer Date Record ed Are you being hit, kicked, p ushed or yelled at (see row info)? No 07/07/2023 Interpersonal Safety Abuse - Not on file 07/07/2023 Interpersonal Safety Ambulatory Vulnerability No t on file 07/07/2023 Utilities Answer Date Recorded Do you have trouble paying f or utilities (for example, heat, electricity, water, phone)? 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 Not on file Not on [employer]man [employer] Obstetrics History Last Filed Vital Signs Vital Sign Reading Time Taken Comments Blood Pressure 128/83 06/04/2024 10:37 AM PRODUCTION PACKAGER Pulse 90 06/04/2024 10:37 AM PRODUCTION PACKAGER Temperature 36.8 C (98.2 F) 07/08/2023 8:41 AM PRODUCTION PACKAGER Respiratory Rate 18 07/08/2023 8:41 AM PRODUCTION PACKAGER Oxygen Saturation 98% 06/04/2024 10: 37 AM PRODUCTION PACKAGER Inhaled Oxygen Concentration - - Weight 93.8 kg (206 lb 12.8 oz) 024 10:37 AM PRODUCTION PACKAGER Height 170.9 cm (5' 7.28) 06/04/2024 1 0:37 AM PRODUCTION PACKAGER Body Mass Index 32.12 06/04/2024 10:37 AM PRODUCTION PACKAGER Plan of Treatment Upcoming Encounters Date Type Department Care Team (Late st Contact Info) Description 08/16/2024 2:00 PM PRODUCTION PACKAGER Orders Only [facility] [address] [facility] [address] [place] 08/29/2024 12:45 PM CDT Orders Only [facility] [address] [facility] [address] Lab[place] 09/10/2024 1:15 PM CDT Orders Only [facility] [address] [facility] [address] Lab[place] 10/08/2024 2:00 PM CDT Office Visit [facility] [address] [place] [address] [place] [address] Estela [facility] [address] [place], [place] [id number] 11/26/2024 2:00 PM CDT [facility] [place] [facility] [address] [place] [address] Health Maintenance Due Date Last Done Comments RSV vaccine for adults or (1 - 1-dose 75+ series) 2012 Depression screening for age 12+ 05/10/2025 05/10/2024, 05/08/2023, 05/08/2023, Additional history exists Medicare Wellness for age 65+ 05/11/2025, 05/08/2023, 04/04/2022, Additional history exists BMI (ht and wt on same day) for age 18+ 06/04/2025 06/04/2024, 05/10/2024, 05/08/2023, Additional history exists Tetanus booster 05/26/2031 05/26/2021, 07/20, 08/24/2005 Pneumococcal series for age 50+ Completed 5, 08/06/2010 Zoster (shingles) series for age 50+ Completed 11/21/2018, 08/28/2018 Tdap Completed 05/26/2021, 08/06/2010 COVID-19 vaccine series Completed 05/10/20, 10/30/2023, 05/08/2023, Additional history exists Influenza for age 65+ Completed 05/10/2024 , 05/08/2023, 04/04/2022, Additional history exists Medical Devices Implanted Type Area Deicer Repairer Electric Device Identifier Shelf Expiration Date Model / Serial / Lot Bone Matrix 10cc Vitoss Foam Ba2x Synth - [id number] Implanted:Qty : 1 on 04/15/2014 by Kunal Gerard MD at [facility] Right: Lumbar Vertebrae [employer] 08/17/2015 [id number]# / / [id number] Screw Lmbr Post [id number] Cnnltd - [id number] Implanted:Qty : 1 on 04/15/2014 by Kunal Gerard MD at [facility] Right: Lumbar Vertebrae Medtronic Spine/Ortho [id number]# / / Description:7.5 * 45 mm sext ant screw Screw Lmbr Post [id number] Cnnltd - [id number] Implanted:Qty : 2 on 04/15/2014 by Kunal Gerard MD at [facility] Right: Lumbar Vertebrae Medtronic Spine/Ortho [id number]# / / [id number] - [id number] Implanted:Qty : 1 on 04/15/2014 by Kunal Gerard MD at [facility] Right: Lumbar Vertebrae Medtronic 11/07/2019 [id number] / / [id number] Description:Capstone control spinal system interbody fusion device (15 mm * 27 mm * 6 degrees) Chris 40mm Titnm Sextant - [id number] Implanted:Qty : 1 on 04/15/2014 by Kunal Gerard MD at [facility] Right: Lumbar Vertebrae Medtronic Spine/Ortho [id number]# / / Screw Lmbr Post [id number] Fa Cnnltd - [id number] Implanted:Qty : 1 on 04/15/2014 by Kunal Gerard MD at [facility] Right: Lumbar Vertebrae Medtronic Spine/Ortho [id number]# / / Chirs 35mm Titnm Sextant - [id number] Implanted:Qty : 1 on 04/15/2014 by Kunal Gerard MD at [facility] Right: Lumbar Vertebrae Medtronic Spine/Ortho [id number]# / / Set Screw Lmbr Antltd - [id number] Implanted:Qty : 4 on 04/15/2014 by Kunal Gerard MD at [facility] Right: Lumbar Vertebrae Medtronic Spine/Ortho [id number]# / / Explanted Type Area Deicer Repairer Electric Device Identifier Shelf Expiration Date Model / Serial / Lot Rinku - [id number] Explanted:Qty: 1 on 04/15/2014 by Kunal Gerard MD at [facility] Right: Spine Medtronic Spine/Ortho 02/21/2019 [id number]# / / [id number] Procedures Procedure Name Priority Date/Time Associated Diagnosis Comments PROTIME-INR Routine 08/01/2024 2:15 PM PRODUCTION PACKAGER Anticoagulation monitoring, INR range 2.5-3.5 History of mitral valve replacement with mechanical valve INR,POCT Routine 07/26/2024 1:15 PM PRODUCTION PACKAGER Anticoagulation monitoring, INR range 2.5-3.5 History of mitral valve replacement with mechanical valve PROTIME-INR Routine 07/16/2024 2:43 PM PRODUCTION PACKAGER Anticoagulation monitoring, INR range 2.5-3.5 History of mitral valve replacement with mechanical valve SCAN-DIAGNOSTIC REPORT 06/03/2024 12:00 AM PRODUCTION PACKAGER INR,POCT Routine 05/21/2024 11:06 AM PRODUCTION PACKAGER Anticoagulation monitoring, INR range 2.5-3.5 History of mitral valve replacement with mechanical valve from Last 3 Months Results * (ABNORMAL) PROTIME-INR [[id number]] - Standing Order (08/01/2024 2:15 PM PRODUCTION PACKAGER) Only the most recent of2 resultswithin the time period is included. INR 3.9(H) <1.3 08/01/2024 3:19 PM [facility] PROTIME 46.0(H) 10.6 - 12.4 sec 08/01/2024 3:19 PM [facility] Blood BLOOD SPECIMEN / Unknown [facility] / Unknown 08/01/2024 2:15 PM PRODUCTION PACKAGER 08/01/2024 2:15 PM PRODUCTION PACKAGER [facility] - 08/01/2024 3:19 PM PRODUCTION PACKAGER Therapeutic Range 2.0-3.0 for most anticoagulated patients 2.5-3.5 [...] seconds if the patient is on UFH. us Jack Smith MD HEMATOLOGY Final Resu lt Performing Organization Address [facility] Co de Phone Number [facility] [address] [facility] [place] [address] * (ABNORMAL) INR - POCT [[id number]] - Standing Order (07/26/2024 1:15 PM PRODUCTION PACKAGER) Only the most recent of2 resultswithin the time period is included. INR 4.0(H) ratio [facility] Comment: INRs >2.9 may be falsely elevated in patients receiving either unfractionated Heparin or Low Molecular Weight Heparin. Follow up testing in a hospital laboratory may be helpful if clinically indicated. INR results of > or = 5.0 should be verified using the standard venipuncture procedure. Reference Range 0.9-1.1 Moderate-intensity Warfarin Therapy 2.0-3.0 Higher-intensity Warfarin Therapy 3.0-4.0 PROTHROMBIN TIMEP 48.0(H) 10.5 - 13.1 sec [facility] Comment: Point of care fingerstick Prothrombin Time/INR results may vary from venous Prothrombin Time/INR methodologies. Any results exhibiting inconsistency with the patient's clinical status should be repeated using a venous Prothrombin Time/INR method. Blood BLOOD SPECIMEN / Unknown 07/26/2024 1:15 PM PRODUCTION PACKAGER 07/26/2024 1:15 PM PRODUCTION PACKAGER us Jack Smith MD LABORATORY Final Resu lt Performing Organization Address [facility]/ZIP Co de Phone Number [facility] [address] [place] [address], [facility] [address] [place] [address] * SCAN-DIAGNOSTIC REPORT (06/03/2024 12:00 AM PRODUCTION PACKAGER) us Scanner OTHER Final Result from Last 3 Months Insurance MEDICARE PB ONLY MEDICARE PART A HB ONLY MEDICARE PART B HB ONLY [facility] SHARED SERVICES HC MEDICARE PPS Advance Directives Documents on File Type Date Recorded Patient Road Driver Expl anation Healthcare Directive 06/23/2021 022 * [...] 11:29 AM 04/18/2014 5:44 PM Care Teams Director Fixed Income Relationship Specialty Start Date End Date Jack Smith MD [address] [place] [address] PCP - General Family Practice 10/08/13 Randy Roberts MD Surgery - Orthopedics 08/12/11 Rocky Borrero [address] [facility] [place] [address] Mid Teacher 08/12/11 [facility] [address] [facility] [place] [address] 02/06/23
--- NOTE | 2024-08-13 19:41 | ED_ITS ---
HPI - General Adult General Chief complaint: Weakness Stated complaint: Dizziness/Feeling off Time Seen by Provider: 08/13/24 19:34 History of Present Illness HPI narrative: prior to lunch pt started feeling dizzy and weak with hot/chills. states he just doesnt feel well. did not take any ibu/ tylen. denies pain or SOB. 88-year-old man presenting to the emergency department along with his son. Fairly abruptly this afternoon began to feel weak and hot and chilled. He is not experiencing shortness of breath. No chest pain. No significant cough though he has a couple small coughs during time of interview. Has maybe been urinating more. No noted diarrhea. Arrives here noted to have a fever of 102.4. No abdominal pain. No back pain. No sense of palpitations. Apparently did have small emesis ?spit up? in the bathroom Related Data Home Medications ?Medication ?Instructions ?Recorded ?Confirmed atorvastatin 20 mg tablet 20 mg PO HS 12/23/21 06/05/24 celecoxib 200 mg capsule 200 mg PO DAILY 12/23/21 06/05/24 cholecalciferol (vitamin D3) 50 50 mcg PO DAILY 12/23/21 06/05/24 mcg (2,000 unit) capsule (Vitamin D3) warfarin 5 mg tablet 5 mg PO DAILY 12/23/21 06/05/24 Previous Rx's ?Medication ?Instructions ?Recorded lidocaine 5 % topical patch 1 patch topical DAILY #15 ea 11/02/23 (Lidoderm) cephalexin 500 mg capsule 500 mg PO BID #14 caps 06/05/24 Allergies Allergy/AdvReac Type Severity Reaction Status Date / Time indomethacin Allergy Intermediate Bleeding Verified 06/05/24 10:46 Sulfa (Sulfonamide Allergy Intermediate Hives Verified 06/05/24 10:46 Antibiotics) Review of Systems Status of ROS: Reports: 6 or more systems reviewed and unremarkable except as noted in History and below [facility] Medical History Osteoarthritis of right knee ?M17.11 - Unilateral primary osteoarthritis, right knee (ICD-10) SHASTA (obstructive sleep apnea) ?G47.33 - Obstructive sleep apnea (adult) (pediatric) (ICD-10) Congestive heart failure (CHF) ?I50.9 - Heart failure, unspecified (ICD-10) Hyperlipemia ?E78.5 - Hyperlipidemia, unspecified (ICD-10) Arthritis ?M19.90 - Unspecified osteoarthritis, unspecified site (ICD-10) Surgical History Hx of tonsillectomy ?Z90.89 - Acquired absence of other organs (ICD-10) H/O vasectomy ?Z98.52 - Vasectomy status (ICD-10) 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 Did not manage to collect urine. Hearing aids in place. Little hard of hearing. Fully alert. Cranial nerves 2-12 are intact. Initially hunched over in wheelchair attended to by his son. There is clear rhinorrhea. Oropharynx is moist. A couple small coughs but otherwise appears to be breathing easily. Lungs are clear. Heart in regular rate and rhythm with trace systolic murmur I think. Abdomen is soft and nontender. Lower extremities with a mild dependent edema. Compression stockings in place. Is well-perfused. Const: Vital Signs, click to edit/add: Vital Signs - 24 hr 08/13/24 19:37 08/13/24 20:26 08/13/24 20:36 Temperature 102.4 F H 102.4 F H Pulse Rate [Pulse Oximeter] 89 Respiratory Rate 16 Blood Pressure [Ri ght Upper Arm] 130/77 Pulse Oximetry 92 95 Oxygen Delivery Me thod Room Air Documenting provider has reviewed patient's vital signs: yes Course Vital Signs Vital signs: Initial Vital Signs Temperature 102.4 F H 08/13/24 19:37 Temperature Source Temporal Artery Scan 08/13/24 19:37 Pulse Rate 89 08/13/24 19:37 Respiratory Rate 16 08/13/24 19:37 Blood Pressure 130/77 08/13/24 19:37 Blood Pressure Mean 94 08/13/24 19:37 Blood Pressure Position Sitting 08/13/24 19:37 Pulse Oximetry 92 08/13/24 19:37 Oxygen Delivery Method Room Air 08/13/24 19:37 Vital Signs Temperature 102.4 F H 08/13/24 19:37 Pulse Rate 89 08/13/24 19:37 Respiratory Rate 16 08/13/24 19:37 Blood Pressure 130/77 08/13/24 19:37 Pulse Oximetry 92 08/13/24 19:37 Oxygen Delivery Method Room Air 08/13/24 19:37 Temperature 102.4 F H 08/13/24 20:36 Pulse Rate 89 08/13/24 19:37 Respiratory Rate 16 08/13/24 19:37 Blood Pressure 130/77 08/13/24 19:37 Pulse Oximetry 95 08/13/24 20:26 Oxygen Delivery Method Room Air 08/13/24 19:37 Medications Administered Medications: Discontinued Medications Generic Name Dose Route Start Last Admin Trade Name Freq PRN Reason Stop Dose Admin Sodium Chloride 500 mls @ 1,000 mls/hr 08/13/24 20:25 08/13/24 20:35 0.9 % Sodium Chloride 500 Ml IV 08/13/24 20:54 1,000 mls/hr .Q30M ONE Administration Ibuprofen 600 mg 08/13/24 20:09 08/13/24 20:15 Ibuprofen 200 Mg Tablet PO 08/13/24 20:10 600 mg ONCE ONE Administration Ketorolac Tromethamine 15 mg 08/13/24 20:25 08/13/24 20:36 Ketorolac 15 Mg/Ml Inj IVP 08/13/24 20:26 15 mg ONCE ONE Administration Ondansetron HCl 4 mg 08/13/24 20:09 08/13/24 20:15 Ondansetron Odt 4 Mg Tab PO 08/13/24 20:10 4 mg ONCE ONE Administration Ondansetron HCl 4 mg 08/13/24 20:25 08/13/24 20:35 Ondansetron 2 Mg/Ml Inj IVP 08/13/24 20:26 4 mg ONCE ONE Administration Medical Decision Making MDM Narrative Medical decision making narrative: He would like to limit interventions, evaluations. Have already collected for triple swab. Would like to collect urinalysis as well. Give some ibuprofen though singular dosing and recognize that is taking Coumadin. Will give Zofran as well. Further evaluation pending as above. With fever and considering community prevalence would suspect influenza as leading in differential. Might need evaluation further for pneumonia or urinary tract infection. Monitor for improvement of fever. Problem would appear to be infectious. Maybe infectious gastritis. Was given Zofran ibuprofen and promptly vomited. At this time also swabs return negative. Will be initiating IV fluids at this point; 500 mL of normal saline to begin with. Blood culture. Chest x-ray looking for pneumonia as well. Oximetry is little bit low relative to prior on chart review. Expanded labs. Considering sepsis; only concerning vital at this point is fever. O2 sat now on room air at 95% Anticipating handoff pending chest x-ray and labs Medical Records Medical records reviewed: Yes I reviewed the patient's medical records Lab Data Labs: Lab Results 08/13/24 08/13/24 Range/Units 19:36 20:36 WBC 20.58 H (4.50-11.00) K/uL RBC 4.47 (4.30-5.90) m/uL Hgb 13.3 L (13.5-17.5) gm/dL Hct 41.5 (37.0-53.0) % MCV 93 (80-100) fL MCH 30 (26-34) pg MCHC 32 (32-36) gm/dL RDW Coeff of [place] 15.3 (11.5-15.5) % Plt Count 120 L (140-440) K/uL Neut % (Auto) 90.2 H (42.0-72.0) % Lymph % (Auto) 5.3 L (20-44) % [place] % (Auto) 4.2 (0.0-11.0) % Eos % (Auto) 0.0 (0.0-7.0) % Baso % (Auto) 0.1 (0.0-3.0) % Neut # (Auto) 18.60 H (1.7-7.0) K/uL Lymph # (Auto) 1.10 (0.90-2.90) K/uL [place] # (Auto) 0.90 (0.00-0.90) K/UL Eos # (Auto) 0.00 (0.00-0.50) K/uL Baso # (Auto) 0.00 (0.00-0.30) K/uL Abs Immat Gran (auto) 0.00 (0.00-0.30) K/uL Imm/Tot Granulo (auto) 0.2 % SARS-CoV-2 (PCR) Negative SARS-CoV-2 (Negative) Influenza Type A (PCR) Negative PCR FLU A (Negative) Influenza Type B (PCR) Negative PCR FLU B (Negative) RSV (PCR) Negative PCR RSV (Negative) Discharge Plan Discharge Clinical Impression: Fever Prescriptions: No Action cephalexin 500 mg capsule 500 mg PO BID Qty: 14 0RF atorvastatin 20 mg tablet 20 mg PO HS Patient Comments: TAKE 1 TABLET BY MOUTH EVERY DAY warfarin 5 mg tablet 5 mg PO DAILY Patient Comments: TAKE HALF TABLET (2.5 MG) BY MOUTH EVERY MONDAY. TAKE 1 TABLET (5 MG) ALL OTHER DAYS OR DIRECTED cholecalciferol (vitamin D3) [Vitamin D3] 50 mcg (2,000 unit) capsule 50 mcg PO DAILY celecoxib 200 mg capsule 200 mg PO DAILY Patient Comments: TAKE 1 CAPSULE BY MOUTH ONCE DAILY WITH A MEAL. lidocaine [Lidoderm] 5 % adhesive patch,medicated 1 patch topical DAILY Qty: 15 0RF Rx Instructions: leave on most painful area for up to 12 hrs Follow Up/Referrals: Jack Smith MD [Primary Care Provider] -
[2024-08-13] MEDS: ONDANSETRON ODT 4 MG TAB PO (20:15)
[2024-08-13] MEDS: IBUPROFEN 200 MG TABLET 600 MG PO (20:15)
[2024-08-13 20:21] LABS: PCR FLU A Negative PCR FLU A (Negative); PCR FLU B Negative PCR FLU B (Negative); PCR RSV Negative PCR RSV (Negative); SARS PCR* Negative SARS-CoV-2 (Negative)
--- NOTE | 2024-08-13 20:25 | CRLHL7_ITS ---
For Patients: As a result of the Cures Act, medical imaging exams and procedure reports are released immediately into your electronic medical record. You may view this report before your referring provider. If you have questions, please contact your health care provider. INDICATION: Fever, cough. TECHNIQUE: Chest 2 view. COMPARISON: Chest and rib radiographs 11/02/2023. FINDINGS: Cardiovascular: Cardiomegaly. Mild pulmonary vascular congestion. Sternotomy with cardiac valve prosthesis. Left chest pacemaker with leads in stable position. Lungs and pleural spaces: Patchy opacity in the right lung base. No sign of pleural effusion. No pneumothorax identified. Bones and soft tissues: Degenerative changes of the spine. Old left rib fractures. IMPRESSION: 1. Cardiomegaly with mild pulmonary vascular congestion. 2. Patchy opacity in the right lung base may represent atelectasis or developing infiltrate. Dictated by Sanjuana Pittman MD @ 08/13/2024 10:14:36 PM (Electronically Signed)
--- OUTSIDE RECORDS SUMMARY | 2024-08-13 20:31 | XMS_ITS ---
Author Name Interface, [id number] lity Address [address] [place] [address] [address] [place] [address] Organization [facility] Address [address] [place] [address] [address] [place] [address] Care Team Providers Care Skip Hoist Engineer Name Role Phone Jovanny Richardson Unavailab le [...]
--- OUTSIDE RECORDS SUMMARY | 2024-08-13 20:31 | XMS_ITS ---
Author Name Interface, [id number] lity Address [address] [place] [address] [address] [place] [address] Organization [facility] Address [address] [place] [address] [address] [place] [address] Care Team Providers Care Diamond Driller Helper Name Role Phone Jovanny Richardson Unavailab le [...]
--- OUTSIDE RECORDS SUMMARY | 2024-08-13 20:31 | XMS_ITS | Continuity of Care Document ---
Author Organization [facility] Address [address] [place] [address] Phone Care Team Providers Care Transit Worker Name Role Phone Denis Abraham MD Unavailable [...] Available - Active Procedures Procedure Date Office/Outpatient Visit,[facility] 2013 X-Ray Exam Lwr Spine, Min 4 Views Advance Directives Directive Yes / No Effective Date File Name No Information Encounters Encounter Description Practice Location Reason(s) For Visit Diagnoses Date Provider Providers Copied on Encounter [facility], [address], [place], [place], [id number], [place] tel:[phone] [facility] No Information 2-201 5 Abraham Denis. [facility], [address] [place] [address], [address], [place], [place], [id number] , [place]. tel:[phone] Office/Outpat ient Visit,[facility] Z [facility], [address], [place], [address], [place] tel:[phone] [facility] [place] Apr- 0-201 4 Abraham Denis. [facility], [address] [place] [address], [address], [place], [place], [id number] , [place]. tel:[phone] Referring Provider: Dakota Holcomb, [address], [address] . tel:[phone] Family History Family Member Type Diagnosis Age [...]
--- OUTSIDE RECORDS SUMMARY | 2024-08-13 20:31 | XMS_ITS | CCD ---
Author Name Interface, [id number] lity Address [address] [place], [place] [address] [address] Organization [facility] Address [address] [place], [place] [address] [address] Care Team Providers Care Bridge Operator Name Role Phone Jovanny Richardson Unavailable Unavailab le Reason for Visit Encounters Medications Social History
--- OUTSIDE RECORDS SUMMARY | 2024-08-13 20:31 | XMS_ITS | CCD ---
Author Name Interface, [id number] lity Address [address] [place] [address] [address] [place] [address] Organization [facility] Address [address] [place] [address] [address] [place] [address] Care Team Providers Care Oil Well Shooter Name Role Phone Jovanny Richardson Unavailable Unavailab le Reason for Visit OV 10 MIN Encounters Date Name 03/24/2022 Melanoma Medications Date Name Route Dose Frequency Instructions Start Date End Date Status Amoxicillin Oral For dental work active Ascorbic Acid Oral active Warfarin Oral act romy Cholecalciferol Oral 2.0 active Celecoxib Oral ac tive Atorvastatin Oral active Social History Date Name Value 03/24/2022 Sex Male
--- OUTSIDE RECORDS SUMMARY | 2024-08-13 20:31 | XMS_ITS | Clinical Summary ---
Author Organization [employer] [facility] Address [address] [place] [address] Care Team Providers Care Commercial Lines Insurance Agent Name Role Phone Randy Roberts MD Unavailable [phone] Rocky Borrero Unavailable Jack Smith MD Primary Care Provider [phone] [facility] Allergies Active Allergy Reactions Criticality Noted [...] 10/21/2022 05/10/2024 Overview (10/21/2022): CT emergency room [place] with more prominent enlarged right ventricle - [...] Care Agent: Diana Vallejo Relationship: Spouse , [phone] Secondary Health Care Agent: Alexander Vallejo Relationship: [...] Type Department Care Team Description 08/06/2024 Telephone [facility] [address] [facility] [place] [address] Jack Smith MD Anticoagulation (Review update) 08/01/2024 2:00 PM BUSINESS CONTINUITY CONSULTANT Orders Only [facility] [address] [facility] [place] [address] Lab, [place] <No scans attached> 08/01/2024 Anticoagulation (warfarin) [facility] [address] [facility] [place] [address] 1, [facility] Anticoagulation 08/01/2024 Travel 07/26/2024 1:15 PM BUSINESS CONTINUITY CONSULTANT Orders Only [facility] [address] [facility] [place] [address] Lab, [place] [facility] 07/26/2024 Anticoagulation (warfarin) [facility] [address] [facility] [place] [address] 1, [facility] Anticoagulation (lab) 07/26/2024 Travel 07/16/2024 Anticoagulation (warfarin) [facility] [address] [facility] [place] [address] 1, [facility] Anticoagulation 07/16/2024 Travel 06/04/2024 10:30 AM BUSINESS CONTINUITY CONSULTANT Office Visit [facility] [address] [place] [address] Onesimo Clayton MD Sleep Follow-up 06/03/2024 Orders Only [facility] Scanner 1 scan: (1-Ord) RESMED, COMPLIANCE REPORT, 06/03/2024 06/03/2024 Travel 05/30/2024 Refill [facility] [address] [place] [address] Jack Smith MD Refill Request (Warfarin) 05/29/2024 Telephone [facility] [address] [place] [address] Jack Smith MD Anticoagulation (Dosing Review) 05/21/2024 10:30 AM BUSINESS CONTINUITY CONSULTANT Orders Only [facility] Alfredo [facility] [place] [address] Lab, [place] [facility] 05/21/2024 Anticoagulation (warfarin) [facility] [address] [place] [address] 1, [facility] Anticoagulation 05/21/2024 Travel [...] on file Legal Sex Male 6:17 AM BUSINESS CONTINUITY CONSULTANT Gender Identity Not on file Sexual Orientation Not on file 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 Not on file Not on [employer] Ob[employer]etrics History Last Filed Vital Signs Vital Sign Reading Time Taken Comments Blood Pressure 128/83 06/04/2024 10:37 AM BUSINESS CONTINUITY CONSULTANT Pulse 90 06/04/2024 10:37 AM BUSINESS CONTINUITY CONSULTANT Temperature 36.8 C (98.2 F) 07/08/2023 8:41 AM BUSINESS CONTINUITY CONSULTANT Respiratory Rate 18 07/08/2023 8:41 AM BUSINESS CONTINUITY CONSULTANT Oxygen Saturation 98% 06/04/2024 10: 37 AM BUSINESS CONTINUITY CONSULTANT Inhaled Oxygen Concentration - - Weight 93.8 kg (206 lb 12.8 oz) 024 10:37 AM BUSINESS CONTINUITY CONSULTANT Height 170.9 cm (5' 7.28) 06/04/2024 1 0:37 AM BUSINESS CONTINUITY CONSULTANT Body Mass Index 32.12 06/04/2024 10:37 AM BUSINESS CONTINUITY CONSULTANT Plan of Treatment Upcoming Encounters Date Type Department Care Team (Late st Contact Info) Description 08/16/2024 2:00 PM BUSINESS CONTINUITY CONSULTANT Orders Only [facility] [address] [facility] [place] [address] Lab, [place] 08/29/2024 12:45 PM CDT Orders Only [facility] [address] [facility] [place] [address] Lab, [place] 09/10/2024 1:15 PM CDT Orders Only [facility] [address] [facility] [place] [address] Lab, [place] 10/08/2024 2:00 PM CDT Office Visit [facility] [address] [place] [address] [place] [address] [address]ela [facility] [address] [place], [place] [id number] 11/26/2024 2:00 PM CDT [facility] [address] [place] [address] Health Maintenance Due Date Last [...] history exists Medical Devices Implanted Type Area Salesperson Shoes Device Identifier Shelf Expiration Date Model / Serial / Lot Bone Matrix 10cc Vitoss Foam Ba2x Synth - [id number] Implanted:Qty : 1 on 04/15/2014 by Kunal Gerard MD at [facility] Right: Lumbar Vertebrae [employer] 08/17/2015 [id number]# / / [id number] Screw Lmbr Post [id number] Cnnltd - [id number] Implanted:Qty : 1 on 04/15/2014 by Kunal Gerard MD at [facility] Right: Lumbar Vertebrae [employer] Sp[employer]/Ortho [id number]# / / Description:7.5 * 45 mm sext ant screw Screw Lmbr Post [id number] Cnnltd - [id number] Implanted:Qty : 2 on 04/15/2014 by Kunal Gerard MD at [facility] Right: Lumbar Vertebrae [employer] Spine/Ortho [id number]# / / [id number] - [id number] Implanted:Qty : 1 on 04/15/2014 by Kunal Gerard MD at [facility] Right: Lumbar Vertebrae Med[employer]onic 11/07/2019 [id number] / / [id number] Description:Capstone control spinal system interbody fusion device (15 mm * 27 mm * 6 degrees) Chris 40mm Titnm Sextant - [id number] Implanted:Qty : 1 on 04/15/2014 by Kunal Gerard MD at [facility] Right: Lumbar Vertebrae [employer] Spine/Ortho [id number]# / / Screw Lmbr Post 7.4x53bayy Fa Cnnltd - [id number] Implanted:Qty : 1 on 04/15/2014 by Kunal Gerard MD at [facility] Right: Lumbar Vertebrae [employer] Spine/Ortho [id number]# / / Chris 35mm Titnm Sextant - [id number] Implanted:Qty : 1 on 04/15/2014 by Kunal Gerard MD at [facility] Right: Lumbar Vertebrae [employer] Spine/Ortho [id number]# / / Set Screw Lmbr Antltd - [id number] Implanted:Qty : 4 on 04/15/2014 by Kunal Gerard MD at [facility] Right: Lumbar Vertebrae [employer] Spine/Ortho [id number]# / / Explanted Type Area Salesperson Shoes Device Identifier Shelf Expiration Date Model / Serial / Lot Rinku - [id number] Explanted:Qty: 1 on 04/15/2014 by Kunal Gerard MD at [facility] Right: Spine Medtronic Spine/Ortho 02/21/2019 [id number]# / / [id number] Procedures Procedure Name Priority Date/Time Associated Diagnosis Comments PROTIME-INR Routine 08/01/2024 2:15 PM BUSINESS CONTINUITY CONSULTANT Anticoagulation monitoring, INR range 2.5-3.5 History of mitral valve replacement with mechanical valve INR,POCT Routine 07/26/2024 1:15 PM BUSINESS CONTINUITY CONSULTANT Anticoagulation monitoring, INR range 2.5-3.5 History of mitral valve replacement with mechanical valve PROTIME-INR Routine 07/16/2024 2:43 PM BUSINESS CONTINUITY CONSULTANT Anticoagulation monitoring, INR range 2.5-3.5 History of mitral valve replacement with mechanical valve SCAN-DIAGNOSTIC REPORT 06/03/2024 12:00 AM BUSINESS CONTINUITY CONSULTANT INR,POCT Routine 05/21/2024 11:06 AM BUSINESS CONTINUITY CONSULTANT Anticoagulation monitoring, INR range 2.5-3.5 History of mitral valve replacement with mechanical valve from Last 3 Months Results * (ABNORMAL) PROTIME-INR [[id number]] - Standing Order (08/01/2024 2:15 PM BUSINESS CONTINUITY CONSULTANT) Only the most recent of2 resultswithin the time period is included. INR 3.9(H) <1.3 08/01/2024 3:19 PM [facility] PROTIME 46.0(H) 10.6 - 12.4 sec 08/01/2024 3:19 PM [facility] Blood BLOOD SPECIMEN / Unknown [facility] / Unknown 08/01/2024 2:15 PM BUSINESS CONTINUITY CONSULTANT 08/01/2024 2:15 PM BUSINESS CONTINUITY CONSULTANT [facility]ORATORY - 08/01/2024 3:19 PM BUSINESS CONTINUITY CONSULTANT Therapeutic Range 2.0-3.0 for most anticoagulated patients [...] HEMATOLOGY Final Resu lt Performing Organization Address [facility] Co de Phone Number [facility] [address] [facility] [place] [address] * (ABNORMAL) INR - POCT [[id number]] - Standing Order (07/26/2024 1:15 PM BUSINESS CONTINUITY CONSULTANT) Only the most recent of2 resultswithin the time period is included. INR 4.0(H) ratio [facility] Comment: INRs >2.9 may be falsely elevated [...] PROTHROMBIN TIMEP 48.0(H) 10.5 - 13.1 sec [facility] Comment: Point of care fingerstick Prothrombin Time/INR results may vary from venous Prothrombin Time/INR methodologies. Any results exhibiting inconsistency with the patient's clinical status should be repeated using a venous Prothrombin Time/INR method. Blood BLOOD SPECIMEN / Unknown 07/26/2024 1:15 PM BUSINESS CONTINUITY CONSULTANT 07/26/2024 1:15 PM BUSINESS CONTINUITY CONSULTANT us Jack Smith MD LABORATORY Final Resu lt Performing Organization Address [facility]/ZIP Co de Phone Number [facility] [address] [place] [address], [facility] [address] [place] [address] * SCAN-DIAGNOSTIC REPORT (06/03/2024 12:00 AM BUSINESS CONTINUITY CONSULTANT) us Scanner OTHER Final Result from Last 3 Months Insurance MEDICARE PB ONLY MEDICARE PART A HB ONLY MEDICARE PART B HB ONLY [facility] HC MEDICARE PPS Advance Directives Documents on File Type Date Recorded Patient Glass Blowing Instructor Expl anation Healthcare Directive 06/23/2021 022 * [...] 11:29 AM 04/18/2014 5:44 PM Care Teams Commercial Lines Insurance Agent Relationship Specialty Start Date End Date Jack Smith MD [address] [place] [address] PCP - General Family Practice 10/08/13 Randy Roberts MD Surgery - Orthopedics 08/12/11 Rocky Borrero [address] [place] [address] Reimbursement Rep 08/12/11 [facility] [address] [place] [facility] [place] [address] 02/06/23
[2024-08-13] MEDS: 0.9 % SODIUM CHLORIDE 500 ML 500 ML 1000 ML IV (20:35)
[2024-08-13] MEDS: ONDANSETRON 2 MG/ML inj 4 MG IVP (20:35)
[2024-08-13] MEDS: KETOROLAC 15 MG/ML inj IVP (20:36)
[2024-08-13 20:45] LABS: Basophils Percent Auto 0.1 % (0.0-3.0); Hematocrit 41.5 % (37.0-53.0); Hemoglobin* 13.3 gm/dL (13.5-17.5); Immature Granulocytes Pct Auto 0.2 %; Lymphocytes Percent Auto 5.3 % (20-44); Mean Corpuscular HGB Conc 32 gm/dL (32-36); Mean Corpuscular Hemoglobin 30 pg (26-34); Mean Corpuscular Volume 93 fL (80-100); Monocytes Percent Auto 4.2 % (0.0-11.0); Neutrophils Percent Auto 90.2 % (42.0-72.0); Platelet Count* 120 K/uL (140-440); RDW Coefficient of Variation % 15.3 % (11.5-15.5); Red Blood Count 4.47 m/uL (4.30-5.90); White Blood Count* 20.58 K/uL (4.50-11.00)
[2024-08-13 20:52] LABS: Slide Review Reflex No
[2024-08-13 20:57] LABS: Chloride* 100 mmol/L (96-114); Potassium* 5.4 mmol/L (3.6-5.1); Sodium* 135 mmol/L (135-149)
[2024-08-13 20:59] LABS: Blood Urea Nitrogen* 39 mg/dL (7-30); Creatinine* 1.4 mg/dL (0.5-1.5); Est. Creatinine Clearance* 37.88; Estimated Glomerular Filt Rate 49 ml/min
[2024-08-13 21:00] LABS: Anion Gap 11 mEq/L (7-15); Calcium* 9.1 mg/dL (8.4-10.6); Carbon Dioxide* 24 mmol/L (20-32); Glucose* 154 mg/dL (60-115); INR 2.98 (0.91-1.10); Prothrombin Time 32.2 Seconds
[2024-08-13 21:04] LABS: Lactate* 1.4 mmol/L (0.5-1.9)
[2024-08-13 21:17] LABS: NT Pro B Type NatriureticPept* 5770 pg/mL
[2024-08-13 21:41] LABS: Appearance Urine Clear (Clear); Bilirubin Urine Negative (Negative); Blood Urine Trace-intact (Negative); Color Urine Yellow (Yellow); Glucose Urine Negative (Negative); Ketones Urine Negative (Negative); Leukocyte Esterase Urine Negative (Negative); Nitrite Urine Negative (Negative); Protein Urine 1+ (Negative); Urobilinogen Urine 0.2 (0.2-1.0); pH Urine 5.5 (5.0-8.5)
[2024-08-13 21:50] LABS: Bacteria Urine Few; Fine Granular Casts Urine Few; Squamous Epithelial Cell Urine Few (None-Few)
--- NOTE | 2024-08-13 21:50 | CRLHL7_ITS ---
For Patients: As a result of the Century Cures Act, medical imaging exams and procedure reports are released immediately into your electronic medical record. You may view this report before your referring provider. If you have questions, please contact your health care provider. INDICATION: Fever and sepsis. TECHNIQUE: CT chest, abdomen and pelvis acquired 91 cc Omnipaque 370 IV contrast. Multiplanar reformats performed including axial MIP reconstructions of the chest. COMPARISON: CT chest 11/13/2023. FINDINGS: CHEST: Cardiovascular structures: Moderate cardiomegaly. No pericardial effusion. Coronary artery calcifications in addition to calcifications of the aortic root. No thoracic aortic aneurysm. Main pulmonary artery normal in caliber. Mediastinum and [place]: Prominent mediastinal lymph nodes are grossly unchanged. Lungs and pleura: No pulmonary consolidation. No pleural effusion or pneumothorax. Bibasilar atelectasis. Right lower lobe nodules measuring 4 mm (series 3, im images 36 and age 47), unchanged. No new or suspicious pulmonary nodule. No pulmonary mass. Chest wall and axilla: No suspicious chest wall fluid collection or abscess. No axillary lymphadenopathy. Bones: No acute abnormality. Chronic left rib fractures. ABDOMEN AND PELVIS: Liver: Unremarkable. Gallbladder and bile ducts: Cholelithiasis. No pericholecystic fluid or biliary dilatation. Pancreas: Unremarkable. Spleen: Unremarkable. Adrenal glands: Unremarkable. Kidneys: Mild left greater than right perinephric stranding, unchanged. Tiny punctate nonobstructing renal calculi bilaterally measuring 1 mm. No hydronephrosis or hydroureter. GI tract: Small hiatal hernia. No bowel obstruction. Mild fecalization of distal small bowel loops likely reflecting sequelae of delayed intestinal transit. Mild ascending colonic wall thickening. No CT evidence of acute appendicitis. Vascular structures: Atherosclerotic vascular calcifications. No abdominal aortic aneurysm. Lymph nodes: Prominent retroperitoneal lymph nodes with enlarged left periaortic lymph node measuring up to 1.0 cm in short axis (series 2, image 193), increased in size compared to prior. Peritoneum/Retroperitoneum/Abdominal Wall: No ascites or pneumoperitoneum. Pelvic Organs: Circumferential bladder wall thickening. Bones and superficial soft tissues: No acute abnormality. IMPRESSION: 1. Circumferential bladder wall thickening. Correlate for cystitis. 2. Mild ascending colonic wall thickening may reflect sequela of mild infectious/inflammatory colitis. 3. Cholelithiasis without discrete CT evidence of acute cholecystitis. 4. Interval increase in size of prominent retroperitoneal lymph nodes with largest measuring up to 1.0 cm, nonspecific. 5. Bilateral nonobstructing renal calculi measuring 1 mm. 6. Moderate cardiomegaly. Please note that all CT scans at this facility use dose modulation, iterative reconstruction, and/or weight-based dosing when appropriate to reduce radiation dose to as low as reasonably achievable. Dictated by Gen Hoffman MD @ 08/13/2024 11:04:25 PM (Electronically Signed)
--- NOTE | 2024-08-13 21:55 | P.IMHP_ITS ---
Hospitalist- H&P: HPI History of Present Illness Date Seen: 08/13/24 Chief complaint: Dizziness/Feeling off Narrative: Yo Vallejo is a 88 year old male with [place] mitral valve replacement on warfarin and pacemaker for AFib and intermittent heart block admitted through the emergency department with onset around 830 this morning of feeling ill. He reported feeling off balance, mental confusion, fatigue and malaise and fever and chills. He got worse as the day went on so he came to the emergency room this evening. He has had some cough with this. No upper respiratory symptoms, sore throat or congestion. He is not aware of significant dyspnea. No chest pain. He did have an emesis after he came to the emergency department but not prior to that. He is not having abdominal pain. He reports his urination has been more frequent than usual. No diarrhea. He has had no known exposures. He reports he has otherwise been relatively healthy recently. Review of Systems Narrative: Prior to the onset of symptoms today he was feeling well. [facility] Medical History (Updated 08/13/24 @ 22:28 by Man Greenfield MD) Melanoma ?C43.9 - Malignant melanoma of skin, unspecified (ICD-10) Chronic anticoagulation ?Z79.01 - long-term (current) use of anticoagulants (ICD-10) Lumbar spinal stenosis ?M48.061 - Spinal stenosis, lumbar region without neurogenic claudication (ICD-10) Atrial fibrillation ?I48.91 - Unspecified atrial fibrillation (ICD-10) Sepsis ?A41.9 - Sepsis, unspecified organism (ICD-10) Osteoarthritis of right knee ?M17.11 - Unilateral primary osteoarthritis, right knee (ICD-10) SHASTA (obstructive sleep apnea) ?G47.33 - Obstructive sleep apnea (adult) (pediatric) (ICD-10) Congestive heart failure (CHF) ?I50.9 - Heart failure, unspecified (ICD-10) Hyperlipemia ?E78.5 - Hyperlipidemia, unspecified (ICD-10) Arthritis ?M19.90 - Unspecified osteoarthritis, unspecified site (ICD-10) Surgical History (Updated 08/13/24 @ 22:26 by Man Greenfield MD) History of lumbar surgery ?Z98.890 - Other specified postprocedural states (ICD-10) Status post placement of cardiac pacemaker ?Z95.0 - Presence of cardiac pacemaker (ICD-10) Hx of tonsillectomy ?Z90.89 - Acquired absence of other organs (ICD-10) H/O vasectomy ?Z98.52 - Vasectomy status (ICD-10) 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 He has a son, Alexander, in [place] and a daughter, Janeth, in [place]. She is healthcare power of disability attorney. Code status is DNR. Does not smoke. He rarely drinks alcohol. Smoking Status: Never smoker Second hand tobacco smoke exposure: No How often do you have a drink containing alcohol: never How often do you have six or more drinks on one occasion: Never AUDIT-C Alcohol total score: 0 Non-prescribed substance use: denies use service: No Meds Home Medications and Allergies Home Medications ?Medication ?Instructions ?Recorded ?Confirmed ?Type atorvastatin 20 mg tablet 20 mg PO HS 12/23/21 06/05/24 History celecoxib 200 mg capsule 200 mg PO DAILY 12/23/21 06/05/24 History cholecalciferol (vitamin D3) 50 50 mcg PO DAILY 12/23/21 06/05/24 History mcg (2,000 unit) capsule (Vitamin D3) warfarin 5 mg tablet 5 mg PO DAILY 12/23/21 06/05/24 History Allergies Allergy/AdvReac Type Severity Reaction Status Date / Time indomethacin Allergy Intermediate Bleeding Verified 06/05/24 10:46 Sulfa (Sulfonamide Allergy Intermediate Hives Verified 06/05/24 10:46 Antibiotics) Exam Narrative: Exam Narrative: He is alert and appears in no distress. Head is without trauma. Eyes normal. Sclerae nonicteric. Oropharynx with dry mucous membranes. Otherwise normal. Neck is supple without mass or adenopathy. Respirations with a rare basilar crackle otherwise clear without wheezing rales or consolidation. Cardiovascular: S1, S2, 2/6 systolic murmur heard best at the left lower sternal border. Regular rate and rhythm. Abdomen: Bowel sounds are active. Abdomen is soft with mild right upper quadrant tenderness. No mass. No peritonitis. External genitalia normal. Extremities normal. He has mild venous stasis skin changes, primarily brawny induration. No significant erythema or ulceration on his lower extremities. Intact pedal pulses. Capillary refill in his feet is somewhat sluggish. Feet are cool to touch. Capillary refill in his fingers is better. Const: Vital Signs, click to edit/add: Vital Signs - 24 hr 08/13/24 19:37 08/13/24 19:39 08/13/24 19:40 Temperature 102.4 F H Pulse Rate 76 75 Pulse Rate [Pulse Oximeter] 89 Respiratory Rate 16 Blood Pressure 130/72 Blood Pressure [Ri ght Upper Arm] 130/77 Pulse Oximetry 92 96 92 Oxygen Delivery Me thod Room Air 08/13/24 20:16 08/13/24 20:26 08/13/24 20:30 Temperature Pulse Rate 74 64 Pulse Rate [Pulse Oximeter] Respiratory Rate Blood Pressure Blood Pressure [Ri ght Upper Arm] Pulse Oximetry 96 95 96 Oxygen Delivery Me thod 08/13/24 20:36 08/13/24 20:57 08/13/24 21:00 Temperature 102.4 F H Pulse Rate 61 62 Pulse Rate [Pulse Oximeter] Respiratory Rate Blood Pressure Blood Pressure [Ri ght Upper Arm] Pulse Oximetry 93 93 Oxygen Delivery Me thod 08/13/24 21:04 08/13/24 21:06 08/13/24 21:06 Temperature 103 F H Pulse Rate 60 60 60 Pulse Rate [Pulse Oximeter] Respiratory Rate 16 Blood Pressure 106/57 L Blood Pressure [Ri ght Upper Arm] Pulse Oximetry 93 95 94 Oxygen Delivery Me thod 08/13/24 21:15 08/13/24 21:30 08/13/24 21:32 Temperature Pulse Rate 60 63 54 L Pulse Rate [Pulse Oximeter] Respiratory Rate Blood Pressure Blood Pressure [Ri ght Upper Arm] Pulse Oximetry 94 96 95 Oxygen Delivery Me thod 08/13/24 21:34 Temperature Pulse Rate 59 L Pulse Rate [Pulse Oximeter] Respiratory Rate Blood Pressure 92/51 L Blood Pressure [Ri ght Upper Arm] Pulse Oximetry 95 Oxygen Delivery Me thod Documenting provider has reviewed patient's vital signs: yes Hospitalist - H&P: Result Labs Labs: Short CBC 08/13/24 Range/Units 20:36 WBC 20.58 H (4.50-11.00) K/uL Hgb 13.3 L (13.5-17.5) gm/dL Hct 41.5 (37.0-53.0) % Plt Count 120 L (140-440) K/uL BMP 08/13/24 20:35 Sodium 135 Potassium 5.4 H Chloride 100 Carbon Dioxide 24 BUN 39 H Creatinine 1.4 Glucose 154 H Calcium 9.1 Urine 08/13/24 Range/Units 20:09 Urine Color Yellow (Yellow) Urine Appearance Clear (Clear) Urine pH 5.5 (5.0-8.5) Ur Specific [place] 1.020 (1.000-1.030) Urine Protein 1+ A (Negative) Urine Glucose (UA) Negative (Negative) Imaging Chest x-ray: Attestation: I have reviewed the pertinent imaging results. (Possible right lower lobe infiltrate. Possible vascular congestion.) Radiologist's impression: Pending Assessment and Plan Assessment and plan (1) Sepsis: Problem comment: Onset on the day of admission of fever (103F), hypotension (92/51), EV (creatinine 1.1-1.4 and potassium 5.4), altered mental status. Pending further evaluation for the source of sepsis start fluid resuscitation and broad-spectrum antibiotics. Concerns include pneumonia, UTI, endocarditis. CT scan pending. Cultures pending. Initiate broad-spectrum antibiotics. Status: Acute (2) Chronic anticoagulation: Problem comment: Warfarin 5 mg 3 days a week and 2.5 mg 4 days a week for target INR of 2.5-3.5 due to mechanical mitral valve and AFib. Daily INR on antibiotics Status: Acute (3) H/O mitral valve replacement: Problem comment: Repeat echocardiogram Echocardiogram from June 2023: Final Impressions: 1. Normal LV size, mildly increased wall thickness, low normal global systolic function with an estimated EF of 50 - 55%. 2. Moderately enlarged left atrium. 3. Right ventricular cavity size is mildly enlarged, global systolic RV function is normal. 4. The aortic valve is sclerotic, mild stenosis and mild regurgitation. 5. The mitral valve is functioning [address] Rasta MVR and mean gradient 3 mmHg at hr of 53 bpm, trace mitral regurgitation. 6. The aortic sinus is normal for age/sex/bsa with a maximal diameter of 4.1 cm. Status: Acute (4) Congestive heart failure (CHF): Problem comment: Caution with fluid resuscitation due to heart failure risk. Status: Acute Plan 88-year-old male with onset earlier today of weakness altered mental status, acute kidney injury with hyperkalemia, fever and chills. Now hypotensive. Receiving fluid boluses. Broad-spectrum antibiotics. CT chest abdomen and pelvis and echocardiogram pending. Broad differential for this infection including pneumonia, UTI, bacteremia, endocarditis. Patient requiring close monitoring for management of sepsis in light of heart failure. Total Time Spent Total Time Spent: Total time spent today is 90 minutes in critical care including coordination of care, reviewing outside medical records, discussion with other providers, patient and son ongoing plan of care and serious illness.
[2024-08-13] MEDS: AZITHROMYCIN 250 MG TABLET 500 MG PO (22:00)
[2024-08-13] MEDS: PIPERACILLIN/TAZOBACTAM 3.375 GM in 0.9 % SODIUM CHLORIDE Mini-bag 100 ML IVPB (22:00)
[2024-08-13] MEDS: 0.9 % SODIUM CHLORIDE 1000 ml 1,000 ML IV (22:01)
[2024-08-13 22:39] LABS: Legionella pneumo Ag Urine L. pneumo Negative (Negative); S pneumo Ag Urine S. pneumo Negative (Negative)
[2024-08-13 22:59] LABS: Albumin* 4.4 g/dL (3.3-5.0)
[2024-08-13 23:01] LABS: Bilirubin Direct* 0.8 mg/dL (0.0-0.5); Bilirubin Total* 2.1 mg/dL (0.1-1.5)
[2024-08-13 23:02] LABS: Alanine Aminotransferase* 26 U/L (4-50); Alkaline Phosphatase* 70 U/L (40-150); Aspartate Amino Transferase* 48 U/L (12-35); Magnesium* 1.9 mg/dL (1.5-2.6); Total Protein* 7.2 g/dL (6.0-8.3)
[2024-08-13] MEDS: LACTATED RINGERS 1000 ML 1,000 ML 75 ML IV (23:10)
[2024-08-13] MEDS: VANCOMYCIN 1.5 GM/300 ML 1.5 GM/300 ML PIGGYBACK IVPB (23:13)
[2024-08-13 23:14] LABS: Troponin I* 0.05 ng/mL (0.01-0.04)
[2024-08-14] VITALS (12 sets, daily range): BP systolic 96–117; BP diastolic 54–82; PULSE 60–83; RESP 16–22; TEMP 36.5–37.5; O2SAT 95–98
[2024-08-14] MEDS: PIPERACILLIN/TAZOBACTAM 2.25 GM in 0.9 % SODIUM CHLORIDE Mini-bag 100 ML IVPB ×4 (04:28→21:24)
--- NOTE | 2024-08-14 06:05 | PC.NURSE ---
Pt arrived to floor at 2233. Pt alert and oriented. Pt had no complaints of pain. Pt up with assist if one with gait belt and cane. Pt slept most of night. Pt hypotensive; see intervention. Pt's son at bedside.
[2024-08-14 06:25] LABS: Basophils Percent Auto 0.1 % (0.0-3.0); Hematocrit 36.7 % (37.0-53.0); Hemoglobin* 11.8 gm/dL (13.5-17.5); Immature Granulocytes Pct Auto 0.3 %; Lymphocytes Percent Auto 7.2 % (20-44); Mean Corpuscular HGB Conc 32 gm/dL (32-36); Mean Corpuscular Hemoglobin 30 pg (26-34); Mean Corpuscular Volume 93 fL (80-100); Monocytes Percent Auto 5.4 % (0.0-11.0); Platelet Count* 84 K/uL (140-440); RDW Coefficient of Variation % 15.5 % (11.5-15.5); Red Blood Count 3.94 m/uL (4.30-5.90); White Blood Count* 15.04 K/uL (4.50-11.00)
[2024-08-14 06:39] LABS: Slide Review Reflex No
[2024-08-14 06:55] LABS: Chloride* 103 mmol/L (96-114); Potassium* 4.3 mmol/L (3.6-5.1); Sodium* 133 mmol/L (135-149)
[2024-08-14 06:57] LABS: Blood Urea Nitrogen* 41 mg/dL (7-30); Creatinine* 1.5 mg/dL (0.5-1.5); Estimated Glomerular Filt Rate 45 ml/min
[2024-08-14 06:58] LABS: Anion Gap 8 mEq/L (7-15); Calcium* 8.3 mg/dL (8.4-10.6); Carbon Dioxide* 22 mmol/L (20-32); Glucose* 123 mg/dL (60-115)
[2024-08-14 08:26] LABS: INR 3.61 (0.91-1.10); Prothrombin Time 37.3 Seconds
[2024-08-14] MEDS: SODIUM CHLORIDE 0.9 % (FLUSH) 10 ML SYRINGE 5 ML IVF ×2 (10:45→21:51)
[2024-08-14] MEDS: LACTATED RINGERS 1000 ML 1,000 ML 75 ML IV (14:00)
--- NOTE | 2024-08-14 14:41 | PM.IMPN1 ---
Progress Note: A&P Assessment and plan (1) Sepsis: Problem details: -08/13/2024: Onset on the day of admission of fever (103F), hypotension (92/51), EV (creatinine 1.1-1.4 and potassium 5.4), altered mental status. Pending further evaluation for the source of sepsis start fluid resuscitation and broad-spectrum antibiotics. Concerns include pneumonia, UTI, endocarditis. CT scan pending. Cultures pending. Initiate broad-spectrum antibiotics. -08/14/2024: Much improved. Ordered TTE. Status: Acute (2) Chronic anticoagulation: Problem details: Warfarin 5 mg 3 days a week and 2.5 mg 4 days a week for target INR of 2.5-3.5 due to mechanical mitral valve and AFib. Daily INR on antibiotics Status: Acute (3) H/O mitral valve replacement: Problem details: Repeat echocardiogram Echocardiogram from June 2023: Final Impressions: 1. Normal LV size, mildly increased wall thickness, low normal global systolic function with an estimated EF of 50 - 55%. 2. Moderately enlarged left atrium. 3. Right ventricular cavity size is mildly enlarged, global systolic RV function is normal. 4. The aortic valve is sclerotic, mild stenosis and mild regurgitation. 5. The mitral valve is functioning [address] Rasta MVR and mean gradient 3 mmHg at hr of 53 bpm, trace mitral regurgitation. 6. The aortic sinus is normal for age/sex/bsa with a maximal diameter of 4.1 cm. Status: Acute (4) Congestive heart failure (CHF): Problem details: Caution with fluid resuscitation due to heart failure risk. Status: Acute Plan 1. Reviewed impression and recommendations with patient and son 2. Answered their questions 3. They are agreeable with above stated plans and recommendations Time Spent With Patient Total time spent: 50 Subjective Date Seen: 08/14/24 Interval history: Admission history of present illness: ?88 year old male with [place] mitral valve replacement on warfarin and pacemaker for AFib and intermittent heart block admitted through the emergency department with onset around 830 this morning of feeling ill. He reported feeling off balance, mental confusion, fatigue and malaise and fever and chills. He got worse as the day went on so he came to the emergency room this evening. He has had some cough with this. No upper respiratory symptoms, sore throat or congestion. He is not aware of significant dyspnea. No chest pain. He did have an emesis after he came to the emergency department but not prior to that. He is not having abdominal pain. He reports his urination has been more frequent than usual. No diarrhea. He has had no known exposures. He reports he has otherwise been relatively healthy recently. 08/14/2024: Hospital day 2. He feels much improved compared to yesterday. More aware and less tired and fatigued. Denies feeling off balance. No longer confused. Denies myalgias or arthralgias. Denies malaise, fevers, rigors, diaphoresis. Chronic constipation with improved urination, with history of sense of incomplete voiding in the past. No other systemic or localizing symptoms at this time. Exam Narrative: Exam Narrative: Examined patient in his hospital room. Sitting in recliner chair at bedside. Appears comfortable and in no acute distress. Vision and hearing are adequate. Alert and oriented x3. Lungs are clear to auscultation without wheezing, rhonchi, rales. Heart tones with regular rhythm, normal S1-S2. Prosthetic mitral valve sounds are clear. Abdomen with active bowel sounds, soft, nontender. No rebound or guarding. Extremities without edema. Skin is dry and intact without rashes. Const: Vital Signs, click to edit/add: Vital Signs - 24 hr 08/13/24 19:37 08/13/24 19:39 08/13/24 19:40 Temperature 102.4 F H Pulse Rate 76 75 Pulse Rate [Pulse Oximeter] 89 Respiratory Rate 16 Blood Pressure 130/72 Blood Pressure [Ri ght Arm] Blood Pressure [Ri ght Upper Arm] 130/77 Pulse Oximetry 92 96 92 Oxygen Delivery Me thod Room Air 08/13/24 20:16 08/13/24 20:26 08/13/24 20:30 Temperature Pulse Rate 74 64 Pulse Rate [Pulse Oximeter] Respiratory Rate Blood Pressure Blood Pressure [Ri ght Arm] Blood Pressure [Ri ght Upper Arm] Pulse Oximetry 96 95 96 Oxygen Delivery Me thod 08/13/24 20:36 08/13/24 20:57 08/13/24 21:00 Temperature 102.4 F H Pulse Rate 61 62 Pulse Rate [Pulse Oximeter] Respiratory Rate Blood Pressure Blood Pressure [Ri ght Arm] Blood Pressure [Ri ght Upper Arm] Pulse Oximetry 93 93 Oxygen Delivery Me thod 08/13/24 21:04 08/13/24 21:06 08/13/24 21:06 Temperature 103 F H Pulse Rate 60 60 60 Pulse Rate [Pulse Oximeter] Respiratory Rate 16 Blood Pressure 106/57 L Blood Pressure [Ri ght Arm] Blood Pressure [Ri ght Upper Arm] Pulse Oximetry 93 95 94 Oxygen Delivery Me thod 08/13/24 21:15 08/13/24 21:30 08/13/24 21:32 Temperature Pulse Rate 60 63 54 L Pulse Rate [Pulse Oximeter] Respiratory Rate Blood Pressure Blood Pressure [Ri ght Arm] Blood Pressure [Ri ght Upper Arm] Pulse Oximetry 94 96 95 Oxygen Delivery Me thod 08/13/24 21:34 08/13/24 22:33 08/13/24 23:00 Temperature 98.8 F Pulse Rate 59 L Pulse Rate [Pulse Oximeter] 63 Respiratory Rate 18 Blood Pressure 92/51 L Blood Pressure [Ri ght Arm] 85/53 L Blood Pressure [Ri ght Upper Arm] Pulse Oximetry 95 96 96 Oxygen Delivery Me thod Room Air 08/13/24 23:00 08/13/24 23:00 08/13/24 23:00 Temperature Pulse Rate 64 Pulse Rate [Pulse Oximeter] Respiratory Rate 18 Blood Pressure Blood Pressure [Ri ght Arm] 100/70 Blood Pressure [Ri ght Upper Arm] Pulse Oximetry 96 Oxygen Delivery Me thod Room Air 08/14/24 00:08 08/14/24 00:56 08/14/24 01:00 Temperature Pulse Rate Pulse Rate [Pulse Oximeter] Respiratory Rate 18 Blood Pressure Blood Pressure [Ri ght Arm] 96/77 104/55 L Blood Pressure [Ri ght Upper Arm] Pulse Oximetry 96 Oxygen Delivery Me thod Room Air 08/14/24 02:00 08/14/24 03:00 08/14/24 04:26 Temperature 99.5 F Pulse Rate Pulse Rate [Pulse Oximeter] 60 Respiratory Rate 18 Blood Pressure Blood Pressure [Ri ght Arm] 110/60 113/60 106/56 L Blood Pressure [Ri ght Upper Arm] Pulse Oximetry 96 Oxygen Delivery Me thod Room Air 08/14/24 05:00 08/14/24 07:00 08/14/24 07:00 Temperature Pulse Rate 63 Pulse Rate [Pulse Oximeter] Respiratory Rate Blood Pressure Blood Pressure [Ri ght Arm] 101/54 L Blood Pressure [Ri ght Upper Arm] Pulse Oximetry 95 Oxygen Delivery Me thod 08/14/24 07:00 08/14/24 07:00 08/14/24 07:00 Temperature 97.7 F Pulse Rate Pulse Rate [Pulse Oximeter] 60 60 Respiratory Rate 18 18 18 Blood Pressure Blood Pressure [Ri ght Arm] 117/66 Blood Pressure [Ri ght Upper Arm] Pulse Oximetry 95 95 Oxygen Delivery Me thod Room Air Room Air 08/14/24 11:00 Temperature 98.5 F Pulse Rate Pulse Rate [Pulse Oximeter] 60 Respiratory Rate 16 Blood Pressure Blood Pressure [Ri ght Arm] 97/82 Blood Pressure [Ri ght Upper Arm] Pulse Oximetry 96 Oxygen Delivery Me thod Room Air Labs Labs: Laboratory Results - last 24 hr 08/13/24 08/13/24 08/13/24 19:36 20:09 20:35 WBC RBC Hgb Hct MCV MCH MCHC RDW Coeff of [place] Plt Count Neut % (Auto) Lymph % (Auto) [place] % (Auto) Eos % (Auto) Baso % (Auto) Neut # (Auto) Lymph # (Auto) [place] # (Auto) Eos # (Auto) Baso # (Auto) Abs Immat Gran (auto) Imm/Tot Granulo (auto) INR 2.98 H Sodium 135 Potassium 5.4 H Chloride 100 Carbon Dioxide 24 Anion Gap 11 BUN 39 H Creatinine 1.4 Estimated Creat Clear 37.88 Estimated GFR 49 Glucose 154 H Lactate Calcium 9.1 Magnesium 1.9 Total Bilirubin 2.1 H Direct Bilirubin 0.8 H AST 48 H ALT 26 Alkaline Phosphatase 70 Troponin I 0.05 H C-Reactive Protein 5.0 H NT-Pro-B Natriuret Pep 5770 Total Protein 7.2 Albumin 4.4 Urine Color Yellow Urine Appearance Clear Urine pH 5.5 Ur Specific [place] 1.020 Urine Protein 1+ A Urine Glucose (UA) Negative Urine Ketones Negative Urine Blood Trace-intact A Urine Nitrite Negative Urine Bilirubin Negative Urine Urobilinogen 0.2 Ur Leukocyte Esterase Negative Urine RBC 2-5 A Urine WBC 10-25 A Ur Squamous Epith Cells Few Urine Bacteria Few A Fine Granular Casts Few A Urine L. pneumophilia Ag Urine Strep pneumoniae Ag SARS-CoV-2 (PCR) Negative SARS-CoV-2 Influenza Type A (PCR) Negative PCR FLU A Influenza Type B (PCR) Negative PCR FLU B RSV (PCR) Negative PCR RSV Lab Acknowledgement 08/13/24 08/13/24 08/13/24 20:36 21:01 22:20 WBC 20.58 H RBC 4.47 Hgb 13.3 L Hct 41.5 MCV 93 MCH 30 MCHC 32 RDW Coeff of [place] 15.3 Plt Count 120 L Neut % (Auto) 90.2 H Lymph % (Auto) 5.3 L Burke % (Auto) 4.2 Eos % (Auto) 0.0 Baso % (Auto) 0.1 Neut # (Auto) 18.60 H Lymph # (Auto) 1.10 [place] # (Auto) 0.90 Eos # (Auto) 0.00 Baso # (Auto) 0.00 Abs Immat Gran (auto) 0.00 Imm/Tot Granulo (auto) 0.2 INR Sodium Potassium Chloride Carbon Dioxide Anion Gap BUN Creatinine Estimated Creat Clear Estimated GFR Glucose Lactate 1.4 Calcium Magnesium Total Bilirubin Direct Bilirubin AST ALT Alkaline Phosphatase Troponin I C-Reactive Protein NT-Pro-B Natriuret Pep Total Protein Albumin Urine Color Urine Appearance Urine pH Ur Specific [place] Urine Protein Urine Glucose (UA) Urine Ketones Urine Blood Urine Nitrite Urine Bilirubin Urine Urobilinogen Ur Leukocyte Esterase Urine RBC Urine WBC Ur Squamous Epith Cells Urine Bacteria Fine Granular Casts Urine L. pneumophilia Ag L. pneumo Negative Urine Strep pneumoniae Ag S. pneumo Negative SARS-CoV-2 (PCR) Influenza Type A (PCR) Influenza Type B (PCR) RSV (PCR) Lab Acknowledgement 08/13/24 08/14/24 22:31 06:03 WBC 15.04 H RBC 3.94 L Hgb 11.8 L Hct 36.7 L MCV 93 MCH 30 MCHC 32 RDW Coeff of [place] 15.5 Plt Count 84 L Neut % (Auto) 87.0 H Lymph % (Auto) 7.2 L [place] % (Auto) 5.4 Eos % (Auto) 0.0 Baso % (Auto) 0.1 Neut # (Auto) 13.10 H Lymph # (Auto) 1.10 Burke # (Auto) 0.80 Eos # (Auto) 0.00 Baso # (Auto) 0.00 Abs Immat Gran (auto) 0.00 Imm/Tot Granulo (auto) 0.3 INR 3.61 H Sodium 133 L Potassium 4.3 Chloride 103 Carbon Dioxide 22 Anion Gap 8 BUN 41 H Creatinine 1.5 Estimated Creat Clear 34.20 Estimated GFR 45 Glucose 123 H Lactate Calcium 8.3 L Magnesium Total Bilirubin Direct Bilirubin AST ALT Alkaline Phosphatase Troponin I C-Reactive Protein 7.0 H NT-Pro-B Natriuret Pep Total Protein Albumin Urine Color Urine Appearance Urine pH Ur Specific [place] Urine Protein Urine Glucose (UA) Urine Ketones Urine Blood Urine Nitrite Urine Bilirubin Urine Urobilinogen Ur Leukocyte Esterase Urine RBC Urine WBC Ur Squamous Epith Cells Urine Bacteria Fine Granular Casts Urine L. pneumophilia Ag Urine Strep pneumoniae Ag SARS-CoV-2 (PCR) Influenza Type A (PCR) Influenza Type B (PCR) RSV (PCR) Lab Acknowledgement Test Added
[2024-08-14] MEDS: WARFARIN 2.5 MG TABLET PO (16:58)
--- NOTE | 2024-08-14 18:57 | PC.NURSE ---
End of shift: patient alert and oriented. VSS, on RA, Afebrile this shift. Patient tolerating a reg. diet. Patient is pleasant and cooperative, calls appropriately. Patient using 4ww to ambulate to chair and BR. Patient stated that it silverio when he pees. IV in L hand SL and R AC SL. Patient on tele, V-PACED.
[2024-08-14] MEDS: VANCOMYCIN 1 GM/200 ML 1 GM/200 ML PIGGYBACK IVPB (22:13)
[2024-08-15] MEDS: ACETAMINOPHEN 325 MG TABLET 650 MG PO ×2 (02:46→09:33)
[2024-08-15 03:00] VITALS: BP 123/69; PULSE 68; RESP 20; TEMP 37.1; O2SAT 92
[2024-08-15] MEDS: PIPERACILLIN/TAZOBACTAM 2.25 GM in 0.9 % SODIUM CHLORIDE Mini-bag 100 ML IVPB ×2 (04:12→09:32)
[2024-08-15 06:31] LABS: Basophils Absolute Auto 0.01 K/uL (0.00-0.30); Basophils Percent Auto 0.1 % (0.0-3.0); Eosinophils Absolute Auto 0.13 K/uL (0.00-0.50); Eosinophils Percent Auto 1.3 % (0.0-7.0); Hematocrit 36.1 % (37.0-53.0); Hemoglobin* 11.4 gm/dL (13.5-17.5); Immature Granulocytes Abs Auto 0.01 K/uL (0.00-0.30); Immature Granulocytes Pct Auto 0.1 %; Lymphocytes Percent Auto 15.4 % (20-44); Mean Corpuscular HGB Conc 32 gm/dL (32-36); Mean Corpuscular Hemoglobin 30 pg (26-34); Mean Corpuscular Volume 94 fL (80-100); Monocytes Percent Auto 8.4 % (0.0-11.0); Neutrophils Percent Auto 74.7 % (42.0-72.0); Platelet Count* 81 K/uL (140-440); RDW Coefficient of Variation % 15.6 % (11.5-15.5); Red Blood Count 3.85 m/uL (4.30-5.90); White Blood Count* 10.15 K/uL (4.50-11.00)
[2024-08-15 06:45] LABS: Chloride* 105 mmol/L (96-114); Potassium* 4.2 mmol/L (3.6-5.1); Sodium* 133 mmol/L (135-149)
[2024-08-15 06:48] LABS: Blood Urea Nitrogen* 48 mg/dL (7-30); Creatinine* 1.7 mg/dL (0.5-1.5); Est. Creatinine Clearance* 30.18; Estimated Glomerular Filt Rate 39 ml/min; Slide Review Reflex No
[2024-08-15 06:49] LABS: Anion Gap 7 mEq/L (7-15); Calcium* 8.2 mg/dL (8.4-10.6); Carbon Dioxide* 21 mmol/L (20-32); Glucose* 86 mg/dL (60-115)
[2024-08-15 06:57] LABS: INR 3.38 (0.91-1.10); Prothrombin Time 35.5 Seconds
[2024-08-15 07:00] VITALS: PULSE 59; O2SAT 96
--- NOTE | 2024-08-15 07:14 | PC.NURSE ---
End of shift summary: Pt has been A&O, afebrile and VSS overnight. He is SBA with 4ww up to the BR. Pt c/o left knee pain in which PRN Tylenol given @ 0245. No c/o dizziness or nausea. TELE read 1st degree block with a BBB. PIV x2 both SL and C/D/I. BLE 2+ edema, TEDs removed at bedtime and patient refused SCD?s overnight. Incontinent/continent of urine. IV Zosyn & IV Vanco given for suspected UTI. No BM overnight. ?
[2024-08-15] MEDS: SODIUM CHLORIDE 0.9 % (FLUSH) 10 ML SYRINGE 5 ML IVF (09:33)
[2024-08-15] MEDS: SENNOSIDES/DOCUSATE TABLET PO (09:38)
[2024-08-15 12:28] VITALS: BP 118/72; PULSE 56; TEMP 36.9; O2SAT 95
--- NOTE | 2024-08-15 15:05 | PC.NURSE ---
The patient discharged home with his grandson this afternoon. All discharge education was reviewed and all questions were answered. All belongings were sent home with the patient. Juany VELASQUEZ BSN
--- NOTE | 2024-08-15 16:37 | PM.DS1 ---
DS: Providers Provider Date Seen: 08/15/24 Date of admission: 08/13/24 22:01 Primary care physician: Jack Smith MD Admitting Clinician: Man Greenfield MD Consults: 08/13/24 22:03 Consult to Occupational Therapy [CONS] Routine Comment: Reason(s) for OT Consult:: Evaluate and Treat Any Restrictions?:: No Restrictions Consult to Physical Therapy [CONS] Routine Comment: Reason(s) for PT Consult:: Evaluate and Treat Any Restrictions?:: No Restrictions Attending Physician on discharge: Sree Joseph MD Date of Discharge: 08/15/24 DS: Diagnosis Discharge Diagnosis (1) Sepsis: Status: Acute Problem details: -08/13/2024: Onset on the day of admission of fever (103F), hypotension (92/51), EV (creatinine 1.1-1.4 and potassium 5.4), altered mental status. Pending further evaluation for the source of sepsis start fluid resuscitation and broad-spectrum antibiotics. Concerns include pneumonia, UTI, endocarditis. CT scan pending. Cultures pending. Initiate broad-spectrum antibiotics. -08/14/2024: Much improved. TTE: No obvious vegetation (2) Fever: Status: Acute (3) H/O mitral valve replacement: Status: Acute Problem details: -Echocardiogram from June 2023: 1. Normal LV size, mildly increased wall thickness, low normal global systolic function with an estimated EF of 50 - 55%. 2. Moderately enlarged left atrium. 3. Right ventricular cavity size is mildly enlarged, global systolic RV function is normal. 4. The aortic valve is sclerotic, mild stenosis and mild regurgitation. 5. The mitral valve is functioning [address] [place] MVR and mean gradient 3 mmHg at hr of 53 bpm, trace mitral regurgitation. 6. The aortic sinus is normal for age/sex/bsa with a maximal diameter of 4.1 cm. -trans-thoracic echocardiogram 08/14/2024: 1. Normal LV chamber size, mildly increased wall thickness, mildly reduced global systolic function with left EF 45-50%. Basal to mid inferior wall mildly hypokinetic. Abnormal septal motion consistent with conduction defect. 2. Right ventricular chamber size mildly enlarged with mildly reduced function 3. 31 mm mechanical [place] mitral valve replacement, trace mitral regurgitation with mean gradient 4 mmHg at heart rate 60 4. Trileaflet aortic valve, moderate stenosis, trivial regurgitation 5. Severe tricuspid valve regurgitation with estimated right ventricular systolic pressure 32 mmHg plus right atrial pressure (4) Chronic anticoagulation: Status: Acute Problem details: Warfarin 5 mg 3 days a week and 2.5 mg 4 days a week for target INR of 2.5-3.5 due to mechanical mitral valve and AFib. Daily INR in-hospital while on antibiotics (5) Congestive heart failure (CHF): Status: Acute Problem details: Caution with fluid resuscitation due to heart failure risk. (6) Status post placement of cardiac pacemaker: Status: Acute Problem details: June 2023 for heart block and syncope (7) Dementia: Status: Acute Problem details: See outpatient occupational therapy notes from 05/14/2024 and 07/11/2024. Parke score of 15. Cognitive performance test score of 5.2/5.6 DS: Summary Hospital Course Hospital Course: Admission history of present illness: ?88 year old male with [place] mitral valve replacement on warfarin and pacemaker for AFib and intermittent heart block admitted through the emergency department with onset around 830 this morning of feeling ill. He reported feeling off balance, mental confusion, fatigue and malaise and fever and chills. He got worse as the day went on so he came to the emergency room this evening. He has had some cough with this. No upper respiratory symptoms, sore throat or congestion. He is not aware of significant dyspnea. No chest pain. He did have an emesis after he came to the emergency department but not prior to that. He is not having abdominal pain. He reports his urination has been more frequent than usual. No diarrhea. He has had no known exposures. He reports he has otherwise been relatively healthy recently. Within less than 1 day he feels much improved compared to admission. More aware and less tired and fatigued. Denies feeling off balance. No longer confused. Denies myalgias or arthralgias. Denies malaise, fevers, rigors, diaphoresis. Chronic constipation with improved urination, with history of sense of incomplete voiding in the past. No other systemic or localizing symptoms at this time. Blood cultures and urine cultures are negative to date at time of discharge. Will plan on course of oral antibiotic for complicated UTI despite negative urine culture. Continue to be mindful of the possibility of other etiologies including bacterial endocarditis or infection of other hardware such as permanent pacemaker guidewires. Explained to patient who is agreeable. Status at Discharge Functional status at discharge: uses cane/walker Overall status at discharge: patient is back to baseline Time Spent with Patient Time attestation: Total time spent providing and/or coordinating discharge services: Time spent: Greater than 30 minutes Exam Narrative: Exam Narrative: Examined patient in his hospital room. Sitting in recliner chair at bedside. Appears comfortable and in no acute distress. Vision and hearing are adequate. Alert and oriented x3. Lungs are clear to auscultation without wheezing, rhonchi, rales. Heart tones with regular rhythm, normal S1-S2. Prosthetic mitral valve sounds are clear. Abdomen with active bowel sounds, soft, nontender. No rebound or guarding. Extremities without edema. Skin is dry and intact without rashes. Ambulates in the hallways with walker, without any dyspnea with exertion Const: Vital Signs, click to edit/add: Vital Signs - 24 hr 08/14/24 21:20 08/14/24 23:00 08/14/24 23:00 Temperature 98.4 F Pulse Rate 60 Pulse Rate [Bilate ral Radial] Pulse Rate [Pulse Oximeter] 62 Respiratory Rate 18 Blood Pressure [Ri ght Arm] 115/54 L Pulse Oximetry [address] [facility] 08/14/24 23:00 08/14/24 23:00 08/14/24 23:00 Temperature 98.9 F Pulse Rate Pulse Rate [Bilate ral Radial] Pulse Rate [Pulse Oximeter] 60 60 Respiratory Rate 22 22 22 Blood Pressure [Ri ght Arm] 104/62 Pulse Oximetry [address] [facility] Room Air 08/15/24 03:00 08/15/24 07:00 08/15/24 07:00 Temperature 98.7 F Pulse Rate Pulse Rate [Bilate ral Radial] Pulse Rate [Pulse Oximeter] 68 Respiratory Rate 20 Blood Pressure [Ri ght Arm] 123/69 Pulse Oximetry 92 [address] [facility] Room Air 08/15/24 07:00 08/15/24 12:28 Temperature 98.5 F Pulse Rate 59 L Pulse Rate [Bilate ral Radial] 56 L Pulse Rate [Pulse Oximeter] Respiratory Rate Blood Pressure [Ri ght Arm] 118/72 Pulse Oximetry [address] [facility] DS: Data Data Completed and Pending Labs on day of discharge: Labs from last 24 hours 08/15/24 06:11 WBC 10.15 RBC 3.85 L Hgb 11.4 L Hct 36.1 L MCV 94 MCH 30 MCHC 32 RDW Coeff of [place] 15.6 H Plt Count 81 L Neut % (Auto) 74.7 H Lymph % (Auto) 15.4 L Chambers % (Auto) 8.4 Eos % (Auto) 1.3 Baso % (Auto) 0.1 Neut # (Auto) 7.60 H Lymph # (Auto) 1.60 Chambers # (Auto) 0.90 Eos # (Auto) 0.13 Baso # (Auto) 0.01 Abs Immat Gran (auto) 0.01 Imm/Tot Granulo (auto) 0.1 INR 3.38 H Sodium 133 L Potassium 4.2 Chloride 105 Carbon Dioxide 21 Anion Gap 7 BUN 48 H Creatinine 1.7 H Estimated Creat Clear 30.18 Estimated GFR 39 Glucose 86 Calcium 8.2 L C-Reactive Protein 9.0 H Preliminary micro results at discharge 08/13/24 20:35 Blood Culture - Preliminary Blood NO GROWTH AFTER [address] Chest/Ab/Pelvis: Radiologist's impression: IMPRESSION: 1. Circumferential bladder wall thickening. Correlate for cystitis. 2. Mild ascending colonic wall thickening may reflect sequela of mild infectious/inflammatory colitis. 3. Cholelithiasis without discrete CT evidence of acute cholecystitis. 4. Interval increase in size of prominent retroperitoneal lymph nodes with largest measuring up to 1.0 cm, nonspecific. 5. Bilateral nonobstructing renal calculi measuring 1 mm. 6. Moderate cardiomegaly. Discharge Plan Discharge Disposition: Home, Self-Care Date of Admission: 08/13/24 22:01 Attending Provider on Discharge: Sree Joseph Primary Care Provider: Jack Smith Condition: Improved Anticipated Discharge Date/Time: 08/15/24 13:30 Discharge Medications: New amoxicillin-pot clavulanate 875-125 mg tablet 1 tab PO BID 10 Days Qty: 20 0RF Continued atorvastatin 20 mg tablet 20 mg PO HS warfarin 5 mg tablet 2.5 - 5 mg PO DAILY Rx Instructions: 2.5 mg Sun, Tues, Thurs; 5 mg all other days cholecalciferol (vitamin D3) [Vitamin D3] 50 mcg (2,000 unit) capsule 50 mcg PO DAILY celecoxib 200 mg capsule 200 mg PO DAILY clotrimazole 1 % cream 1 applic topical BID acetaminophen 500 mg tablet 500 mg PO Q6H PRN ascorbic acid (vitamin C) 1,000 mg tablet 1 g PO DAILY Discharge Orders: Discharge Order (Routine); Ordered 08/15/24 Ordered By: Sree Joseph Patient Education: Amoxicillin/Clavulanate Potassium (By mouth), Urinary Tract Infection in Men (DC) Additional Instructions: 1. Follow-up with primary manager critical care in 5-10 days 2. Return to clinic or hospital sooner if warranted 3. PT/INR in 4-5 days Activity Level: Activity as Tolerated Discharge Diet: Regular Follow Up Appointments: Jack Smith MD [Primary Care Provider] - 08/20/24 11:45 am ([facility] for follow-up.) Forms: [employer] Info Instructions
== END 2024-08-15 14:50 | disposition home or self-care (01) | DRG 872 ==
LOC: ED 21:01 → MEDSURG 08-14 10:59
PROVIDERS: Family Medicine; Admitting Provider Family Medicine; Emergency Provider Emergency Medicine Emergency Medical Services; PCP Surgery; Visit Provider Family Medicine
DX: A41.9 Sepsis, unspecified organism (principal); N17.9 Acute kidney failure, unspecified; I50.22 Chronic systolic (congestive) heart failure; N39.0 Urinary tract infection, site not specified; E87.5 Hyperkalemia; F03.90 Unspecified dementia, unspecified severity, without behavioral disturbance, psychotic disturbance, mood disturbance, and anxiety; I11.0 Hypertensive heart disease with heart failure; Z95.2 Presence of prosthetic heart valve; Z95.0 Presence of cardiac pacemaker; Z79.01 Long term (current) use of anticoagulants; G47.33 Obstructive sleep apnea (adult) (pediatric); I48.91 Unspecified atrial fibrillation; E78.5 Hyperlipidemia, unspecified
CPT/HCPCS: 36415; 71046; 71260; 74177; 80048; 80076; 81001; 83605; 83735; 83880; 84484; 85025; 85610; 86140; 87040; 87081; 87086; 87449; 87631; 87899; 93005; 93306; 94761; 97112; 97116; 97161; 97165; 97530; 97535; 99284; 99285; A9270; J1885; J2405; J2543; J3372; J7030; J7120; Q9967

== ENCOUNTER 2025-01-01 11:00 | Outpatient (RCR) | payer MEDICARE, OTHER, SELFPAY | END 2025-04-10 16:17 | disposition home or self-care (01) | PROVIDERS: PCP Surgery; Visit Provider Surgery | DX: R26.89 Other abnormalities of gait and mobility (principal); R29.898 Other symptoms and signs involving the musculoskeletal system; R26.9 Unspecified abnormalities of gait and mobility; M62.81 Muscle weakness (generalized); Z51.89 Encounter for other specified aftercare | CPT/HCPCS: 97110; 97112; 97161 ==

== ENCOUNTER 2025-01-04 09:24 | Emergency (ER) | payer MEDICARE, OTHER, SELFPAY ==
--- OUTSIDE RECORDS SUMMARY | 2025-01-04 09:25 | XMS_ITS ---
Author Name Interface, [id number] lity Address [address] [place] [address] [address] [address] Organization [facility] Address [address] [place], [place] [address] [place] [address] Allergies and Adverse Reactions Medication/Group Name Reaction Severity Date Sulfamide 07/26/2021 Plan Date Type Value 03/24/2022 APPOINTMENT OV 10 MIN Reason for Visit OV 10 MIN Encounters Date Name 03/24/2022 Melanoma Medications Date Name Route Dose Frequency Instructions Start Date End Date Status Celecoxib Oral ac tive Amoxicillin Oral For dental work active Cholecalciferol Oral 2.0 active Warfarin Oral act romy Ascorbic Acid Oral active Atorvastatin Oral active Problems Diagnosis Status Date of Diagnosis Resolution Date Melanoma Active 06/14/2021 Vital Signs Date Type Value 03/24/2022 Height 70.00 03/24/2022 Pain Scale 0.00
--- OUTSIDE RECORDS SUMMARY | 2025-01-04 09:25 | XMS_ITS | CCD ---
Author Name Interface, [id number] lity Address [address] [place] [address] [address] [place] [address] Organization [facility] Address [address] [place] [address] [address] [place] [address] Care Team Providers Care Computer Systems Information Director Name Role Phone Debra KIRAN, Jovanny Unavailable Unavai lable Allergies and Adverse Reactions Medication/Group Name Reaction Severity Date Sulfamide 07/26/2021 Reason for Visit OV 10 MIN Medications Date Name Route Dose Frequency Instructions Start Date End Date Status Amoxicillin Oral For dental work active Ascorbic Acid Oral active Celecoxib Oral ac tive Cholecalciferol Oral 2.0 active Warfarin Oral act romy Atorvastatin Oral active Problems Diagnosis Status Date of Diagnosis Resolution Date Melanoma Active 06/14/2021 Social History Date Name Value 03/24/2022 Sex Male
--- OUTSIDE RECORDS SUMMARY | 2025-01-04 09:25 | XMS_ITS | CCD ---
Author Name Interface, [id number] lity Address [address] [place] [address] [address] [place] [address] Organization [facility] Address [address] [place] [address] [address] [place] [address] Care Team Providers Care Surface Hydrologist Name Role Phone Debra KIRAN, Jovanny Unavailable Unavai lable Allergies and Adverse Reactions Medication/Group Name Reaction Severity Date Sulfamide 07/26/2021 Reason for Visit OV 10 MIN Medications Date Name Route Dose Frequency Instructions Start Date End Date Status Amoxicillin Oral For dental work active Ascorbic Acid Oral active Warfarin Oral act romy Cholecalciferol Oral 2.0 active Celecoxib Oral ac tive Atorvastatin Oral active Problems Diagnosis Status Date of Diagnosis Resolution Date Melanoma Active 06/14/2021 Social History Date Name Value 03/24/2022 Sex Male
--- OUTSIDE RECORDS SUMMARY | 2025-01-04 09:25 | XMS_ITS ---
Author Name Interface, [id number] lity Address [address] [place] [address] [address] [address] Organization [facility] Address [address] [place], [place] [address] [place] [address] Allergies and Adverse Reactions Medication/Group Name Reaction [...]
[2025-01-04 09:26] VITALS: BP 153/76; PULSE 75; RESP 18; TEMP 36.9; O2SAT 97; BMI 27.7
--- OUTSIDE RECORDS SUMMARY | 2025-01-04 09:26 | XMS_ITS | Clinical Summary ---
Author Organization [facility] Address [address] [place] [id number] Care Team Providers Care Medical Attendant Name Role Phone Randy Roberts MD Unavailable Rocky Borrero Unavailable Jack Smith MD Primary Care Provider [phone] [facility] [phone] Allergies Active Allergy Reactions Criticality Noted Date Comments Indomethacin GI Bleeding Nsaids (Non-Steroidal Anti-Inflammatory Drug) Bleeding High 08/26/2022 Sulfa (Sulfonamide Antibiotics) *Unknown - Childhood Rxn 03/31/2014 Medications cholecalciferol (VITAMIN D-3) 2,000 unit capsuleIndication s:osteoporosis Take 1 capsule by mouth once daily. Indications: OSTEOPOROSIS 0 04/18/20 14 Active ascorbic acid, vitamin C, (VITAMIN C) [...] meal. 90 Capsule 3 05/10/20 24 Active amoxicillin 500 mg capsuleIndication s:History of mitral valve replacement with mechanical valve 1 HOUR BEFORE DENTAL APPOINTMENT 4 Capsule 1 10/02/19 25 Active warfarin (COUMADIN) 5 mg tabletIndications :Anticoagulation monitoring, INR range 2.5-3.5,History of mitral valve replacement with mechanical valve Take by mouth 5 mg (5 mg x 1) every Monday/ and 2.5 mg (5 mg x 0.5) all other days in the evening OR as directed 01/04/20 25 Active warfarin (COUMADIN) 5 mg tabletIndications :Anticoagulation monitoring, INR range 2.5-3.5,History of mitral valve replacement with mechanical valve Take by mouth 5 mg (5 mg x 1) every Mon, Wed, Mon; 2.5 mg (5 mg x 0.5) all other days in the evening OR as directed 65 Tablet 08/25/19 25 025 Discontin ued(Reord er (E-cancel not sent)) Active Problems Problem Noted Date Diagnosed Date Dementia 08/20/2024 Overview (08/20/2024): See outpatient occupational therapy notes from 05/14/2024 and 07/11/2024. Currie score of 15. Cognitive performance test score of 5.2/5.6 Status post placement of cardiac pacemaker 08/20 Overview (08/20/2024): June 2023 for heart block and syncope Osteoarthritis of fingers of hands, bilateral Second [...] 10/21/2022 05/10/2024 Overview (10/21/2022): CT emergency room [place] with more prominent enlarged right ventricle - [...] Care Agent: Diana Vallejo Relationship: Spouse , [phone] Secondary Health Care Agent: Alexander Vallejo Relationship: [...] Encounters Date Type Department Care Team Description 01/03/[address] [address] Jack Smith MD Refill Request (Warfarin) 01/03/2025 Anticoagulation (warfarin) [facility] [address] [place] [address] Nurse, Ahg Anticoag Anticoagulation 01/02/2025 1:15 PM CDT Orders Only [address] [address] [place] 01/02/2025 Travel 12/21/2024 Anticoagulation (warfarin) [facility] [address] [place] [address] Nurse, Ahg Anticoag Anticoagulation 12/19/2024 1:00 PM CDT Orders Only [address] [address] [place] [facility] 12/18/2024 Travel 12/05/2024 Anticoagulation (warfarin) [facility] [address] [place] [address] [facility] [place] [facility] Anticoagulation 12/05/2024 Travel 11/21/2024 1:30 PM CDT Orders Only [facility] [address] [facility] [place] [address] [place] [facility] 11/21/2024 Anticoagulation (warfarin) [facility] [address] [facility] [place] [address] 1[place] [facility] Anticoagulation 11/21/2024 Travel 11/07/2024 Anticoagulation (warfarin) [facility] [address] [facility] [place] [address] 1[place] [facility] Anticoagulation 11/07/2024 Travel 10/24/2024 12:45 PM CDT Orders Only [facility] [address] [facility] [place] [address] [place] [facility] 10/24/2024 Anticoagulation (warfarin) [facility] [address] [facility] [place] [address] 1[place] [facility] Anticoagulation 10/24/2024 Travel 10/16/2024 1:15 PM CDT Office Visit [facility] [address] [facility] [place] [address] Jb Sosa DPM Consult (Toenail problem) 10/15/2024 Travel 10/10/2024 1:15 PM CDT Orders Only [facility] [address] [facility] [place] [address] [place] [facility] 10/10/2024 Anticoagulation (warfarin) [facility] [address] [place] [address] 1[place] [facility]tico[facility] 10/10/2024 Travel 10/08/2024 2:00 PM CDT Office Visit [facility] [address] [place] [id number] Maria Esther Schilling PA Follow Up (Follow up sinus node dysfunction - yearly visit ) 10/07/2024 Travel from Last 3 Months Immunizations Immunization Administration Dates Next Due AMB INFLUENZA IIV3 [...] row info)? No 07/07/2023 Interpersonal Safety Abuse 12 - 18 Not on file 07/07/2023 Interpersonal Safety Ambulatory Vulnerability No t on file 07/07/2023 Utilities Answer Date Recorded Do you have trouble paying f or utilities (for example, heat, electricity, water, phone)? 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 Not on file Not on [employer] History Last Filed Vital Signs Vital Sign Reading Time Taken Comments Blood Pressure 132/77 10/08/2024 2:11 PM CDT Pulse 98 10/16/2024 1:13 PM CDT Temperature 36.8 C (98.2 F) 07/08/2023 8:41 AM RADIOLOGY ASSISTANT Respiratory Rate 18 07/08/2023 8:41 AM RADIOLOGY ASSISTANT Oxygen Saturation 96% 10/16/2024 1:13 PM CDT Inhaled Oxygen Concentration - - Weight 83.9 kg (185 lb) 10/16/2024 1:13 PM CDT Height 170.9 cm (5' 7.28) 06/04/2024 10:[address] Body Mass Index 28.73 06/04/2024 10:37 AM RADIOLOGY ASSISTANT Plan of Treatment Upcoming Encounters Date Type Department Care Team (Late st Contact Info) Description 01/16/2025 1:15 PM CDT Orders Only [facility] [address] [facility] [address] [place] 03/25/2025 11:30 AM CDT Orders Only [facility] [address] [place] [address] [place] 04/01/2025 10:30 AM CDT [facility] Visit [facility] [address] [place] [id number] Michele Longo MD [address] [place] [address] Health Maintenance Due Date Last Done Comments RSV vaccine for adults or (1 - 1-dose 75+ series) 2012 COVID-19 vaccine series ( season) 2024 05/10/2024, 10/30/2023, 05/08/2023, Additional history exists Influenza Vaccine (#1) 2025 , 05/08/2023, 04/04/2022, Additional history exists Depression screening for age 12+ 05/10/2025 05/10/2024, 05/08/2023, 05/08/2023, Additional history exists Medicare Wellness for age 65+ 05/11/2025 05/10/2024, 05/08/2023, 04/04/2022, Additional history exists BMI (ht and wt on same day) for age 18+ 06/04/2025 06/04/2024, 05/10/2024, 05/08/2023, Additional history exists Tetanus booster 05/26/2031 05/26/2021, 07/20, 08/24/2005 Pneumococcal series for age 50+ Completed 03/10/2015, 08/06/2010 Zoster (shingles) series for age 50+ Completed 11/21/2018, 08/28/2018 Hepatitis B series for 19+ Aged Out N o longer eligible based on patient's age to complete this topic Medical Devices Implanted Type Area Registered Art Therapist Device Identifier Shelf Expiration Date Model / Serial / Lot Bone Matrix 10cc Vitoss Foam Ba2x Synth - [id number] Implanted:Qty : 1 on 04/15/2014 by Kunal Gerard MD at [facility] Right: Lumbar Vertebrae [employer] 08/17/[id number] / / [id number] Screw Lmbr Post 7.1t10dqlh Cnnltd - [id number] Implanted:Qty : 1 on 04/15/2014 by Kunal Gerard MD at [facility] Right: Lumbar Vertebrae [employer]tho [id number]# / / Description:7.5 * 45 mm sext ant screw Screw Lmbr Post 7.7i60pnld Cnnltd - [id number] Implanted:Qty : 2 on 04/15/2014 by Kunal Gerard MD at [facility] Right: Lumbar Vertebrae [employer] Spine/Ortho [id number]# / / [id number] - [id number] Implanted:Qty : 1 on 04/15/2014 by Kunal Gerard MD at [facility] Right: Lumbar Vertebrae [employer] 11/07/2019 [id number] / / [id number] Description:Capstone control spinal system interbody fusion device (15 mm * 27 mm * 6 degrees) Chris 40mm Titnm Sextant - [id number] Implanted:Qty : 1 on 04/15/2014 by Kunal Gerard MD at [facility] Right: Lumbar Vertebrae [employer] Spine/Ortho [id number]# / / Screw Lmbr Post 7.8j07dnli Fa Cnnltd - [id number] Implanted:Qty : 1 on 04/15/2014 by Kunal Gerard MD at [facility] Right: Lumbar Vertebrae [employer] Spine/Ortho [id number]# / / Chris 35mm Titnm Sextant - [id number] Implanted:Qty : 1 on 04/15/2014 by Kunal Gerard MD at [facility] Right: Lumbar Vertebrae [employer] Spine/Ortho [id number]# / / Set Screw Lmbr Antltd - [id number] Implanted:Qty : 4 on 04/15/2014 by Kunal Gerard MD at [facility] Right: Lumbar Vertebrae [employer] Spine/Ortho [id number]# / / Explanted Type Area Registered Art Therapist Device Identifier Shelf Expiration Date Model / Serial / Lot Rinku - [id number] Explanted:Qty: 1 on 04/15/2014 by Kunal Gerard MD at [facility] Right: Spine [employer] Spine/Ortho 02/21/2019 [id number] / / [id number] Procedures Procedure Name Priority Date/Time Associated Diagnosis Comments PROTIME-INR Routine 01/02/2025 1:27 PM CDT Anticoagulation monitoring, INR range 2.5-3.5 History of mitral valve replacement with mechanical valve INR,POCT Routine 12/19/2024 1:15 PM CDT Anticoagulation monitoring, INR range 2.5-3.5 History of mitral valve replacement with mechanical valve INR,POCT Routine 12/05/2024 2:44 PM CDT Anticoagulation monitoring, INR range 2.5-3.5 History of mitral valve replacement with mechanical valve INR,POCT Routine 11/21/2024 1:39 PM CDT Anticoagulation monitoring, INR range 2.5-3.5 History of mitral valve replacement with mechanical valve INR,POCT Routine 11/07/2024 1:28 PM CDT Anticoagulation monitoring, INR range 2.5-3.5 History of mitral valve replacement with mechanical valve INR,POCT Routine 10/24/2024 12:41 PM CDT Anticoagulation monitoring, INR range 2.5-3.5 History of mitral valve replacement with mechanical valve INR,POCT Routine 10/10/2024 1:15 PM CDT Anticoagulation monitoring, INR range 2.5-3.5 History of mitral valve replacement with mechanical valve from Last 3 Months Results * (ABNORMAL) PROTIME-INR [03744.0] - Standing Order (01/02/2025 1:27 PM CDT) INR 4.4(H) <1.3 01/02/2025 10:30 PM CDT [facility] PROTIME 50.8(H) 10.6 - 12.4 sec 01/02/2025 10:30 PM CDT [facility] Blood BLOOD SPECIMEN / Unknown [facility] / Unknown 01/02/2025 1:27 PM CDT 01/02/2025 1:27 PM CDT Narrative [facility] - 01/02/2025 10:30 PM CDT Therapeutic Range 2.0-3.0 for most anticoagulated patients [...] Jack Smith MD HEMATOLOGY Final Resu lt [facility] [address] [place] [address], [place] * (ABNORMAL) INR - POCT [[id number]] - Standing Order (12/19/2024 1:15 PM CDT) Only the most recent of6 resultswithin the time period is included. INR 3.4(H) ratio [facility] Comment: INRs >2.9 may be falsely elevated in patients receiving either unfractionated Heparin or Low Molecular Weight Heparin. Follow up testing in a hospital laboratory may be helpful if clinically indicated. INR results of > or = 5.0 should be verified using the standard venipuncture procedure. Reference Range 0.9-1.1 Moderate-intensity Warfarin Therapy 2.0-3.0 Higher-intensity Warfarin Therapy 3.0-4.0 PROTHROMBIN TIMEP 40.3(H) 10.5 - 13.1 sec [facility] Comment: Point of care fingerstick Prothrombin Time/INR results may vary from venous Prothrombin Time/INR methodologies. Any results exhibiting inconsistency with the patient's clinical status should be repeated using a venous Prothrombin Time/INR method. Blood BLOOD SPECIMEN / Unknown 12/19/2024 1:15 PM CDT 12/19/2024 1:15 PM CDT Jack Smith MD LABORATORY Final Resu lt [facility] [address] [place] [address], [facility] [address] [place] [address] from Last 3 Months Insurance MEDICARE PB ONLY MEDICARE PART A HB ONLY MEDICARE PART B HB ONLY [facility] SHARED SERVICES MEDICARE PPS Advance Directives Documents on File Type Date Recorded Patient Supervisor Extrusion Expl anation Healthcare Directive 06/23/2021 022 * [...] 11:29 AM 04/18/2014 5:44 PM Care Teams Medical Attendant Relationship Specialty Start Date End Date Jack Smith MD [address] [place] [address] PCP - General Family Practice 10/08/13 Randy Roberts MD Surgery - Orthopedics 08/12/11 Rocky Borrero [address] [place] [address] Personal Health Coach 08/12/[address] [address] 02/06/23
--- NOTE | 2025-01-04 09:37 | ED_ITS ---
HPI - Fall General Time Seen by Provider: 09:37 Date Seen: 01/04/25 Chief Complaint: Fall/Minor Trauma Stated Complaint: Nose Laceration Time Seen by Provider: 01/04/25 09:30 Source: patient and RN notes reviewed Mode of arrival: ambulatory Limitations: no limitations History of Present Illness HPI Narrative: This 89-year-old male is coming in with a nasal bridge laceration that started bleeding again. He was getting up around 12:30 a.m. last night, lost his balance and hit the garbage that was next to his bed. He denies loss of consciousness. He is on Coumadin, not clear if it is for chronic atrial fibrillation and/or valve replacement. His most recent INR was 4.4. He has been withholding his Coumadin. The lacerations started bleeding again this morning and he could not get it to stop, is brought in by family. He denies any visual changes, no headache, no neck pain. He states there was no cardiac reason like chest pain, palpitations or any respiratory symptoms causing him to fall. He does have dementia but seems to be at his baseline. His records also show pacemaker. His tetanus is up-to-date in 2020. Family is wanting to know if something can be done about his anticoagulation. Did review with them that if he has a mechanical valve, it is imperative to keep him on anticoagulation. We did discuss the underlying risk of stroke from atrial fibrillation is well but even more likely if he has a mechanical valve and is anticoagulation is reversed too much. They do not know if he has had a mechanical valve, will need to look at his records further. 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 complaint: fall Related Data Home Medications ?Medication ?Instructions ?Recorded ?Confirmed atorvastatin 20 mg tablet 20 mg PO HS 12/23/21 5 celecoxib 200 mg capsule 200 mg PO DAILY 12/23/21 cholecalciferol (vitamin D3) 50 50 mcg PO DAILY 01/04/25 mcg (2,000 unit) capsule (Vitamin D3) warfarin 5 mg tablet 2.5 - 5 mg PO DAILY 12/23/21 01/04/25 acetaminophen 500 mg tablet 500 mg PO Q6H PRN 08/14/24 01/04/25 ascorbic acid (vitamin C) 1,000 mg 1 g PO DAILY 01/04/25 tablet clotrimazole 1 % topical cream 1 applic topical BID 01/04/25 Allergies Allergy/AdvReac Type Severity Reaction Status Date / Time indomethacin Allergy Intermediate Bleeding Verified 01/04/25 09:35 Sulfa (Sulfonamide Allergy Intermediate Hives Verified 01/04/25 09:35 Antibiotics) Review of Systems Status of ROS: Reports: 6 or more systems reviewed and unremarkable except as noted in History and below [facility] Medical History Dementia ?F03.90 - Unspecified dementia, unspecified severity, without behavioral disturbance, psychotic disturbance, mood disturbance, and anxiety (ICD-10) Melanoma ?C43.9 - Malignant melanoma of skin, unspecified (ICD-10) Chronic anticoagulation ?Z79.01 - 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 (ICD-10) Lumbar spinal stenosis ?M48.061 - Spinal stenosis, lumbar region without neurogenic claudication (ICD-10) Atrial fibrillation ?I48.91 - Unspecified atrial fibrillation (ICD-10) Sepsis ?A41.9 - Sepsis, unspecified organism (ICD-10) Osteoarthritis of right knee ?M17.11 - Unilateral primary osteoarthritis, right knee (ICD-10) SHASTA (obstructive sleep apnea) ?G47.33 - Obstructive sleep apnea (adult) (pediatric) (ICD-10) Congestive heart failure (CHF) ?I50.9 - Heart failure, unspecified (ICD-10) Hyperlipemia ?E78.5 - Hyperlipidemia, unspecified (ICD-10) Arthritis ?M19.90 - Unspecified osteoarthritis, unspecified site (ICD-10) Surgical History History of lumbar surgery ?Z98.890 - Other specified postprocedural states (ICD-10) Status post placement of cardiac pacemaker ?Z95.0 - Presence of cardiac pacemaker (ICD-10) Hx of tonsillectomy ?Z90.89 - Acquired absence of other organs (ICD-10) H/O vasectomy ?Z98.52 - Vasectomy status (ICD-10) 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 He has a son, Alexander, in [place] and a daughter, Janeth, in [place]. She is healthcare power of civil rights attorney. Code status is DNR. Does not smoke. He rarely drinks alcohol. What is your current living situation?: I presently have a place to live Problems where you live: no known problems Problems where you live details: NA In the past 12 months, utilities in danger of being shut off: no In past 12 months, lack of transportation kept you from medical appts, meetings, work, or getting things needed for daily living: no In the past 12 mos, have been you worried that your food would run out before you had money to buy more?: never true In the past 12 mos, the food you bought just didn't last and you didn't have money to buy more?: never true Highest level of school completed/degree received: high school graduate Smoking Status: Never smoker Second hand tobacco smoke exposure: No How often do you have a drink containing alcohol: never How often do you have six or more drinks on one occasion: Never AUDIT-C Alcohol total score: 0 Non-prescribed substance use: denies use How often does anyone, including family, friends and others, physically hurt you : never How often does anyone, including family, friends and others, insult or talk down to you: never How often does anyone, including family, friends and others, threaten you with harm: never How often does anyone, including family, friends and others, scream or curse at you: never service: No Exam Const: Vital Signs, click to edit/add: Vital Signs - 24 hr 01/04/25 09:26 01/04/25 11:00 Temperature 98.5 F Pulse Rate 87 Pulse Rate [Right Pulse Oximeter] 75 Respiratory Rate 18 18 Blood Pressure 141/74 H Blood Pressure [Le ft Forearm] 153/76 H Pulse Oximetry 97 97 Oxygen Delivery Me thod Room Air This 89-year-old male is ambulatory into the ED of his own accord, [facility] exam room 1. He is alert, interactive, no apparent distress. He has active bleeding from a laceration at the top aspect of his nose at the beginning of the bridge. It is curvilinear, about about 1/2 cm and actively bleeding. He has bruising above the eyebrow on the right forehead, small hematoma there. He has black eye below the right eye. Extraocular muscles are intact, no evidence of entrapment, pupils equal and round. He denies any double vision or visual changes on gross confrontation. Symmetrical facial function. Nose outside of the lacerated area seems to palpate intact. No bleeding from the nares. Speech is normal. Neck full range of motion, denies any pain, no midline tenderness, no paraspinous tenderness in the neck. Lungs are clear, good air entry, no wheezing or crackles. CV is regular, harsh systolic murmur heard, normal S1-S2. Moving extremities, has blood on his clothing spatter down his pants, dried on his hands but denies any pain with range of motion of his extremities. At this time, do not see any wounds on his hands, believe this is blood from his laceration on his face. As his laceration is actively bleeding, did discussed repairing this immediately. Documenting provider has reviewed patient's vital signs: yes Course Course ED Course: Laceration was repaired immediately, please see procedure note. Did discuss doing an INR, will also check a CBC since he was home overnight and this laceration happened earlier this morning. He still is well within the realm of having a laceration repair on the face. We did discuss the importance in the future of having evaluation for wounds that might require suturing with in an appropriate time frame. We will proceed with head CT and facial CT to rule out injury, intracranial bleeds, facial trauma like fractures. Right now he is stable, wound has been repaired and is showing hemostasis. Reevaluation(s) Time of Reevaluation #1: 10:40 Reevaluation #1: Reviewed with patient and his daughter in a that is here that his INR is 2.93, this is acceptable. We did review that the head CT and facial bone CTs are not showing any acute fracture. Probably has had a fracture of his nose before as there is an area of prior fracture but is not acute. His laceration is no longer bleeding, has maintained hemostasis. He is bringing up that his right shoulder hurts. His [id number] does note that he has had some complaints of right shoulder pain. He feels it is worse after falling on the garbage can last night. We will x-ray his right shoulder while here. I do not feel clinically that there is any evidence of dislocation. Time of Reevaluation #2: 11:57 Vital Signs Vital signs: Initial Vital Signs Temperature 98.5 F 01/04/25 09:26 Temperature Source Temporal Artery Scan 01/04/25 09:26 Pulse Rate 75 01/04/25 09:26 Pulse Rhythm Regular 01/04/25 09:26 Pulse Strength 3+ Normal 01/04/25 09:26 Respiratory Rate 18 01/04/25 09:26 Blood Pressure 153/76 H 01/04/25 09:26 Blood Pressure Mean 101 01/04/25 09:26 Blood Pressure Position Sitting 01/04/25 09:26 Pulse Oximetry 97 01/04/25 09:26 Oxygen Delivery Method Room Air 01/04/25 09:26 Vital Signs Temperature 98.5 F 01/04/25 09:26 Pulse Rate 75 01/04/25 09:26 Respiratory Rate 18 01/04/25 09:26 Blood Pressure 153/76 H 01/04/25 09:26 Pulse Oximetry 97 01/04/25 09:26 Oxygen Delivery Method Room Air 01/04/25 09:26 Temperature 98.5 F 01/04/25 09:26 Pulse Rate 87 01/04/25 11:00 Respiratory Rate 18 01/04/25 11:00 Blood Pressure 141/74 H 01/04/25 11:00 Pulse Oximetry 97 01/04/25 11:00 Oxygen Delivery Method Room Air 01/04/25 09:26 Medications Administered Medications: Discontinued Medications Generic Name Dose Route Start Last Admin Trade Name Freq PRN Reason Stop Dose Admin Lidocaine/Epinephrine 3 ml 01/04/25 10:01 01/04/25 10:09 Lidocaine 1%-Epi 1:100,000 INFILTRATI 01/04/25 10:02 3 ml ONCE ONE Administration - Fall Lab Data Attestation: I reviewed the patient's lab results. Labs: Lab Results 01/04/25 Range/Units 10:06 WBC 8.86 (4.50-11.00) K/uL RBC 4.05 L (4.30-5.90) m/uL Hgb 12.6 L (13.5-17.5) gm/dL Hct 38.6 (37.0-53.0) % MCV 95 (80-100) fL MCH 31 (26-34) pg MCHC 33 (32-36) gm/dL RDW Coeff of Lorena 14.1 (11.5-15.5) % Plt Count 113 L (140-440) K/uL Neut % (Auto) 69.6 (42.0-72.0) % Lymph % (Auto) 22.8 (20-44) % Delta % (Auto) 6.2 (0.0-11.0) % Eos % (Auto) 1.0 (0.0-7.0) % Baso % (Auto) 0.3 (0.0-3.0) % Neut # (Auto) 6.16 (1.7-7.0) K/uL Lymph # (Auto) 2.02 (0.90-2.90) K/uL Delta # (Auto) 0.50 (0.00-0.90) K/UL Eos # (Auto) 0.09 (0.00-0.50) K/uL Baso # (Auto) 0.03 (0.00-0.30) K/uL Abs Immat Gran (auto) 0.01 (0.00-0.30) K/uL Imm/Tot Granulo (auto) 0.1 % INR 2.93 H (0.91-1.10) Imaging Data CT scan - head: Attestation: I have reviewed the pertinent imaging results. Radiologist's impression: Patient: PROSPER CANDELARIO Facility:?[facility] Patient ID:?[id number] Site Patient ID:?[id number]. Site :?[id number] Study:?CT-Head WITHOUT-01/04/2025 10:20:38 AM Ordering Physician:?Ean Barnes Final Report: INDICATION: Headaches. Trauma. Patient on Coumadin. TECHNIQUE: Noncontrast axial CT of the head is submitted. COMPARISON: Compared to prior study from March 13, 2024 FINDINGS: Mild cerebral atrophy. The ventricles, sulci and gyri are of normal size, shape and contour for age and degree of atrophy. Midline structures are centrally located. No convincing evidence of suspicious intra- or extra-axial fluid collections. Mild patchy regions of decreased attenuation within the periventricular and subcortical white matter of both cerebral hemispheres. 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 IMPRESSION: 1. No radiographic evidence of acute intracranial abnormalities. 2. Mild cerebral atrophy. 3. Mild supratentorial white matter changes that are non-specific, but statistically most likely related to chronic small vessel ischemic disease. Please note that all CT scans at this facility use dose modulation, iterative reconstruction, and/or weight-based dosing when appropriate to reduce radiation dose to as low as reasonably achievable. Dictated by Yogesh Jimenez MD @ 01/04/2025 10:27:51 AM (Electronic Signature) CT facial bones: Attestation: I have reviewed the pertinent imaging results. Radiologist's impression: Patient: [facility] Facility:?[facility] Patient ID:?[id number] Site Patient ID:?[id number]. Site :?[id number] Study:?CT-Facial WITHOUT-01/04/2025 10:20:50 AM Ordering Physician:?Ean Barnes Final Report: Indication: Trauma. Facial pain Technique: Noncontrast axial CT of the facial bones with coronal reformats are provided. No comparisons. Findings: Trace mucosal thickening within the ethmoid air cells. The remainder of the visualized paranasal sinuses are clear. The ostiomeatal complexes are patent bilaterally. The visualized intraorbital contents appear within normal limits. 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 Subtle, age-indeterminate fracture of the anterior left nasal bone. The remainder of the visualized osseous structures of the face appear intact. Impression: 1. Subtle age-indeterminate (likely chronic) fracture of the left anterior nasal bone. 2. No radiographic evidence of acute osseous injury. Please note that all CT scans at this facility use dose modulation, iterative reconstruction, and/or weight-based dosing when appropriate to reduce radiation dose to as low as reasonably achievable. Dictated by Yogesh Jimenez MD @ 01/04/2025 10:30:00 AM (Electronic Signature) XR right shoulder: Attestation: I have reviewed the pertinent imaging results. My impression: X-ray was visualized, do not see fracture on my preliminary review but humeral head does look high-riding. Radiologist's impression: Patient: [facility] Facility:?[facility] Patient ID:?[id number] Site Patient ID:?[id number]. Site :?[id number] Study:?XRay-Shoulder Right -01/04/2025 11:06:22 AM Ordering Physician:Scarlett Barnes Final Report: Indication: Fall Comparison: Two-view shoulder January 25, 2024 Technique: AP internal, external rotation, and scapular-Y views of the right shoulder were obtained Findings: There is no displaced fracture or dislocation. There is progression of severe degenerative changes of the shoulder with new somewhat high-riding appearance of the humeral head with marked loss of glenohumeral joint space. Severe osteophytes of the acromioclavicular joint are appreciated. The partially visualized lungs demonstrate chronic interstitial changes. Impression: Progression of severe degenerative changes of the shoulder with high-riding right-sided humeral head which can be seen in the setting of complete rotator cuff tears/G[place] shoulder. No evidence of displaced fracture. Dictated by Ankit Zuniga MD @ 01/04/2025 11:34:59 AM (Electronic Signature) Discharge Plan Discharge Clinical Impression: Fall, Closed head injury, Laceration of face, Acute pain of right shoulder Patient Disposition: Home, Self-Care Condition: Stable Instructions: Laceration (ED), Fall Prevention for Older Adults (ED), Head Injury (ED) Additional Instructions: INR today was 2.93. Do think that you should take your Coumadin tomorrow, contact the clinic Monday morning to give them your INR result from today and get further dosing instructions from them. Can use some bacitracin or Vaseline on the suture line on the bridge of the nose. Need to schedule a clinic follow- up next Monday to assess the wound and likely have sutures out. May shower as normal. There is no evidence of any skull fracture, no acute nasal fracture. If you have discomfort, can take Tylenol 1000 mg up to 3 times a day as needed. You have a mechanical mitral valve and it is very important that you stay anticoagulated in your therapeutic range. Your x-ray does show changes that are suspicious for rotator cuff pathology and probable tearing of this. In x-ray cannot completely evaluate tendons however; MRI is the diagnostic modality looking at the rotator cuff for pathology. You can discuss this further with your primary care provider, please make a follow-up appointment for this as well. Activity Level: Activity as Tolerated Prescriptions: No Action atorvastatin 20 mg tablet 20 mg PO HS warfarin 5 mg tablet 2.5 - 5 mg PO DAILY Rx Instructions: 2.5 mg Sun, Tues, Th; 5 mg all other days cholecalciferol (vitamin D3) [Vitamin D3] 50 mcg (2,000 unit) capsule 50 mcg PO DAILY celecoxib 200 mg capsule 200 mg PO DAILY clotrimazole 1 % cream 1 applic topical BID acetaminophen 500 mg tablet 500 mg PO Q6H PRN ascorbic acid (vitamin C) 1,000 mg tablet 1 g PO DAILY Follow Up/Referrals: Jack Smith MD [Primary Care Provider, Family Practice] Stand Alone Forms: [facility] Info Instructions Procedures Laceration Laceration 1: Pre procedure diagnosis: Nasal bridge laceration Post procedure diagnosis: Same Site marking: not applicable Verification/time out: correct patient, correct site and correct procedure Name of person performing procedure: Molly Mckoy Site: face Size (cm): 0.5 Description: linear Depth: simple, single layer Local Anesthetic: lidocaine 1% and with epi Amount of anesthesia used (mL): 3 (Only required 1.5 mL of local anesthesia for good wound preparation.) Pre-repair: wound explored Skin layer closed with: other (Ethilon) Size (cm): 5-0 Number of sutures: 3 Technique: simple, interrupted Estimated blood loss (if any): less than 5mls Conclusion: patient tolerated procedure
--- NOTE | 2025-01-04 09:51 | CRLHL7_ITS ---
For Patients: As a result of the Century Cures Act, medical imaging exams and procedure reports are released immediately into your electronic medical record. You may view this report before your referring provider. If you have questions, please contact your health care provider. INDICATION: Headaches. Trauma. Patient on Coumadin. TECHNIQUE: Noncontrast axial CT of the head is submitted. COMPARISON: Compared to prior study from March 13, 2024 FINDINGS: Mild cerebral atrophy. The ventricles, sulci and gyri are of normal size, shape and contour for age and degree of atrophy. Midline structures are centrally located. No convincing evidence of suspicious intra- or extra-axial fluid collections. Mild patchy regions of decreased attenuation within the periventricular and subcortical white matter of both cerebral hemispheres. 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 IMPRESSION: 1. No radiographic evidence of acute intracranial abnormalities. 2. Mild cerebral atrophy. 3. Mild supratentorial white matter changes that are non-specific, but statistically most likely related to chronic small vessel ischemic disease. Please note that all CT scans at this facility use dose modulation, iterative reconstruction, and/or weight-based dosing when appropriate to reduce radiation dose to as low as reasonably achievable. Dictated by Yogesh Jimenez MD @ 01/04/2025 10:27:51 AM (Electronically Signed)
--- NOTE | 2025-01-04 09:51 | CRLHL7_ITS ---
For Patients: As a result of the Century Cures Act, medical imaging exams and procedure reports are released immediately into your electronic medical record. You may view this report before your referring provider. If you have questions, please contact your health care provider. Indication: Trauma. Facial pain Technique: Noncontrast axial CT of the facial bones with coronal reformats are provided. No comparisons. Findings: Trace mucosal thickening within the ethmoid air cells. The remainder of the visualized paranasal sinuses are clear. The ostiomeatal complexes are patent bilaterally. The visualized intraorbital contents appear within normal limits. 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 Subtle, age-indeterminate fracture of the anterior left nasal bone. The remainder of the visualized osseous structures of the face appear intact. Impression: 1. Subtle age-indeterminate (likely chronic) fracture of the left anterior nasal bone. 2. No radiographic evidence of acute osseous injury. Please note that all CT scans at this facility use dose modulation, iterative reconstruction, and/or weight-based dosing when appropriate to reduce radiation dose to as low as reasonably achievable. Dictated by Yogesh Jimenez MD @ 01/04/2025 10:30:00 AM (Electronically Signed)
--- OUTSIDE RECORDS SUMMARY | 2025-01-04 10:01 | XMS_ITS ---
Author Name Interface, [id number] lity Address [address] [place] [address] [address], [place] [address] Organization [facility] Address [address] [place], [place] [address] [place] [address] Allergies and Adverse Reactions Medication/Group Name Reaction [...]
--- OUTSIDE RECORDS SUMMARY | 2025-01-04 10:01 | XMS_ITS ---
Author Name Interface, [id number] lity Address [address] [place] [address] [address] [address] Organization [facility] Address [address] [place], [place] [address] [place] [address] Allergies and Adverse Reactions Medication/Group Name Reaction [...]
--- OUTSIDE RECORDS SUMMARY | 2025-01-04 10:01 | XMS_ITS | CCD ---
Author Name Interface, [id number] lity Address [address] [place] [address] [address] [place] [address] Organization [facility] Address [address] [place] [address] [address] [place] [address] Care Team Providers Care Meat Slicer Name Role Phone Debra KIRAN, Jovanny Unavailable [...]
--- OUTSIDE RECORDS SUMMARY | 2025-01-04 10:01 | XMS_ITS | CCD ---
Author Name Interface, [id number] lity Address [address] [place] [address] [address] [place] [address] Organization [facility] Address [address] [place] [address] [address] [place] [address] Care Team Providers Care Side Trimmer Name Role Phone Debra KIRAN, Jovanny Unavailable [...]
[2025-01-04] MEDS: LIDOCAINE 1%-EPI 1:100,000 3 ML INFILTRATI (10:09)
[2025-01-04 10:14] LABS: Hematocrit 38.6 % (37.0-53.0); Hemoglobin* 12.6 gm/dL (13.5-17.5); Immature Granulocytes Abs Auto 0.01 K/uL (0.00-0.30); Immature Granulocytes Pct Auto 0.1 %; Lymphocytes Absolute Auto 2.02 K/uL (0.90-2.90); Mean Corpuscular HGB Conc 33 gm/dL (32-36); Mean Corpuscular Hemoglobin 31 pg (26-34); Mean Corpuscular Volume 95 fL (80-100); RDW Coefficient of Variation % 14.1 % (11.5-15.5); Red Blood Count 4.05 m/uL (4.30-5.90); White Blood Count* 8.86 K/uL (4.50-11.00)
[2025-01-04 10:17] LABS: Slide Review Reflex No
[2025-01-04 10:30] LABS: INR 2.93 (0.91-1.10); Prothrombin Time 31.8 Seconds
--- NOTE | 2025-01-04 10:41 | CRLHL7_ITS ---
For Patients: As a result of the Century Cures Act, medical imaging exams and procedure reports are released immediately into your electronic medical record. You may view this report before your referring provider. If you have questions, please contact your health care provider. Indication: Fall Comparison: Two-view shoulder January 25, 2024 Technique: AP internal, external rotation, and scapular-Y views of the right shoulder were obtained Findings: There is no displaced fracture or dislocation. There is progression of severe degenerative changes of the shoulder with new somewhat high-riding appearance of the humeral head with marked loss of glenohumeral joint space. Severe osteophytes of the acromioclavicular joint are appreciated. The partially visualized lungs demonstrate chronic interstitial changes. Impression: Progression of severe degenerative changes of the shoulder with high-riding right-sided humeral head which can be seen in the setting of complete rotator cuff tears/Chaves shoulder. No evidence of displaced fracture. Dictated by Ankit Zuniga MD @ 01/04/2025 11:34:59 AM (Electronically Signed)
[2025-01-04 11:00] VITALS: BP 141/74; PULSE 87; RESP 18; O2SAT 97
== END 2025-01-04 12:30 | disposition home or self-care (01) ==
PROVIDERS: Emergency Provider Family Medicine; PCP Surgery
DX: S01.21XA Laceration without foreign body of nose, initial encounter (principal); M25.511 Pain in right shoulder; W18.00XA Striking against unspecified object with subsequent fall, initial encounter
CPT/HCPCS: 12011; 36415; 70450; 70486; 73030; 85025; 85610; 99284